=== PATIENT | female | born 1950 | race Caucasian/White ===

== ENCOUNTER → 2024-11-02 | Outpatient (CLI) | payer MEDICARE, SELFPAY ==
[2024-11-02 08:32] LABS: Basophils % (Auto) 0 % (0-2.5); Eosinophils # (Auto) 0.3 Thou/mm3 (0.0-0.5); Eosinophils % (Auto) 3 % (0-10); Hematocrit 43.4 % (36.0-46.0); Hemoglobin 14.1 g/dL (12.0-16.0); Immature Granulocytes % (Auto) 0 % (0-0); Immature Granulocytes Auto 0.02 Thou/mm3 (0.00-0.00); Lymphocytes # (Auto) 2.6 Thou/mm3 (1.0-4.8); Lymphocytes % (Auto) 31 % (10-50); Mean Corpuscular HGB Conc 32.5 g/dl (31.0-37.0); Mean Corpuscular Hemoglobin 30.4 pg (25.0-35.0); Mean Corpuscular Volume 94 fL (80-100); Monocytes # (Auto) 0.6 Thou/mm3 (0.0-0.8); Monocytes % (Auto) 7 % (0-12); Neutrophils # (Auto) 5.1 Thou/mm3 (1.8-7.7); Neutrophils % (Auto) 59 % (37-80); Nucleated Red Blood Cell % 0 /100 WBC (0); Platelet Count 281 Thou/mm3 (140-440); RDW Standard Deviation 44.7 fL (36.4-46.3); Red Blood Count 4.64 Miln/mm3 (4.00-5.20); White Blood Count 8.6 Thou/mm3 (3.6-11.0)
[2024-11-02 08:55] LABS: Alanine Aminotransferase 14 U/L (10-49); Albumin, Serum 4.3 gm/dL (3.4-4.8); Albumin/Globulin Ratio 2.3 (1.2-2.2); Alkaline Phosphatase 90 U/L (46-116); Anion Gap 8 (7-16); Aspartate Amino Transferase 20 U/L (0-34); BUN/Creatinine Ratio 27 Ratio (12-20); Bilirubin,Total 0.6 mg/dL (0.3-1.2); Blood Urea Nitrogen 24 mg/dL (9-23); Calcium 9.1 mg/dL (8.3-10.6); Calcium (Corrected) 9.1 mg/dL (8.5-10.1); Carbon Dioxide 29.9 mMol/L (20.0-31.0); Cardiac Risk Estimate 2.5 RATIO (3.7-5.6); Chloride 106 mMol/L (98-107); Cholesterol 134 mg/dL (132-200); Creatinine (Component) 0.9 mg/dL (0.6-1.3); Globulin 1.9 gm/dL (2.3-3.5); Glucose 99 mg/dL (74-106); HDL Cholesterol 53 mg/dL (40-60); LDL Cholesterol,Calculated 66 mg/dL (0-130); Osmolality,Calculated 290 (275-295); Potassium 4.7 mMol/L (3.4-5.1); Sodium 144 mMol/L (136-145); Total Protein 6.2 gm/dL (5.7-8.2); Triglycerides 77 mg/dL (30-150); eGFR > 60 See Note
== END | disposition home or self-care (01) ==
LOC: COPL 07:55
PROVIDERS: PCP Family Medicine; Referring Provider Family Medicine; Visit Provider Family Medicine
DX: I10 Essential (primary) hypertension (principal); K21.9 Gastro-esophageal reflux disease without esophagitis; E78.2 Mixed hyperlipidemia
CPT/HCPCS: 36415; 80053; 80061; 85025

== ENCOUNTER 2024-11-26 10:33 | Inpatient (IN) | payer MEDICARE, SELFPAY ==
[2024-11-26] VITALS (10 sets, daily range): BP systolic 150–203; BP diastolic 60–98; PULSE 57–100; RESP 15–18; TEMP 36.6–36.8; O2SAT 96–100; BMI 24.5
--- NOTE | 2024-11-26 | XR_ITS ---
Examinations: MRI Brain without intravenous contrast. MRA brain without intravenous contrast. MRA carotids without intravenous contrast 3-D vascular reconstructions Date and time of exam: November 26, 2024 1323 hours Indication: Stroke alert, onset focal neurologic deficit today weakness slurred speech Technique: Multiple axial and sagittal images of the brain have been obtained MRA brain carotid images without contrast obtained, including 3-D postprocessing, vascular maximum intensity projection images Findings: Sell[place] is not enlarged. The optic chiasm and infundibular stalk are not remarkable. Prepontine and interpeduncular cisterns are not enlarged. No localized enlargement of the medulla or kyaw. Fourth ventricle and cerebellar tonsils normal in position. Subacute hemorrhage is not seen. Fourth ventricle is midline. Mass in the cerebellopontine angle region is not evident. 7th and 8th nerve complexes exhibits symmetry. Globes are symmetrical with no retro-orbital mass. Increased white matter signal significant Diffusion-weighted images demonstrate soft foci of restricted diffusion right parietal lobe, right caudate nucleus right parietal white matter Mass-effect upon the ventricular system is not identified. MRA carotid images no significant carotid stenoses. 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
--- NOTE | 2024-11-26 10:42 | PC.NURSE ---
PT BIB BY AMBULANCE FOR WEAKNESS., PER EMS STATED 0500 PT BALANCE WAS OFF AND WAS HAVING SLURRED SPEECH, PT DENIES SYMPTOMS BUT DOES COMPLAIN OF WEAKNESS, PT WAS HYPERTENSIVE 240/110, 185/78. FSBS 115, PT WAS NEG OF GFAST SCALE. PT IS AAOX4 SHE DID STATE SHE FELL AT HOME BUT DENIES ANY LOC OR INJURY.
--- NOTE | 2024-11-26 10:43 | PC.NURSE ---
per dr. vo no stroke alert
--- NOTE | 2024-11-26 10:45 | XR_ITS ---
Examination: CT brain head without contrast. 2-D sagittal coronal reconstructions Date and time of exam:November 26, 2024 1106 hours INDICATIONS: Onset slurred speech generalized weakness beginning this morning CTDI: vol (mGy):49.6 DLP: (mGycm):984 Technique: Multiple CT axial sections of the brain have been obtained, 5 mm slice thickness. Contrast has not been administered. 2-D sagittal, coronal reconstructions have been obtained Low dose protocols were performed. One or more of the following dose reduction techniques were used; automated exposure control, adjustment of the mA and/or KV according to patient size, use of iterative reconstruction technique. Findings: No significant ventricular enlargement. Intra-axial or extra-axial hemorrhage density is not seen. No mass effect or midline shift Basal cisterns are not remarkable. Fourth ventricle is midline. Cranial vault intact. Impression: Negative for acute hemorrhage, mass effect or midline shift Consider brain MRI follow-up, stroke protocol
--- NOTE | 2024-11-26 10:45 | EKG_ITS ---
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
--- NOTE | 2024-11-26 10:46 | XR_ITS ---
Examination: AP chest single view Technique one AP portable semiupright chest single view Exam date and time: November 26, 2024 1052 hours INDICATIONS: Weakness chest pain beginning today. FINDINGS: Normal heart size Lungs are clear. Moderate osteopenia IMPRESSION: No active disease
--- NOTE | 2024-11-26 10:55 | PD.EDADULT ---
ED General RME/HPI General Chief complaint: Weakness Stated complaint: WEAKNESS Time Seen by Provider: 11/26/24 11:53 Arrival date/time: 11/26/24 10:33 RME / HPI RME / HPI narrative: Patient is a 74 years old female with PMH of HTN and anxiety presented to the ED due to generalized weakness and ?slurred speech. Patient reports her symptoms has resolved completely by the time she arrived to the ED. She reports she had some argument with her she developed weakness and difficulty walking as a result of it. She reports her over reacted and reports no slurred speech, stating at that time her mouth was covered with blanket and her has difficulty hearing. She takes all her medication appropriately. She denied any weakness on specific side of the body, dizziness, facial droop, fever or chills. She denies any substance use including alcohol and tobacco. arrived later to the bedside reporting he also noticed left facial droop at that time. Related Data Home Medications ?Medication ?Instructions ?Recorded ?Confirmed enalapril maleate 20 mg tablet 20 mg PO QDAY 11/24/18 11/26/24 meloxicam 15 mg tablet 15 mg PO QDAY 11/24/18 11/26/24 nadolol 20 mg tablet 20 mg PO QDAY 11/24/18 11/26/24 omeprazole 40 mg capsule,delayed 40 mg PO QDAY 11/24/18 11/26/24 release atorvastatin 20 mg tablet 20 mg PO DAILY 10/26/23 11/26/24 clorazepate dipotassium 7.5 mg 7.5 mg PO DAILY PRN Anxiety 10/26/23 11/26/24 tablet famotidine 20 mg tablet 20 mg PO BID 10/26/23 11/26/24 Allergies Allergy/AdvReac Type Severity Reaction Status Date / Time shellfish derived Allergy Severe Hives Verified 11/26/24 11:21 Sulfa (Sulfonamide Allergy Severe Hives Verified 11/26/24 11:21 Antibiotics) Review of Systems Review of Systems Systems Reviewed: All systems reviewed, normal except as documented ED Exam Narrative Physical exam: Gen: Well-developed and well-nourished. HEENT: NCAT, PERRLA, EOMI, MMM, anicteric conjunctivae. CVS: normal S1 and S2. RRR. No M/R/G. Resp: CTA B/L. No rhonchi, rales, crackles or wheezing. Abd: soft, non-tender, non-distended. BS+ in all 4 quadrants. MSK: Good ROM in BUE & BLE. No edema or rash. Neuro: CN II-XII grossly intact. Strength 5/5 in BUE & BLE. Alert and oriented x3. Psych: appropriate mood and affect. Course Course Course Narrative: Head CT negative for acute hemorrhage. Labs are WNL. Teleneuro consulted, patient was given aspirin 325 mg. MRI showed multiple acute infarcts right parietal lobe right caudate nucleus. Stroke alert called. Quality Measures none Orders Category Date Time Status COVID-19 Screening Questionnaire NOW Care 11/26/24 14:59 Active Decision to Admit X1 Care 11/26/24 14:59 Completed EKG (ED ONLY) *Do not use* NOW Care 11/26/24 10:45 Completed MRI Screening NOW Care 11/26/24 12:06 Active Nurse Swallow Screen X1 Care 11/26/24 15:[address] angio stroke protocol Stat Exams 11/26/24 15:[address] head/brain wo con Stat Exams 11/26/24 10:45 Completed CXRP [XR chest 1V portable] Stat Exams 11/26/24 10:46 Completed EKG (ED Only) Stat Exams 11/26/24 10:45 Draft MR stroke protocol Stat Exams 11/26/24 Completed BMP [Basic Metabolic Panel] Stat Lab 11/26/24 08:55 Completed CBC Stat Lab 11/26/24 08:55 Completed Aspirin Med 11/26/24 14:59 Discontinued 325 mg PO X1 ONE DiphenhydrAMINE INJ [Benadryl Inj] Med 11/26/24 13:02 Discontinued 50 mg IVP X1 ONE Vital Signs Vital signs: Vital Signs Temperature 98.1 F 11/26/24 10:52 Pulse Rate 73 11/26/24 10:52 Respiratory Rate 16 11/26/24 10:52 Blood Pressure 203/98 H 11/26/24 10:52 Pulse Oximetry (%) 98 11/26/24 10:52 Oxygen Delivery Method Room Air 11/26/24 10:52 [facility] Patient data External records reviewed:: [facility] previous records and EMS form Clinical information provided by:: patient and EMS Social determinants that could affect healthcare access:: none Patient has the following chronic illnesses:: HTN and anxiety How is presenting disease/condition affected by chronic disease/condition?: caused by Evaluation data The following diagnostics were reviewed and interpreted by me:: lab results, radiology exam(s) and EKG tracing(s) Lab and/or radiology exams considered but not ordered:: echo Interpretation Summary: Head CT negative for acute hemorrhage. Medications Medications considered but not ordered:: Clopidogrel, atorvastatin Medication administrations:: Medication Administration History Discontinued Medications Aspirin (Aspirin 325 Mg Tablet) 325 mg PO X1 ONE Stop: 11/26/24 15:00 Diphenhydramine HCl (Diphenhydramine Inj 50 Mg/Ml Vial) 50 mg IVP X1 ONE Stop: 11/26/24 13:03 Last Admin: 11/26/24 13:05 Dose: 50 mg Documented By: BD Aspirin 325 mg. Consultations Consultation(s) initiated? (list below): No Diagnosis Differential Diagnosis ED Complaint MDM: ICH, CVA, seizure, TIA, HTN emergency, stress reaction Most likely diagnosis given after review of the tests above:: Acute stroke Admission Indicated Admission indicated?: indicated Explain why admission is indicated or not indicated:: Stroke work up and observation is indicated. Admission Request Was there a request for admission?: No Disposition Plan Disposition Plan: Admit Medical Decision Making Differential Diagnosis Differential Diagnosis: ICH, CVA, seizure, TIA, HTN emergency, stress reaction Lab Data 11/26/24 08:55 11/26/24 08:55 Labs: Lab Results 11/26/24 Range/Units 08:55 WBC 10.7 (3.6-11.0) Thou/mm3 RBC 4.78 (4.00-5.20) Miln/mm3 Hgb 14.6 (12.0-16.0) g/dL Hct 44.3 (36.0-46.0) % MCV 93 (80-100) fL MCH 30.5 (25.0-35.0) pg MCHC 33.0 (31.0-37.0) g/dl RDW Std Deviation 43.6 (36.4-46.3) fL Plt Count 284 (140-440) Thou/mm3 Neut % (Auto) 67 (37-80) % Lymph % (Auto) 25 (10-50) % Tyrrell % (Auto) 6 (0-12) % Eos % (Auto) 1 (0-10) % Baso % (Auto) 0 (0-2.5) % Neut # (Auto) 7.1 (1.8-7.7) Thou/mm3 Lymph # (Auto) 2.7 (1.0-4.8) Thou/mm3 Tyrrell # (Auto) 0.7 (0.0-0.8) Thou/mm3 Eos # (Auto) 0.2 (0.0-0.5) Thou/mm3 Baso # (Auto) 0.0 (0.0-0.2) Thou/mm3 Immature Gran # (Auto) 0.03 H (0.00-0.00) Thou/mm3 Absolute Nucleated RBC 0.00 (0.00-0.00) Thou/mm3 Immature Gran % 0 (0-0) % Nucleated RBC % 0 (0) /100 WBC Sodium 144 (136-145) mMol/L Potassium 4.2 (3.4-5.1) mMol/L Chloride 108 H (98-107) mMol/L Carbon Dioxide 27.7 (20.0-31.0) mMol/L Anion Gap 8 (7-16) BUN 21 (9-23) mg/dL Creatinine 0.9 (0.6-1.3) mg/dL Estim Creat Clear Calc 54.1 L (>60) mL/min eGFR > 60 (60 - ) See Note BUN/Creatinine Ratio 23 H (12-20) Ratio Glucose 108 H (74-106) mg/dL Calculated Osmolality 290 (275-295) Calcium 9.4 (8.3-10.6) mg/dL Discharge Plan Plan Patient Disposition: Admit Acute Care w/in Hospital Prescriptions/Referrals Prescriptions/Med Rec: No Action enalapril maleate 20 mg Tablet 20 mg PO QDAY meloxicam 15 mg Tablet 15 mg PO QDAY omeprazole 40 mg Capsule,Delayed Release(Dr/Ec) 40 mg PO QDAY nadolol 20 mg Tablet 20 mg PO QDAY atorvastatin 20 mg tablet 20 mg PO DAILY Patient Comments: TAKE 1 TABLET BY MOUTH EVERY DAY famotidine 20 mg tablet 20 mg PO BID Patient Comments: TAKE 1 TABLET BY MOUTH TWICE A DAY FOR 90 DAYS clorazepate dipotassium 7.5 mg tablet 7.5 mg PO DAILY PRN (Reason: Anxiety) Patient Comments: TAKE 1 TABLET BY MOUTH EVERY DAY FOR 90 DAYS Problem List Clinical Impression: Stroke Patient/Caregiver Discharge Instructions Print Language: Burkinan Stand Alone Forms: Naty Award Info., Patient Portal Info Letter
--- NOTE | 2024-11-26 11:11 | PC.NURSE ---
PER AT BEDSIDE AROUND 1000 WENT IN TO CHECK SHE WAS SLEEPING LATER THAN USUAL AND WHEN HE STARTED TO TALK TO HER HER SPEECH WAS SLURRED. HE STATES WHEN HE LOOKED AT HER SHE HAD LEFT SIDED FACIAL DROOP. 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
[2024-11-26 11:15] LABS: Basophils % (Auto) 0 % (0-2.5); Eosinophils # (Auto) 0.2 Thou/mm3 (0.0-0.5); Eosinophils % (Auto) 1 % (0-10); Hematocrit 44.3 % (36.0-46.0); Hemoglobin 14.6 g/dL (12.0-16.0); Immature Granulocytes % (Auto) 0 % (0-0); Immature Granulocytes Auto 0.03 Thou/mm3 (0.00-0.00); Lymphocytes # (Auto) 2.7 Thou/mm3 (1.0-4.8); Lymphocytes % (Auto) 25 % (10-50); Mean Corpuscular Hemoglobin 30.5 pg (25.0-35.0); Mean Corpuscular Volume 93 fL (80-100); Monocytes # (Auto) 0.7 Thou/mm3 (0.0-0.8); Monocytes % (Auto) 6 % (0-12); Neutrophils # (Auto) 7.1 Thou/mm3 (1.8-7.7); Neutrophils % (Auto) 67 % (37-80); Nucleated Red Blood Cell % 0 /100 WBC (0); Platelet Count 284 Thou/mm3 (140-440); RDW Standard Deviation 43.6 fL (36.4-46.3); Red Blood Count 4.78 Miln/mm3 (4.00-5.20); White Blood Count 10.7 Thou/mm3 (3.6-11.0)
[2024-11-26 11:35] LABS: Anion Gap 8 (7-16); BUN/Creatinine Ratio 23 Ratio (12-20); Blood Urea Nitrogen 21 mg/dL (9-23); Calcium 9.4 mg/dL (8.3-10.6); Carbon Dioxide 27.7 mMol/L (20.0-31.0); Chloride 108 mMol/L (98-107); Creatinine (Component) 0.9 mg/dL (0.6-1.3); Estimated Creatinine Clearance 54.1 mL/min (>60); Glucose 108 mg/dL (74-106); Osmolality,Calculated 290 (275-295); Potassium 4.2 mMol/L (3.4-5.1); Sodium 144 mMol/L (136-145); eGFR > 60 See Note
--- NOTE | 2024-11-26 12:52 | PC.NURSE ---
IN WITH PT
[2024-11-26] MEDS: DiphenhydrAMINE INJ 50 MG/ML VIAL IVP (13:05)
--- NOTE | 2024-11-26 14:24 | PC.NURSE ---
VITALS NOT DONE 1400 PT WAS IN MRI
--- NOTE | 2024-11-26 14:45 | PC.NURSE ---
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 Stat consult entered with [facility] at 1443. Called ED to have the neuro cart placed in the room.
--- NOTE | 2024-11-26 15:13 | PD.TNEURO ---
[facility] Consultation Consultation Date 11/26/24 Most Recent Vital Signs Last Vital Signs Temp 98.2 F 11/26/24 14:28 Pulse 60 11/26/24 14:28 Resp 15 11/26/24 14:28 BP 176/93 H 11/26/24 14:28 Pulse Ox 99 11/26/24 14:28 O2 Del Method Room Air 11/26/24 14:28 Consultation Narrative [facility] Consult Services Stat Consult Patient Name:???alla dunlap Date of :???1950 Identification Number:??? Date of Service:???11/26/2024 14:21:54 Diagnosis:?I63.89 - Cerebrovascular accident (CVA) due to other mechanism (HCCC) ?G93.49 - Encephalopathy Multifactorial Impression Acute neurological symptoms with possible stroke The patient presented with sudden onset weakness, gait instability, and falls starting at 5 AM. She denies prior similar episodes. 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 These symptoms, combined with very high blood pressure, raise concern for a possible acute stroke. However, the etiology remains unclear - it could be due to hypertensive emergency or an ischemic event. CTH is unremarkable. An MRI/MRA has been performed, but results are pending full interpretation. ? Recommendations: Our recommendations are outlined below. Laboratory Studies :Lipid panel I orderedHemoglobin A1c Antithrombotic Medication :Permissive hypertension, Antihypertensives with prn for first 24-48 hrs post stroke onset. If BP greater than 220/120 give Labetalol IV or Vasotec IV - Start aspirin 325 mg loading dose, then continue with baby aspirin Nursing Recommendations :IV Fluids, avoid dextrose containing fluids, Maintain euglycemia Neuro checks q4 hrs x 24 hrs and then per shift Head of bed 30 degrees Continue with Telemetry Consultations :Recommend Speech therapy if failed dysphagia screen Physical therapy/Occupational therapy DVT Prophylaxis :Choice of Primary Team Disposition :Neurology will follow Metrics: Dispatch Time: 11/26/2024 14:21:54 Callback Response Time: 11/26/2024 14:27:31 Primary Provider Notified of Diagnostic Impression and Management Plan on: 11/26/2024 15:04:37 CT HEAD: As Per Radiologist CT Head Showed No Acute Hemorrhage or Acute Core Infarct Chief Complaint: Weakness History of Present Illness:Patient is a 74 year old Female. The patient, Ms. Alla Dunlap, presents with acute onset of neurological symptoms. At 5:00 AM on the day of presentation, she experienced difficulty getting out of bed, feeling woozy and weak. She reports inability to walk straight, veering sideways, and falling multiple times. The patient denies any prior similar episodes. She denies dizziness but confirms generalized weakness. The patient also mentions high blood pressure on the day of presentation. The patient's , who is at the bedside, reports minimal left-sided facial droop, which is unusual for the patient. There is also noted slurred speech. The patient denies any history of smoking or alcohol consumption. ? Past Medical History: ?Hypertension Other PMH:? Anxiety Medications: No Anticoagulant use? No Antiplatelet use Reviewed EMR for current medications Allergies:? Reviewed Social History: Smoking: No Alcohol Use: No Family History: There is no family history of premature cerebrovascular disease pertinent to this consultation ROS : 14 Points Review of Systems was performed and was negative except mentioned in HPI. Past Surgical History: There Is No Surgical History Contributory To Today?s Visit ? Examination: BP(176/93),?Pulse(60), 1A: Level of Consciousness - Alert; keenly responsive?+ 0 1B: Ask Month and Age - Both Questions Right?+ 0 1C: Blink Eyes & Squeeze Hands - Performs Both Tasks?+ 0 2: Test Horizontal Extraocular Movements - Normal?+ 0 3: Test Visual García - No Visual Loss?+ 0 4: Test Facial Palsy (Use Grimace if Obtunded) - Minor paralysis (flat nasolabial fold, smile asymmetry)?+ 1 5A: Test Left Arm Motor Drift - No Drift for 10 Seconds?+ 0 5B: Test Right Arm Motor Drift - No Drift for 10 Seconds?+ 0 6A: Test Left Leg Motor Drift - No Drift for 5 Seconds?+ 0 6B: Test Right Leg Motor Drift - No Drift for 5 Seconds?+ 0 7: Test Limb Ataxia (FNF/Heel-Aaron) - No Ataxia?+ 0 8: Test Sensation - Normal; No sensory loss?+ 0 9: Test Language/Aphasia - Normal; No aphasia?+ 0 10: Test Dysarthria - Mild-Moderate Dysarthria: Slurring but can be understood?+ 1 11: Test Extinction/Inattention - No abnormality?+ 0 NIHSS Score:?2 Spoke with :?Dr. Vigil This consult was conducted in real time using interactive audio and video technology. Patient was informed of the technology being used for this visit and agreed to proceed. Patient located in hospital and provider located at home/office setting. Patient is being evaluated for possible acute neurologic impairment and high probability of imminent or life - threatening deterioration.I spent total of 35 minutes providing care to this patient, including time for face to face visit via telemedicine, review of medical records, imaging studies and discussion of findings with providers, the patient and / or family. Dr Jules Henriquez [facility] For Inpatient follow-up with [facility] physician please call [facility] at . As we are not an outpatient service for any post hospital discharge needs please contact the hospital for assistance. If you have any questions for the [facility] physicians or need to reconsult for clinical or diagnostic changes please contact us via [facility] at .
[2024-11-26] MEDS: Aspirin 325 MG TABLET PO (15:24)
[2024-11-26 16:27] LABS: Glucose Estimated Average 108 mg/dL (80-131); Hemoglobin A1C 5.4 % Hgb (4.8-6.0)
--- NOTE | 2024-11-26 16:28 | ESHP_ITS ---
<Statement entered by Abdirahman Garibay MD - 11/26/24 18:21> This patient is a 74-year-old female with past medical history of anxiety and hypertension presented with signs symptoms of left-sided facial droop and slurred speech with generalized weakness started at 7 AM. Patient presented for stroke workup. Head CT was unremarkable. MRI brain was significant for acute infarct in parietal lobe. Patient was out of window for tPA. Aspirin 325 mg was given x 1. Will allow for permissive hypertension. Neurology has been consulted for further recommendations. Ordered PT/speech evaluation. Med rec pending. Will follow-up with neurology recommendations. All labs and orders were reviewed. I saw and examined the patient, and I agree with current management stated by Dr Lauren MD,PGY1. Plan of care was discussed with the attending physician and resident physician. Disclaimer: Despite multiple revisions, due to the dictation software being used, the document bellow may not be free of grammatical errors including phonetic/typographic errors. However, this does not deter from our commitment to providing health care in the patient's best interest in mind. Dr. Lani MD, PGY 2 Documentation for date of: 11/26/24 HPI History of Present Illness History of present illness: Alla Vick is a 74-year-old female with past medical history of hypertension, gout, and anxiety who presented to the ED on 11/26 for gait instability that started after waking up at 5 AM in the morning. She states that after waking up she tried to walk to the bathroom and had difficulty due to gait instability. Denies paresthesias, vision changes, or headaches. called paramedics around 10 AM and was brought to the ED. In ED, she was told that she had slurred speech and left-sided facial droop that had resolved. Walk to bathroom in ED and states that gait instability improved. Denies prior episodes of gait instability. States that mother and grandmother had hemorrhagic strokes in their 50s and 60s. In ED, MRI/MRA positive for acute infarcts of the right parietal lobe and right caudate nucleus. CT head negative for hemorrhage, mass effect, or midline shift. EKG showed NSR of 61 bpm. BP noted to be 200/98 but it since decreased to 166/60 without intervention and allowing for permissive hypertension. Otherwise vital signs stable and labs insignificant. Given aspirin loading dose of 325 mg x 1 and started LR at 110 cc/h. Admitted for further management of ischemic stroke. PMHx: Hypertension, gout, anxiety Medications: Atorvastatin 20 mg p.o. daily, enalapril 20 mg p.o. daily, nadolol 20 mg p.o. daily, omeprazole 40 mg p.o. daily, meloxicam 15 mg p.o. daily, clorazepate 7.5 mg p.o. daily. FHx: Hemorrhagic strokes in mom and grandmother in 50s and 60s SHx: Denies smoking cigarettes, drinking alcohol, or illicit drug use PSHx: Cholecystectomy at age 28 Review of Systems Review of Systems Systems Reviewed: All systems reviewed, normal except as documented Exam Vital Signs Temp Pulse Resp BP Pulse Ox O2 Del Method 98.0 F 60 15 166/60 H 100 Room Air 11/26/24 15:47 11/26/24 15:47 11/26/24 15:47 11/26/24 15:47 11/26/24 15:47 11/26/24 15:47 Narrative Exam General: AOx3, no acute distress, able to speak full sentences HEENT: NC/AT, mucous membranes moist, bilateral sclera anicteric Cardiovascular: regular rate and rhythm, S1/S2 present, no murmurs appreciated Pulmonary: clear to auscultation bilaterally, no rales/rhonchi/wheezes Abdominal: soft, non-tender, non-distended, no rebound/guarding, normal bowel sounds present Musculoskeletal: normal ROM, no peripheral edema Skin: warm and dry, intact, no rashes Neuro: CN II-XII intact, no focal deficits Results: Labs 11/26/24 08:55 11/26/24 08:55 Labs: Short CBC 11/26/24 Range/Units 08:55 WBC 10.7 (3.6-11.0) Thou/mm3 Hgb 14.6 (12.0-16.0) g/dL Hct 44.3 (36.0-46.0) % Plt Count 284 (140-440) Thou/mm3 BMP 11/26/24 08:55 Sodium 144 Potassium 4.2 Chloride 108 H Carbon Dioxide 27.7 BUN 21 Creatinine 0.9 Glucose 108 H Calcium 9.4 Quality Measures Quality Measures none Advance care planning discussed with:: other Medications Home Medications and Allergies Home Medications ?Medication ?Instructions ?Recorded ?Confirmed ?Type enalapril maleate 20 mg tablet 20 mg PO QDAY 11/24/18 11/26/24 History meloxicam 15 mg tablet 15 mg PO QDAY 11/24/1811/26 History nadolol 20 mg tablet 20 mg PO QDAY 11/24/1811/26 History omeprazole 40 mg capsule,delayed 40 mg PO .COMPLEX 10/1411/26/24 History release atorvastatin 20 mg tablet 20 mg PO DAILY 10/26/2312/18 History clorazepate dipotassium 7.5 mg 7.5 mg PO DAILY PRN Anx iety 10/26/23 11/26/24 History tablet famotidine 20 mg tablet 20 mg PO BID 10/26/23 History Allergies Allergy/AdvReac Type Severity Reaction Status Date / Time shellfish derived Allergy Severe Hives Verified 11/26/24 11:21 Sulfa (Sulfonamide Allergy Severe Hives Verified 11/26/24 11:21 Antibiotics) Visit Medications Acetaminophen (Acetaminophen 325 Mg Tablet) 650 mg PO Q6H PRN PRN Reason: PAIN OR FEVER > 100.4 Stop: 12/26/24 15:46 Aspirin (Aspirin Ec 81 Mg Tabec) 81 mg PO QDAY [facility] Stop: 12/27/24 08:59 Atorvastatin Calcium (Atorvastatin Calcium 20 Mg Tablet) 80 mg PO HS [facility] Stop: 12/26/24 20:59 Lactated Ringer's (Lactated Ringers) 1,000 mls @ 110 mls/hr IV .Q9H6M [facility] Stop: 12/26/24 15:57 Ondansetron HCl (Ondansetron Inj 2 Mg/Ml Inj 2 Ml) 4 mg IV Q6H PRN; Protocol PRN Reason: NAUSEA OR VOMITING Stop: 12/26/24 15:46 Pantoprazole Sodium (Pantoprazole Inj 40 Mg Vial) 40 mg IVP QDAY [facility] Stop: 12/27/24 08:59 Discontinued Medications Aspirin (Aspirin 325 Mg Tablet) 325 mg PO X1 ONE Stop: 11/26/24 15:00 Last Admin: 11/26/24 15:24 Dose: 325 mg Diphenhydramine HCl (Diphenhydramine Inj 50 Mg/Ml Vial) 50 mg IVP X1 ONE Stop: 11/26/24 13:03 Last Admin: 11/26/24 13:05 Dose: 50 mg Assessment & Plan Plan Alla Vick is a 74-year-old female with past medical history of hypertension, gout, and anxiety who presented to the ED on 11/26 for gait instability that started after waking up at 5 AM in the morning. She states that after waking up she tried to walk to the bathroom and had difficulty due to gait instability. Denies paresthesias, vision changes, or headaches. called paramedics around 10 AM and was brought to the ED. In ED, she was told that she had slurred speech and left-sided facial droop that had resolved. Walk to bathroom in ED and states that gait instability improved. Denies prior episodes of gait instability. States that mother and grandmother had hemorrhagic strokes in their 50s and 60s. In ED, MRI/MRA positive for acute infarcts of the right parietal lobe and right caudate nucleus. CT head negative for hemorrhage, mass effect, or midline shift. EKG showed NSR of 61 bpm. BP noted to be 200/98 but it since decreased to 166/60 without intervention and allowing for permissive hypertension. Otherwise vital signs stable and labs insignificant. Given aspirin loading dose of 325 mg x 1 and started LR at 110 cc/h. Admitted for further management of ischemic stroke. #CVA, ischemic stroke #Acute infarct of right parietal lobe and caudate nucleus Presented with gait instability upon waking up and reported slurred speech and facial droop in ED. MRI/MRI positive for acute strokes in right parietal lobe and caudate nucleus. CT head negative for hemorrhage, mass effect, midline shift. No history of previous strokes or TIAs but does have family history as noted. Risk factors include age, hypertension and will follow-up labs for lipid panel and A1c as well as TSH. ? Teleneurology consulted ? Aspirin loading dose given in ED (325 mg x 1) and baby aspirin thereafter ? Permissive hypertension (220/120) for first 24 to 48 hours ? LR at 110 cc/h ? Neurology consulted, appreciate recommendations ? Atorvastatin 80 mg p.o. at bedtime ? Aspirin 81 mg p.o. daily ? Follow-up lipid panel, A1c, TSH ? Follow-up echo with bubble study ? Physical therapy, speech therapy #Hypertension Home nadolol 20 mg p.o. daily and enalapril 20 mg p.o. daily ? Hold home antihypertensives given permissive hypertension for 24 to 48 hours #Gout Home meloxicam 50 mg p.o. daily ? Resume after speech therapy evaluation #Anxiety Home clorazepate 7.5 mg p.o. daily as needed ? Resume after speech therapy evaluation Hospital management: Disposition: Telemetry for further management for ischemic stroke Fluids: LR at 100 cc/h Diet: N.p.o., pending speech therapy eval Lines: Peripheral IV DVT prophylaxis: Heparin SC twice daily GI prophylaxis: Pantoprazole CODE STATUS: full code ----- Plan discussed with attending physician Dr. Garcia and senior resident physician Dr. Lani Aguilar MD PGY-1 Internal Medicine
--- NOTE | 2024-11-26 16:42 | PC.SS ---
Initial assessment: this is 74 year old female pending admission for stroke. Patient appeared alert and oriented to person, place and situation. Patient's spouse at bed side to assist with providing information. Patient confirmed demographic information. Patient reports living at home with spouse, Tab Dixon. Patient assigned spouse as her emergency contact. Patient reports being independent with ADL's prior to ED visit. Patient denies the use of DME in the home. Patient is followed by Dr. Amarilys Schultz for primary care. Patient plans to return home upon discharge. Patient reports family/spouse is able to transport home. D/c plan: Home Next of kin: Spouse, Tab Dxion
[2024-11-26] MEDS: RINGERS LACTATED 1000 ML 1,000 ML 110 ML IV (17:01)
[2024-11-26] MEDS: ATORVASTATIN CALCIUM 20 MG TABLET 80 MG PO (22:40)
[2024-11-26] MEDS: HEPARIN SOD INJ 5000 UNIT/ML VIAL 7500 UNIT SC (22:45)
[2024-11-26] MEDS: hydrOXYzine HCL 25 MG TABLET PO (23:30)
[2024-11-26] MEDS: PANTOPRAZOLE INJ 40 MG VIAL IV (23:30)
[2024-11-27] VITALS: BP 158/64; PULSE 56; RESP 12; TEMP 36.9; O2SAT 96
[2024-11-27] MEDS: RINGERS LACTATED 1000 ML 1,000 ML 110 ML IV (02:55)
[2024-11-27] MEDS: ACETAMINOPHEN 325 MG TABLET 650 MG PO ×3 (03:49→20:47)
[2024-11-27 04:00] VITALS: BP 147/67; PULSE 58; PULSE 60; RESP 12; TEMP 36.9; O2SAT 96
[2024-11-27 05:41] LABS: Basophils % (Auto) 0 % (0-2.5); Eosinophils # (Auto) 0.2 Thou/mm3 (0.0-0.5); Eosinophils % (Auto) 2 % (0-10); Hematocrit 40.7 % (36.0-46.0); Hemoglobin 13.6 g/dL (12.0-16.0); Immature Granulocytes % (Auto) 0 % (0-0); Immature Granulocytes Auto 0.04 Thou/mm3 (0.00-0.00); Lymphocytes # (Auto) 3.1 Thou/mm3 (1.0-4.8); Lymphocytes % (Auto) 26 % (10-50); Mean Corpuscular HGB Conc 33.4 g/dl (31.0-37.0); Mean Corpuscular Hemoglobin 30.6 pg (25.0-35.0); Mean Corpuscular Volume 92 fL (80-100); Monocytes # (Auto) 0.9 Thou/mm3 (0.0-0.8); Monocytes % (Auto) 8 % (0-12); Neutrophils # (Auto) 7.5 Thou/mm3 (1.8-7.7); Neutrophils % (Auto) 64 % (37-80); Nucleated Red Blood Cell % 0 /100 WBC (0); Platelet Count 243 Thou/mm3 (140-440); RDW Standard Deviation 42.6 fL (36.4-46.3); Red Blood Count 4.44 Miln/mm3 (4.00-5.20); White Blood Count 11.7 Thou/mm3 (3.6-11.0)
[2024-11-27 06:00] VITALS: BMI 24.4
[2024-11-27 06:36] LABS: Alanine Aminotransferase 12 U/L (10-49); Alkaline Phosphatase 79 U/L (46-116); Anion Gap 9 (7-16); Aspartate Amino Transferase 19 U/L (0-34); BUN/Creatinine Ratio 16 Ratio (12-20); Bilirubin,Total 0.7 mg/dL (0.3-1.2); Blood Urea Nitrogen 13 mg/dL (9-23); Calcium 9.2 mg/dL (8.3-10.6); Calcium (Corrected) 9.2 mg/dL (8.5-10.1); Carbon Dioxide 28.8 mMol/L (20.0-31.0); Cardiac Risk Estimate 3.1 RATIO (3.7-5.6); Chloride 108 mMol/L (98-107); Cholesterol 138 mg/dL (132-200); Creatinine (Component) 0.8 mg/dL (0.6-1.3); Estimated Creatinine Clearance 60.9 mL/min (>60); Glucose 85 mg/dL (74-106); HDL Cholesterol 45 mg/dL (40-60); LDL Cholesterol,Calculated 70 mg/dL (0-130); Magnesium 1.8 mg/dL (1.6-2.6); Osmolality,Calculated 289 (275-295); Phosphorous 3.6 mg/dL (2.4-5.1); Potassium 3.9 mMol/L (3.4-5.1); Sodium 146 mMol/L (136-145); Thyroid Stimulating Hormone 1.98 uIU/mL (0.55-4.78); Triglycerides 115 mg/dL (30-150); eGFR > 60 See Note
[2024-11-27 08:00] VITALS: BP 149/60; PULSE 57; RESP 20; TEMP 36.1; O2SAT 97
[2024-11-27] MEDS: HEPARIN SOD INJ 5000 UNIT/ML VIAL 7500 UNIT SC ×2 (09:36→20:46)
[2024-11-27] MEDS: ASPIRIN EC 81 MG TABEC PO (09:36)
[2024-11-27] MEDS: FAMOTIDINE 20 MG TABLET PO (09:36)
--- NOTE | 2024-11-27 11:41 | ESPR_ITS ---
<Statement entered by Abdirahman Garibay MD - 11/27/24 15:22> Patient was seen and examined at the bedside. Patient reported to feel better and had no complaints. Her speech has improved. Pending neurology recommendations. Will continue with aspirin and statin. Echocardiogram with bubble study was pending. Diet was resumed as patient passed swallow screen. All labs and orders were reviewed. I saw and examined the patient, and I agree with current management stated by Dr Lauren MD,PGY1. Plan of care was discussed with the attending physician and resident physician. Disclaimer: Despite multiple revisions, due to the dictation software being used, the document bellow may not be free of grammatical errors including phonetic/typographic errors. However, this does not deter from our commitment to providing health care in the patient's best interest in mind. Dr. Lani MD, PGY 2 Documentation for date of: 11/27/24 Subjective Subjective Interval history: Alla Vick is a 74-year-old female with past medical history of hypertension, gout, and anxiety who presented to the ED on 11/26 for gait instability that started after waking up at 5 AM in the morning. She states that after waking up she tried to walk to the bathroom and had difficulty due to gait instability. Denies paresthesias, vision changes, or headaches. called paramedics around 10 AM and was brought to the ED. In ED, she was told that she had slurred speech and left-sided facial droop that had resolved. Walk to bathroom in ED and states that gait instability improved. Denies prior episodes of gait instability. States that mother and grandmother had hemorrhagic strokes in their 50s and 60s. In ED, MRI/MRA positive for acute infarcts of the right parietal lobe and right caudate nucleus. CT head negative for hemorrhage, mass effect, or midline shift. EKG showed NSR of 61 bpm. BP noted to be 200/98 but it since decreased to 166/60 without intervention and allowing for permissive hypertension. Otherwise vital signs stable and labs insignificant. Given aspirin loading dose of 325 mg x 1 and started LR at 110 cc/h. Admitted for further management of ischemic stroke. 11/27: Seen and examined at bedside in telemetry. No acute overnight events reported. Has been able to ambulate to and from bathroom without difficulty. No reported recurrences of slurred speech or facial droop. Underwent formal echo with bubble study and pending read. Passed formal speech swallow evaluation and restarted on diet. Exam Vital Signs Temp Pulse Resp BP Pulse Ox O2 Del Method 97.0 F 57 L 20 149/60 H 97 Room Air 11/27/24 08:00 11/27/24 08:00 11/27/24 08:00 11/27/24 08:00 11/27/24 08:00 11/27/24 08:00 Narrative Exam General: AOx3, no acute distress, able to speak full sentences HEENT: NC/AT, mucous membranes moist, bilateral sclera anicteric Cardiovascular: regular rate and rhythm, S1/S2 present, no murmurs appreciated Pulmonary: clear to auscultation bilaterally, no rales/rhonchi/wheezes Abdominal: soft, non-tender, non-distended, no rebound/guarding, normal bowel sounds present Musculoskeletal: normal ROM, no peripheral edema Skin: warm and dry, intact, no rashes Neuro: CN II-XII intact, no focal deficits Objective Labs 11/27/24 04:57 11/27/24 04:57 Labs: Laboratory Results - last 24 hr 11/26/24 11/27/24 08:55 04:57 WBC 11.7 H RBC 4.44 Hgb 13.6 Hct 40.7 MCV 92 MCH 30.6 MCHC 33.4 RDW Std Deviation 42.6 Plt Count 243 D Neut % (Auto) 64 Lymph % (Auto) 26 [place] % (Auto) 8 Eos % (Auto) 2 Baso % (Auto) 0 Neut # (Auto) 7.5 Lymph # (Auto) 3.1 [place] # (Auto) 0.9 H Eos # (Auto) 0.2 Baso # (Auto) 0.0 Immature Gran # (Auto) 0.04 H Absolute Nucleated RBC 0.00 Immature Gran % 0 Nucleated RBC % 0 Sodium 146 H Potassium 3.9 Chloride 108 H Carbon Dioxide 28.8 Anion Gap 9 BUN 13 Creatinine 0.8 Estim Creat Clear Calc 60.9 L eGFR > 60 BUN/Creatinine Ratio [address] Glu mg/dL 108 Hemoglobin A1c 5.4 Calculated Osmolality 289 Calcium 9.2 Corrected Calcium 9.2 Phosphorus 3.6 Magnesium 1.8 Total Bilirubin 0.7 AST 19 ALT 12 Alkaline Phosphatase 79 Total Protein 6.0 Albumin 4.0 Globulin 2.0 L Albumin/Globulin Ratio 2.0 Triglycerides 115 Cholesterol 138 LDL Cholesterol, Calc 70 HDL Cholesterol 45 Cholesterol/HDL Ratio 3.1 L TSH 1.98 Quality Measures Quality Measures none Advance care planning discussed with:: other Assessment & Plan Assessment Current Active Medications: Generic Name Dose Route Start Last Admin Trade Name Freq PRN Reason Stop Dose Admin Acetaminophen 650 mg 11/26/24 15:47 11/27/24 03:49 Acetaminophen 325 Mg Tablet PO 12/26/24 15:46 650 mg Q6H PRN Administration PAIN OR FEVER > 100.4 Aspirin 81 mg 11/27/24 09:00 11/27/24 09:36 Aspirin Ec 81 Mg Tabec PO 12/27/24 08:59 81 mg QDAY [facility] Administration Atorvastatin Calcium 80 mg 11/26/24 21:00 11/26/24 22:40 Atorvastatin Calcium 20 Mg Tablet PO 12/26/24 20:59 80 mg HS [facility] Administration Famotidine 20 mg 11/27/24 09:00 11/27/24 09:36 Famotidine 20 Mg Tablet PO 12/27/24 08:59 20 mg DAILY [facility] Administration Heparin Sodium (Porcine) 7,500 unit 11/26/24 21:00 11/27/24 09:36 Heparin Sod Inj 5000 Unit/Ml Vial SC 12/10/24 20:59 7,500 unit Q12HR [facility] Administration Non-Formulary Medication 7.5 mg 11/26/24 22:00 Clorazepate Dipotassium PO 12/27/24 08:59 DAILY PRN anxiety Ondansetron HCl 4 mg 11/26/24 15:47 Ondansetron Inj 2 Mg/Ml Inj 2 Ml IV 12/26/24 15:46 Q6H PRN NAUSEA OR VOMITING Protocol Plan Alla Vick is a 74-year-old female with past medical history of hypertension, gout, and anxiety who presented to the ED on 11/26 for gait instability that started after waking up at 5 AM in the morning. She states that after waking up she tried to walk to the bathroom and had difficulty due to gait instability. Denies paresthesias, vision changes, or headaches. called paramedics around 10 AM and was brought to the ED. In ED, she was told that she had slurred speech and left-sided facial droop that had resolved. Walk to bathroom in ED and states that gait instability improved. Denies prior episodes of gait instability. States that mother and grandmother had hemorrhagic strokes in their 50s and 60s. In ED, MRI/MRA positive for acute infarcts of the right parietal lobe and right caudate nucleus. CT head negative for hemorrhage, mass effect, or midline shift. EKG showed NSR of 61 bpm. BP noted to be 200/98 but it since decreased to 166/60 without intervention and allowing for permissive hypertension. Otherwise vital signs stable and labs insignificant. Given aspirin loading dose of 325 mg x 1 and started LR at 110 cc/h. Admitted for further management of ischemic stroke. #CVA, ischemic stroke #Acute infarct of right parietal lobe and caudate nucleus Presented with gait instability upon waking up and reported slurred speech and facial droop in ED. MRI/MRI positive for acute strokes in right parietal lobe and caudate nucleus. CT head negative for hemorrhage, mass effect, midline shift. No history of previous strokes or TIAs but does have family history as noted. Risk factors include age, hypertension as lipid panel, A1c, and TSH all within normal limits. Passed formal speech swallow evaluation. ? Teleneurology consulted ? Aspirin loading dose given in ED (325 mg x 1) and baby aspirin thereafter ? Permissive hypertension (220/120) for first 24 to 48 hours ? LR at 110 cc/h ? Neurology consulted, appreciate recommendations ? Atorvastatin 80 mg p.o. at bedtime ? Aspirin 81 mg p.o. daily ? Follow-up echo with bubble study ? Physical therapy #Hypertension Home nadolol 20 mg p.o. daily and enalapril 20 mg p.o. daily ? Hold home antihypertensives given permissive hypertension for 24 to 48 hours #Gout Home meloxicam 50 mg p.o. daily PRN #Anxiety ? Home clorazepate 7.5 mg p.o. daily as needed PRN Hospital management: Disposition: Telemetry for further management for ischemic stroke Fluids: none Diet: cardiac Lines: Peripheral IV DVT prophylaxis: Heparin SC twice daily GI prophylaxis: Pantoprazole CODE STATUS: full code ----- Plan discussed with attending physician Dr. Bingham and senior resident physician Dr. Lani Aguilar MD PGY-1 Internal Medicine
[2024-11-27 12:00] VITALS: BP 160/73; PULSE 54; PULSE 57; RESP 18; TEMP 36.7; O2SAT 97
--- NOTE | 2024-11-27 14:57 | PC.SS ---
SS rounding note; Possible discharge tomorrow.
--- NOTE | 2024-11-27 15:54 | ECHO_ITS ---
Transthoracic Echo Report Ht (in): 67 Wt (lb): 156 Exam Location: Echo Lab Status: Inpatient Promotions Executive Producer: KASHIF Walsh^^^^ Indications: Procedure Performed: BP: 124 / 72 HR: 63 Technical Quality: Fair MEASUREMENTS (Male / Female) Normal Values 2D ECHO LV Diastolic Diameter PLAX 4.5 cm 4.2 - 5.9 / 3.9 - 5.3 cm LV Systolic Diameter PLAX 3.1 cm IVS Diastolic Thickness 0.9 cm 0.6 - 1.0 / 0.6 - 0.9 cm LVPW Diastolic Thickness 0.8 cm 0.6 - 1.0 / 0.6 - 0.9 cm LV Relative Wall Thickness 0.4 LVOT Diameter 1.8 cm Aortic Root Diameter 3.1 cm LA Systolic Diameter LX 3.1 cm 3.0 - 4.0 / 2.7 - 3.8 cm LV Ejection Fraction MOD BP 59.8 % >= 55 % LV Cardiac Index MOD BP 2091.9 cm?/min?m? LV Ejection Fraction MOD 4C 59.7 % LV Cardiac Index MOD 4C 2438.3 cm?/min?m? LV Ejection Fraction 4C AL 60.6 % LV Cardiac Index 4C AL 2570.1 cm?/min?m? LV Ejection Fraction MOD 2C 61.6 % LV Cardiac Index MOD 2C 1779.8 cm?/min?m? LV Ejection Fraction 2C AL 63.0 % LV Cardiac Index 2C AL 1836.4 cm?/min?m? LA Volume Index 29.8 cm?/m? 16 - 28 cm?/m? Ascending Aorta Diameter 2.7 cm DOPPLER AV Peak Velocity 103.5 cm/s AV Peak Gradient 4.3 mmHg AV Mean Gradient 3.0 mmHg AV Velocity Time Integral 25.6 cm LVOT Peak Velocity 59.9 cm/s LVOT Peak Gradient 1.4 mmHg LVOT Velocity Time Integral 20.8 cm LVOT Cardiac Index 1815.2 cm?/min?m? AV Area Cont Eq vti 2.1 cm? AV Area Cont Eq pk 1.5 cm? MV Area PHT 5.8 cm? MR Peak Velocity 548.5 cm/s MR Peak Gradient 120.3 mmHg Mitral E Point Velocity 63.9 cm/s Mitral A Point Velocity 48.7 cm/s Mitral E to A Ratio 1.3 LV E' Lateral Velocity 8.1 cm/s Mitral E to LV E' Lateral Ratio 7.9 LV E' Septal Velocity 7.2 cm/s Mitral E to LV E' Septal Ratio 8.9 TR Peak Velocity 267.0 cm/s TR Peak Gradient 28.5 mmHg PV Peak Velocity 68.9 cm/s PV Peak Gradient 1.9 mmHg RVOT Peak Velocity 56.9 cm/s FINDINGS Left Ventricle Normal left ventricular size, wall thickness, systolic function with no obvious regional wall motion abnormalities. There is grade II diastolic dysfunction of the left ventricle (pseudonormal filling pattern). The left ventricular ejection fraction is normal, estimated at 55-60%. Right Ventricle The right ventricle is normal in size and systolic function. The estimated right ventricular systolic pressure, 29 mmHg. Left Atrium The left atrium is normal by two-dimensional, color flow and Doppler imaging with no structural abnormalities, no thrombus formation present. Right Atrium The right atrium is normal by two-dimensional imaging, color flow and Doppler imaging with no structural abnormalities, no thrombus formation present. Atrial Septum The interatrial septum is normal to color flow Doppler and agitated saline imaging. Aorta The aorta is normal by two-dimensional, color flow and Doppler interrogation. Mitral Valve Moderate mitral regurgitation. Mild mitral annular calcification. Aortic Valve The aortic valve is trileaflet and normal by two-dimensional, color flow and Doppler interrogation. There is no significant aortic valve regurgitation. Tricuspid Valve There is mild tricuspid valve regurgitation. Pulmonic Valve Trivial pulmonic valve regurgitation. Vessels The pulmonary artery appears normal. The inferior vena cava pulmonary and hepatic veins appear normal. Pericardium The pericardium is normal by two-dimensional imaging. There is no significant pericardial effusion. CONCLUSIONS indication: stroke r/o with Bubble Normal left ventricular size and function. LVEF 55-60% RV appears normal with RVSP 29 mmHg. IAS is normal to color flow Doppler and agitated saline imaging. Negative bubble study Mild MAC mild MR MIld MR Jocelyn Fernando (Electronically Signed) Final Date: 27 November 2024 13:18
[2024-11-27 16:00] VITALS: BP 149/73; PULSE 56; PULSE 65; RESP 19; TEMP 36.1; O2SAT 93
--- NOTE | 2024-11-27 16:42 | PC.PT ---
PT eval only. Patient is I with transfers and ambulation without AD.
[2024-11-27 20:00] VITALS: BP 170/79; PULSE 58; PULSE 86; RESP 19; TEMP 37.1; O2SAT 97
[2024-11-27] MEDS: PANTOPRAZOLE INJ 40 MG VIAL IV (20:45)
[2024-11-27] MEDS: ATORVASTATIN CALCIUM 20 MG TABLET 80 MG PO (20:46)
[2024-11-27] MEDS: hydrOXYzine HCL 25 MG TABLET PO (20:47)
--- NOTE | 2024-11-27 22:34 | PD.NEUROPROG ---
Documentation for date of: 11/27/24 Subjective Subjective Interval history: Patient was seen in telemetry today. No new symptoms/recurrence of similar symptoms after admission. She complained of headache for which she was given 2 Tylenol's x 2 since admission. Exam - Neurology Vital Signs Temp Pulse Resp BP Pulse Ox O2 Del Method O2 Flow Rate 98.8 F 86 19 170/79 H 97 Room Air 3 11/27/24 20:00 11/27/24 20:00 11/27/24 20:00 11/27/24 20:00 11/27/24 20:00 11/27/24 20:00 11/27/24 16:00 Narrative Exam GENERAL APPEARANCE: Well hydrated, well-nourished in no acute distress. HEENT: Normocephalic, atraumatic, extraocular movements intact. Pupils: Equal reacting to light and accommodation NECK: Supple, no JVD or bruits. CARDIOVASULAR: Heart: S1, S2 heard, regular without S3-S4 or murmur no rubs or gallops. LUNGS/CHEST: Clear to auscultation bilaterally. No rails, rhonchi, or wheezing. Normal inspection. ABDOMEN: Soft, nontender, with normal bowel sounds. No pulsatile masses. No rebound, rigidity, or guarding. Normal inspection and palpation. EXTREMITIES: Normal inspection and palpation. No edema, clubbing or cyanosis. SKIN: Warm and dry without rashes. Normal inspection. MUSCULOSKELETAL: No cervical, thoracic, lumbar or midline bony tenderness. Normal inspection. NEURO: Alert, awake and oriented x3. Cranial nerves: II through XII grossly intact. Speech and language: Normal with no dysarthria or dysphasia. Motor system: Tone and bulk: Normal: Strength: 5 out of 5 in all 4 extremities; No pronator drift noted. Deep tendon reflexes: 2+ bilaterally symmetrical. Plantar reflex: Downgoing bilaterally. Sensory system: Intact to all modalities of sensation bilaterally. Coordination: Intact to [id number] and [id number]-[id number]-[id number] test bilaterally. No ataxia, no dysmetria, or dysdiadochokinesia noted. No intention tremors noted. Gait: Normal. Toe, heel, tandem walk all are normal. Romberg: Negative. No signs of meningeal irritation noted. PSYCHIATRIC: Normal mood and affect. Objective Labs 11/28/24 05:00 11/28/24 05:00 Labs: Laboratory Results - last 24 hr 11/27/24 04:57 WBC 11.7 H RBC 4.44 Hgb 13.6 Hct 40.7 MCV 92 MCH 30.6 MCHC 33.4 RDW Std Deviation 42.6 Plt Count 243 D Neut % (Auto) 64 Lymph % (Auto) 26 [place] % (Auto) 8 Eos % (Auto) 2 Baso % (Auto) 0 Neut # (Auto) 7.5 Lymph # (Auto) 3.1 [place] # (Auto) 0.9 H Eos # (Auto) 0.2 Baso # (Auto) 0.0 Immature Gran # (Auto) 0.04 H Absolute Nucleated RBC 0.00 Immature Gran % 0 Nucleated RBC % 0 Sodium 146 H Potassium 3.9 Chloride 108 H Carbon Dioxide 28.8 Anion Gap 9 BUN 13 Creatinine 0.8 Estim Creat Clear Calc 60.9 L eGFR > 60 BUN/Creatinine Ratio 16 Glucose 85 Calculated Osmolality 289 Calcium 9.2 Corrected Calcium 9.2 Phosphorus 3.6 Magnesium 1.8 Total Bilirubin 0.7 AST 19 ALT 12 Alkaline Phosphatase 79 Total Protein 6.0 Albumin 4.0 Globulin 2.0 L Albumin/Globulin Ratio 2.0 Triglycerides 115 Cholesterol 138 LDL Cholesterol, Calc 70 HDL Cholesterol 45 Cholesterol/HDL Ratio 3.1 L TSH 1.98 Assessment & Plan Assessment and plan (1) Acute CVA (cerebrovascular accident): Status: Acute Assessment and plan: Her exam is afocal with no focal motor or sensory or language deficit. MRI brain showed acute infarction in the right parietal and right basal ganglia. Echocardiogram: Normal study, negative bubble study Lipid panel: Within normal range with statin on board Etiology: Chronic small vessel disease Continue with aspirin 81 mg and Plavix for 21 days followed by Plavix alone indefinitely with statin 20 mg as before. Patient is stable for discharge from neurology standpoint and would like to see her back in my office in 2 weeks. She can resume her activities including going for long walks after discharge. (2) Hypertension: Status: Chronic Assessment and plan: Resume her outpatient meds
[2024-11-28] VITALS: BP 146/62; PULSE 56; PULSE 58; RESP 15; TEMP 36.9; O2SAT 95
[2024-11-28 04:00] VITALS: BP 135/62; PULSE 59; RESP 19; TEMP 36.4; O2SAT 94
--- NOTE | 2024-11-28 04:44 | PC.NURSE ---
[facility] downtime occurred on 11/28/24 from 0200 to 0320
[2024-11-28 05:10] VITALS: BMI 24.3
[2024-11-28 05:30] LABS: Basophils % (Auto) 0 % (0-2.5); Eosinophils # (Auto) 0.3 Thou/mm3 (0.0-0.5); Eosinophils % (Auto) 3 % (0-10); Hematocrit 42.2 % (36.0-46.0); Hemoglobin 13.9 g/dL (12.0-16.0); Immature Granulocytes % (Auto) 0 % (0-0); Immature Granulocytes Auto 0.02 Thou/mm3 (0.00-0.00); Lymphocytes # (Auto) 3.4 Thou/mm3 (1.0-4.8); Lymphocytes % (Auto) 37 % (10-50); Mean Corpuscular HGB Conc 32.9 g/dl (31.0-37.0); Mean Corpuscular Hemoglobin 30.3 pg (25.0-35.0); Mean Corpuscular Volume 92 fL (80-100); Monocytes # (Auto) 0.7 Thou/mm3 (0.0-0.8); Monocytes % (Auto) 8 % (0-12); Neutrophils # (Auto) 4.7 Thou/mm3 (1.8-7.7); Neutrophils % (Auto) 52 % (37-80); Nucleated Red Blood Cell % 0 /100 WBC (0); Platelet Count 227 Thou/mm3 (140-440); RDW Standard Deviation 43.1 fL (36.4-46.3); Red Blood Count 4.59 Miln/mm3 (4.00-5.20); White Blood Count 9.1 Thou/mm3 (3.6-11.0)
[2024-11-28 05:54] LABS: Alanine Aminotransferase 10 U/L (10-49); Alkaline Phosphatase 80 U/L (46-116); Anion Gap 7 (7-16); Aspartate Amino Transferase 23 U/L (0-34); BUN/Creatinine Ratio 16 Ratio (12-20); Bilirubin,Total 0.6 mg/dL (0.3-1.2); Blood Urea Nitrogen 14 mg/dL (9-23); Calcium 8.9 mg/dL (8.3-10.6); Calcium (Corrected) 8.9 mg/dL (8.5-10.1); Carbon Dioxide 30.8 mMol/L (20.0-31.0); Chloride 108 mMol/L (98-107); Creatinine (Component) 0.9 mg/dL (0.6-1.3); Estimated Creatinine Clearance 54.1 mL/min (>60); Glucose 92 mg/dL (74-106); Magnesium 1.8 mg/dL (1.6-2.6); Osmolality,Calculated 291 (275-295); Phosphorous 3.6 mg/dL (2.4-5.1); Sodium 146 mMol/L (136-145); eGFR > 60 See Note
[2024-11-28 08:00] VITALS: BP 154/74; PULSE 60; PULSE 69; RESP 17; TEMP 36.8; O2SAT 97
[2024-11-28] MEDS: PANTOPRAZOLE INJ 40 MG VIAL IV (08:21)
[2024-11-28] MEDS: HEPARIN SOD INJ 5000 UNIT/ML VIAL 7500 UNIT SC (08:21)
[2024-11-28] MEDS: ASPIRIN EC 81 MG TABEC PO (08:22)
[2024-11-28] MEDS: FAMOTIDINE 20 MG TABLET PO (08:22)
[2024-11-28] MEDS: CLOPIDOGREL BISULFATE 75 MG TABLET PO (10:51)
[2024-11-28 12:00] VITALS: BP 145/67; PULSE 57; PULSE 58; RESP 50; TEMP 36.8; O2SAT 98
[2024-11-28 12:45] VITALS: BP 153/73; PULSE 69; RESP 15; TEMP 36; O2SAT 96
--- NOTE | 2024-11-28 13:06 | PC.NURSE ---
Patient and spouse verbalized understanding of follow up appts. Dr. Guan called and ok to discharge. Dr. Garibay called about omeprazole, ok to continue at home both pepcid and omeprazole for acid reflux. Educated patient to check bp at home and keep log for primary. Stroke booklet went over and patient and spouse verbalized understanding of signs and symptoms. Educated on risk of blood thinner with falls. Pt has no further questions and feels ready to discharge.
--- NOTE | 2024-11-28 13:42 | ESDS_ITS ---
<Statement entered by Abdirahman Garibay MD - 11/28/24 14:38> I saw and examined the patient, and I agree with current management stated by Dr Lauren MD,PGY1. Plan of care was discussed with the attending physician and resident physician. Disclaimer: Despite multiple revisions, due to the dictation software being used, the document bellow may not be free of grammatical errors including phonetic/typographic errors. However, this does not deter from our commitment to providing health care in the patient's best interest in mind. Dr. Lani MD, PGY 2 Planned Discharge Date 11/28/24 DS: Providers Provider Date of admission: 11/26/24 15:47 Primary care physician: Amarilys Schultz MD Admitting Provider: Annalise Garcia MD Attending Provider on Admission: Regulo Virk DO Consults: 11/26/24 15:52 Consult to Neurology / Tele-Neurology Routine Comment: Stroke Consulting Provider: Sy Guan Referral Physical Therapy Routine Comment: Stroke Physician Instructions: Referral Speech Therapy Routine Comment: Formal speech evaluation s/p stroke Attending Provider on DC: Simón Aguilar MD Discharging Provider: Simón Aguilar MD DS: Diagnosis Problem List Completed Was Problem List Reviewed/Reconciled?: Yes Hospital Course Hospital Course Hospital course: Alla Vick is a 74-year-old female with past medical history of hypertension, gout, and anxiety who presented to the ED on 11/26 for gait instability that started after waking up at 5 AM in the morning. She states that after waking up she tried to walk to the bathroom and had difficulty due to gait instability. Denies paresthesias, vision changes, or headaches. called paramedics around 10 AM and was brought to the ED. In ED, she was told that she had slurred speech and left-sided facial droop that had resolved. Walk to bathroom in ED and states that gait instability improved. Denies prior episodes of gait instability. States that mother and grandmother had hemorrhagic strokes in their 50s and 60s. In ED, MRI/MRA positive for acute infarcts of the right parietal lobe and right caudate nucleus. CT head negative for hemorrhage, mass effect, or midline shift. EKG showed NSR of 61 bpm. BP noted to be 200/98 but it since decreased to 166/60 without intervention and allowing for permissive hypertension. Otherwise vital signs stable and labs insignificant. Given aspirin loading dose of 325 mg x 1 and started LR at 110 cc/h. Admitted for further management of ischemic stroke. During hospital stay, patient did not experience any recurrent episodes of gait instability, slurred speech, or facial droop. Blood pressure improved without intervention, otherwise vital signs stable. Work-up showed A1c 5.4%, lipid panel within normal limits (has home prescription of atorvastatin 20 mg PO HS), and TSH within normal limits. Echo within normal limits. Neurology saw patient and recommended aspirin 81 mg and plavix for 21 days and then plavix indefinitely as well as continuing home atorvastatin 20 mg and follow-up with neurology in 2 weeks. From neurology perspective, she is stable for discharge. Again, VSS and labs have been unremarkable since admission and thus deemed stable for discharge. Diagnoses during admission: #CVA, ischemic stroke #Acute infarct of right parietal lobe and caudate nucleus #Hypertension #Hypertensive urgency #Gout #Anxiety Discharge instructions: - Take aspirin 81 mg once daily for 21 days and then stop - Take plavix/clopidogrel 75 mg once daily indefinitely - Take atorvastatin 20 mg once daily - Stop taking omeprazole 40 mg once daily - Continue taking all other home medications as prescribed - Follow-up with neurologist, Dr. Guan, outpatient within 2 weeks of discharge - Follow-up with PCP within 1 week of discharge - Return to ED if symptoms worsen or recur Time Spent with Patient Time attestation: Total time spent providing and/or coordinating discharge services: Quality: Stroke Pt Provided Written Stroke Discharge Instructions: Yes Exam Vital Signs Temp Pulse Resp BP Pulse Ox O2 Del Method O2 Flow Rate 96.8 F 69 15 153/73 H 96 Room Air 3 11/28/24 12:45 11/28/24 12:45 11/28/24 12:45 11/28/24 12:45 11/28/24 12:45 11/28/24 12:45 11/27/24 16:00 Narrative Exam General: AOx3, no acute distress, able to speak full sentences HEENT: NC/AT, mucous membranes moist, bilateral sclera anicteric Cardiovascular: regular rate and rhythm, S1/S2 present, no murmurs appreciated Pulmonary: clear to auscultation bilaterally, no rales/rhonchi/wheezes Abdominal: soft, non-tender, non-distended, no rebound/guarding, normal bowel sounds present Musculoskeletal: normal ROM, no peripheral edema Skin: warm and dry, intact, no rashes Neuro: CN II-XII intact, no focal deficits Discharge Plan Plan Patient Disposition: HOME (Self Care) Care Plan Goals: - Take aspirin 81 mg once daily for 21 days and then stop - Take plavix/clopidogrel 75 mg once daily indefinitely - Take atorvastatin 20 mg once daily - Stop taking omeprazole 40 mg once daily - Continue taking all other home medications as prescribed - Follow-up with neurologist, Dr. Guan, outpatient within 2 weeks of discharge - Follow-up with PCP within 1 week of discharge - Return to ED if symptoms worsen or recur Prescriptions/Referrals Prescriptions/Med Rec: New aspirin [Ecotrin Low Strength] 81 mg Tablet,Delayed Release (Dr/Ec) 81 mg PO QDAY 21 Days Qty: 21 0RF clopidogrel [Plavix] 75 mg tablet 75 mg PO QDAY Qty: 90 0RF omeprazole 40 mg capsule,delayed release(DR/EC) 40 mg PO QDAY Qty: 30 0RF Continued enalapril maleate 20 mg Tablet 20 mg PO QDAY meloxicam 15 mg Tablet 15 mg PO QDAY nadolol 20 mg Tablet 20 mg PO QDAY famotidine 20 mg tablet 20 mg PO BID Patient Comments: TAKE 1 TABLET BY MOUTH TWICE A DAY FOR 90 DAYS clorazepate dipotassium 7.5 mg tablet 7.5 mg PO DAILY PRN (Reason: Anxiety) Patient Comments: TAKE 1 TABLET BY MOUTH EVERY DAY FOR 90 DAYS Changed atorvastatin 20 mg tablet 20 mg PO HS Qty: 90 0RF Patient Comments: TAKE 1 TABLET BY MOUTH EVERY DAY Discontinued omeprazole 40 mg Capsule,Delayed Release(Dr/Ec) 40 mg PO .COMPLEX Rx Instructions: 40 mg orally QD 30 MIN BEFORE BREAKFAST; Referrals: Amarilys Schultz MD [Primary Care Provider] - Sy Guan MD [Physician] - Patient/Caregiver Discharge Instructions Education Materials: Using Blood Thinners Anticoagulants, Controlling High Blood Pressure, Discharge Instructions for Stroke, Heart Disease Women, Risk Factors for Stroke, Blood Pressure Check Steps Print Language: Faroese Stand Alone Forms: Naty Award Info., Patient Portal Info Letter Discharge Order Discharge Orders: Discharge (Routine); Ordered 11/28/24 Ordered By: Abdirahman Garibay Quality Discharge Quality Measures VTE prophylaxis Attestestation Attestation I have discussed and was present for the essential components of the discharge history, physical examination, diagnosis, and discharge treatment plan with the resident. I agree with the patient's discharge care as documented by the resident and amended herein by me. Chaim Virk, DO. The patient understood all discharge instructions, all questions were answered satisfactorily. The patient was instructed to return to the Emergency Department is symptoms worsened or persisted. Patient was stable, afebrile, tolerating p.o. intake and ambulatory at time of discharge home. Patient will be on a course of aspirin and Plavix for 21 days, then Plavix indefinitely thereafter. Patient will also continue on atorvastatin 20 mg nightly. All questions answered satisfactorily. See resident note above for additional details. Although this document has been carefully reviewed, there may still be some ph onetic and other typographical errors. These errors are purely grammatical due to imperfections in the software program and should not be construed in any way to compromise the substance of the patient's medical care during this visit.
--- NOTE | 2024-11-28 23:11 | PD.VPROG1 ---
Telemedicine visit statement This visit was conducted with the use of phone was obtained on 11/28/24. Documentation for date of: 11/28/24 Subjective Subjective Interval history: Patient is in telemetry. No new symptoms or recurrence of similar episodes after admission. Virtual exam Vital Signs Temp Pulse Resp BP Pulse Ox O2 Del Method O2 Flow Rate 96.8 F 69 15 153/73 H 96 Room Air 3 11/28/24 12:45 11/28/24 12:45 11/28/24 12:45 11/28/24 12:45 11/28/24 12:45 11/28/24 12:45 11/27/24 16:00 Objective Labs 11/28/24 05:00 11/28/24 05:00 Labs: Laboratory Results - last 24 hr 11/28/24 05:00 WBC 9.1 RBC 4.59 Hgb 13.9 Hct 42.2 MCV 92 MCH 30.3 MCHC 32.9 RDW Std Deviation 43.1 Plt Count 227 Neut % (Auto) 52 Lymph % (Auto) 37 [place] % (Auto) 8 Eos % (Auto) 3 Baso % (Auto) 0 Neut # (Auto) 4.7 Lymph # (Auto) 3.4 [place] # (Auto) 0.7 Eos # (Auto) 0.3 Baso # (Auto) 0.0 Immature Gran # (Auto) 0.02 H Absolute Nucleated RBC 0.00 Immature Gran % 0 Nucleated RBC % 0 Sodium 146 H Potassium 4.0 Chloride 108 H Carbon Dioxide 30.8 Anion Gap 7 BUN 14 Creatinine 0.9 Estim Creat Clear Calc 54.1 L eGFR > 60 BUN/Creatinine Ratio 16 Glucose 92 Calculated Osmolality 291 Calcium 8.9 Corrected Calcium 8.9 Phosphorus 3.6 Magnesium 1.8 Total Bilirubin 0.6 AST 23 ALT 10 Alkaline Phosphatase 80 Total Protein 6.0 Albumin 4.0 Globulin 2.0 L Albumin/Globulin Ratio 2.0 Assessment & Plan Problem List (1) Acute CVA (cerebrovascular accident): Status: Acute Assessment and plan: No residual deficit noted. Patient is advised to continue with aspirin, Plavix along with statin. Stable for discharge home and I will see her back in 2 weeks. (2) Hypertension: Status: Chronic Assessment and plan: Continue with her home meds
== END 2024-11-28 13:00 | disposition home or self-care (01) | DRG 65 ==
LOC: SERX 16:25 → SERHOLD 16:30 → S2NX 20:40
PROVIDERS: Student in an Organized Health Care Education/Training Program; Admitting Provider Internal Medicine; Emergency Provider Emergency Medicine; PCP Family Medicine; Visit Provider Student in an Organized Health Care Education/Training Program
DX: I63.89 Other cerebral infarction (principal); G93.49 Other encephalopathy; I10 Essential (primary) hypertension; M10.9 Gout, unspecified; F41.9 Anxiety disorder, unspecified; R47.81 Slurred speech; R29.810 Facial weakness; R26.2 Difficulty in walking, not elsewhere classified; R29.702 NIHSS score 2; I16.0 Hypertensive urgency; Z79.899 Other long term (current) drug therapy; Z79.82 Long term (current) use of aspirin
CPT/HCPCS: 36415; 70450; 70544; 71045; 80048; 80053; 80061; 83036; 83735; 84100; 84443; 85025; 92610; 93005; 93306; 96374; 99285; J1200; J1643; J2470; J7120; A9270

== ENCOUNTER → 2025-01-28 | Outpatient (CLI) | payer MEDICARE, SELFPAY ==
--- NOTE | 2025-01-28 10:00 | XR_ITS ---
EXAMINATION: Cervical spine, 5 views Technique: Cervical spine AP, AP odontoid, lateral, bilateral obliques, 5 views Exam date and time: January 28, 2025 1033 hours INDICATIONS: Neck pain beginning 3 months ago. FINDINGS: Satisfactory alignment cervical vertebral bodies No cervical fracture Prominent osteopenia Moderate degenerative disc disease C5-C6 Mild cervical spondylosis IMPRESSION: Moderate degenerative disc disease C5-C6.
== END | disposition home or self-care (01) ==
PROVIDERS: PCP Family Medicine; Referring Provider Family Medicine; Visit Provider Family Medicine
DX: M50.322 Other cervical disc degeneration at C5-C6 level (principal)
CPT/HCPCS: 72050

== ENCOUNTER 2025-02-28 11:01 | Emergency (ER) | payer MEDICARE, SELFPAY ==
--- NOTE | 2025-02-28 | XR_ITS ---
Examinations: MRI Brain without intravenous contrast. MRA brain without intravenous contrast. 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 The optic chiasm and infundibular stalk are not remarkable. Prepontine and interpeduncular cisterns are not enlarged. No localized enlargement of the medulla or kyaw. Fourth ventricle and cerebellar tonsils normal in position. Subacute hemorrhage is not seen. Fourth ventricle is midline. Mass in the cerebellopontine angle region is not evident. 7th and 8th nerve complexes exhibits symmetry. Globes are symmetrical with no retro-orbital mass. Increased white matter signal moderate Diffusion-weighted images demonstrate several foci restricted diffusion in the right basal ganglia, axial image 13 and posterior right parietal lobe axial diffusion image 14 but no accompanying signal deficit on the ADC map Mass-effect upon the ventricular system is not identified. MRA carotid images no significant carotid stenoses. MRA brain images no cerebral large vessel arterial occlusions Impression: Subtle foci of restricted diffusion in the right basal ganglia and right parietal lobe but no matching signal deficit on the ADC map, recommend neurology consultation and correlation with clinical findings
[2025-02-28 11:11] VITALS: PULSE 52; RESP 18; O2SAT 97; BMI 23.5
--- NOTE | 2025-02-28 11:17 | PD.EDADULT ---
ED General RME/HPI General Chief complaint: Weakness Stated complaint: WEAKNESS Time Seen by Provider: 02/28/25 11:05 Arrival date/time: 02/28/25 11:01 RME / HPI RME / HPI narrative: DR. PRABHAKAR MAIN ED EVALUATION: 74 year old female presents to the Emergency Department [facility] with complaint of generalized weakness. Patient was at a nail salon when she started feeling more weak; she states she woke up this morning already feeling weak but it got worse when she was at the nail salon. Her last well known time was when she went to sleep, at 1230 AM today. Per EMS, BP was 168/100, HR of 64, satting at 98%, and blood glucose is 119. She states that last night she became anxious after checking her blood pressure and it was high, systolic 179 at 930 PM; she states that she normally checks her blood pressure daily. Patient denies any dizziness, she states she has more so generalized weakness and light-headedness like she is tired . No headache, no one-sided weakness, no dizziness. No nausea or vomiting. No other symptoms reported at this time. PMHx: Mini strokes, hypertension, gout, hyperlipidemia, anxiety, and arthritis. Social Hx: No tobacco, alcohol, or substance use. Related Data Home Medications ?Medication ?Instructions ?Recorded ?Confirmed enalapril maleate 20 mg tablet 20 mg PO QDAY 11/24/18 11/26/24 nadolol 20 mg tablet 20 mg PO QDAY 11/24/18 02/28/25 clorazepate dipotassium 7.5 mg 7.5 mg PO DAILY PRN Anxiety 10/26/23 02/28/25 tablet famotidine 20 mg tablet 20 mg PO BID 10/26/23 02/28/25 atorvastatin 40 mg tablet mg 02/28/25 Previous Rx's ?Medication ?Instructions ?Recorded atorvastatin 20 mg tablet 20 mg PO HS #90 tabs 11/28/24 clopidogrel 75 mg tablet (Plavix) 75 mg PO QDAY #90 tabs 11/28/24 Allergies Allergy/AdvReac Type Severity Reaction Status Date / Time shellfish derived Allergy Severe Hives Verified 11/26/24 11:21 Sulfa (Sulfonamide Allergy Severe Hives Verified 11/26/24 11:21 Antibiotics) Review of Systems Review of Systems Systems Reviewed: All systems reviewed, normal except as documented Past Medical History Past Medical History NEUROLOGIC: Positive Neurological Disorders and Migraine CARDIAC: Positive Cardiac Disorders, Hypercholesterolemia, Hypertension and Hypotension RESPIRATORY: Positive Pneumonia GASTROINTESTINAL: Positive Gastrointestinal Disorders, Ulcer and Gastroesophageal Reflux Disease GENITOURINARY: Positive Kidney Stones REPRODUCTIVE: Positive Previous Pregnancies (x1) MUSCULOSKELETAL: Positive Musculoskeletal Disorders, Arthritis, Gout and Fractures (RIGHT ELBOW FX IN 08/2023. NO TREATMENT. ORTHO CONSULT THIS WEEK) PSYCHO/SOCIAL: Positive Anxiety OTHER HISTORY: Positive Falls (SLIPPED IN AUGUST 2023), Chicken Pox, Measles and Mumps Family History FAMILY HISTORY: Positive Family Cardiac Disorders (mother, father- hypertension) Surgical History SURGICAL: Positive Nose Surgery (SKIN BIOPSY), Abdominal Surgery and Tubal Ligation Social History SMOKING STATUS: Never smoker SUBSTANCE USE: does not use ALCOHOL: Never ED Exam Narrative Physical exam: GENERAL APPEARANCE: AxOx4, generally well-appearing, no acute distress. HEENT: NC, AT. MMM. EOMI, clear conjunctiva, oropharynx clear. NECK: Supple without lymphadenopathy. No stiffness or restricted ROM. HEART: Normal rate and regular rhythm, normal S1/S1, no m/r/g LUNGS: CTAB, moving air well. No crackles or wheezes are heard. ABDOMEN: Soft, nontender, nondistended with good bowel sounds heard. BACK: No midline C/T/L spine pain or deformity, No CVAT, no obvious deformity. EXTREMITIES: Without cyanosis, clubbing or edema. MUSCULOSKELETAL: FROM of all major joints, no chest tenderness NEUROLOGICAL: Grossly nonfocal. Alert and oriented, moving all 4 extremities. CN not formally tested but appear grossly intact. Observed to ambulate with normal gait. Skin: Warm and dry without any rash. Course Quality Measures none Orders Category Date Time Status MRI Screening NOW Care 02/28/25 11:[address] head/brain wo con Stat Exams 02/28/25 11:17 Completed MR stroke protocol Stat Exams 02/28/25 Completed Alcohol, Urine Stat Lab 02/28/25 13:42 Completed CBC Stat Lab 02/28/25 12:02 Completed CMP [Comprehensive Metabolic Panel] Stat Lab 02/28/25 12:02 Completed Drug Screen,Urine Stat Lab 02/28/25 13:42 Completed Partial Thromboplastin Time Stat Lab 02/28/25 13:00 Completed Prothrombin Time with INR Stat Lab 02/28/25 13:00 Completed Troponin I Stat Lab 02/28/25 12:02 Completed Urinalysis Stat Lab 02/28/25 13:42 Completed LORazepam [Ativan Inj] Med 02/28/25 15:31 Discontinued 2 mg IVP X1 ONE Vital Signs Vital signs: Vital Signs Temperature 98 F 02/28/25 11:23 Pulse Rate 53 L 02/28/25 11:23 Respiratory Rate 16 02/28/25 11:23 Blood Pressure 153/63 H 02/28/25 11:23 Pulse Oximetry (%) 97 02/28/25 11:23 Oxygen Delivery Method Room Air 02/28/25 11:23 Discharge Plan Plan Patient Disposition: HOME (Self Care) Prescriptions/Referrals Prescriptions/Med Rec: No Action enalapril maleate 20 mg Tablet 20 mg PO QDAY nadolol 20 mg Tablet 20 mg PO QDAY clopidogrel [Plavix] 75 mg tablet 75 mg PO QDAY Qty: 90 0RF atorvastatin 20 mg tablet 20 mg PO HS Qty: 90 0RF Patient Comments: TAKE 1 TABLET BY MOUTH EVERY DAY atorvastatin 40 mg tablet famotidine 20 mg tablet 20 mg PO BID Patient Comments: TAKE 1 TABLET BY MOUTH TWICE A DAY FOR 90 DAYS clorazepate dipotassium 7.5 mg tablet 7.5 mg PO DAILY PRN (Reason: Anxiety) Patient Comments: TAKE 1 TABLET BY MOUTH EVERY DAY FOR 90 DAYS Referrals: Aguila Schultz MD [Primary Care Provider] - In 1 week Problem List Clinical Impression: Dizziness Patient/Caregiver Discharge Instructions Education Materials: ED Dizziness, Uncertain Cause Additional Instructions: Follow-up with your primary care doctor in 1 week for recheck. You can return to the emergency department sooner if symptoms worsen or if you notice any new, concerning issues. Here Print Language: Georgian Stand Alone Forms: Naty Award Info., Patient Portal Info Letter MDM Narrative [facility] hospital course: I, Adelita Mendoza am scribing for and in the presence of Dr. Prabhakar. Clinical Information Provided by patient and EMS Medical Records Reviewed [facility] and EMS Meds/Rx Considered, not Ordered None Labs/Rad/Tests considered, not Ordered None Chronic Illness/Social Conditions Add or document further as needed: Mini strokes, hypertension, gout, hyperlipidemia, anxiety, and arthritis. EKG Interpretation EKG #1: Date/time of EK02/28/25 1107 hours EKG interpretation: sinus bradycardia, rate 53, normal intervals, normal axis, no acute ST-T wave changes. Imaging Imaging interpretation: interpreted by me Provider imaging interpretation(s): My interpretation: no acute findings on CT and will order an MRI Radiology reports / interpretation(s): Procedure(s): CT head/brain wo con Accession Number(s): [id number] cc: Nader Prabhakar MD; Rj Castillo MD~ Examination: CT brain head without contrast. 2-D sagittal coronal reconstructions Date and time of exam:February 28, 2025 1145 hours Comparison November 26, 2024 INDICATIONS: Onset ataxia weakness today CTDI: vol (mGy):45.4 DLP: (mGycm):895 Technique: Multiple CT axial sections of the brain have been obtained, 5 mm slice thickness. Contrast has not been administered. 2-D sagittal, coronal reconstructions have been obtained Low dose protocols were performed. One or more of the following dose reduction techniques were used; automated exposure control, adjustment of the mA and/or KV according to patient size, use of iterative reconstruction technique. Findings: No significant ventricular enlargement. Small old appearing infarct in the right basal ganglia Intra-axial or extra-axial hemorrhage density is not seen. No mass effect or midline shift Basal cisterns are not remarkable. Fourth ventricle is midline. Cranial vault intact. Impression: Negative for acute hemorrhage, mass effect or midline shift Small old appearing infarct in the right basal ganglia, but clinical correlation advised Consider brain MRI follow-up, stroke protocol Dictated By: Rj Castillo MD Procedure(s): MR stroke protocol Accession Number(s): [id number] cc: Nader Prabhakar MD; Rj Castillo MD; Aguila Schultz MD~ Examinations: MRI Brain without intravenous contrast. MRA brain without intravenous contrast. 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 The optic chiasm and infundibular stalk are not remarkable. Prepontine and interpeduncular cisterns are not enlarged. No localized enlargement of the medulla or kyaw. Fourth ventricle and cerebellar tonsils normal in position. Subacute hemorrhage is not seen. Fourth ventricle is midline. Mass in the cerebellopontine angle region is not evident. 7th and 8th nerve complexes exhibits symmetry. Globes are symmetrical with no retro-orbital mass. Increased white matter signal moderate Diffusion-weighted images demonstrate several foci restricted diffusion in the right basal ganglia, axial image 13 and posterior right parietal lobe axial diffusion image 14 but no accompanying signal deficit on the ADC map Mass-effect upon the ventricular system is not identified. MRA carotid images no significant carotid stenoses. MRA brain images no cerebral large vessel arterial occlusions Impression: Subtle foci of restricted diffusion in the right basal ganglia and right parietal lobe but no matching signal deficit on the ADC map, recommend neurology consultation and correlation with clinical findings Dictated By: Rj Castillo MD Medication Administration(s) Medication Administration History Discontinued Medications Lorazepam (Lorazepam 2 Mg/Ml Vial) 2 mg IVP X1 ONE Stop: 02/28/25 15:32 Last Admin: 02/28/25 15:36 Dose: 2 mg Documented By: JANE Diagnosis Differential diagnosis: CVA, TIA, brain bleed Most likely dx, and/or detailed dx discussion: Dizziness Dispositon Disposition: Discharge Home
[2025-02-28 11:23] VITALS: BP 153/63; PULSE 53; RESP 16; TEMP 36.6; O2SAT 97
[2025-02-28 12:22] LABS: Basophils # (Auto) 0.1 Thou/mm3 (0.0-0.2); Basophils % (Auto) 0 % (0-2.5); Eosinophils # (Auto) 0.3 Thou/mm3 (0.0-0.5); Eosinophils % (Auto) 2 % (0-10); Hemoglobin 15.2 g/dL (12.0-16.0); Immature Granulocytes % (Auto) 1 % (0-0); Immature Granulocytes Auto 0.06 Thou/mm3 (0.00-0.00); Lymphocytes % (Auto) 23 % (10-50); Mean Corpuscular HGB Conc 35.3 g/dl (31.0-37.0); Mean Corpuscular Hemoglobin 31.1 pg (25.0-35.0); Mean Corpuscular Volume 88 fL (80-100); Monocytes # (Auto) 1.2 Thou/mm3 (0.0-0.8); Monocytes % (Auto) 9 % (0-12); Neutrophils # (Auto) 8.3 Thou/mm3 (1.8-7.7); Neutrophils % (Auto) 65 % (37-80); Nucleated Red Blood Cell % 0 /100 WBC (0); Platelet Count 445 Thou/mm3 (140-440); RDW Standard Deviation 41.1 fL (36.4-46.3); Red Blood Count 4.89 Miln/mm3 (4.00-5.20); White Blood Count 12.9 Thou/mm3 (3.6-11.0)
[2025-02-28 12:38] LABS: Alanine Aminotransferase 16 U/L (10-49); Albumin, Serum 4.7 gm/dL (3.4-4.8); Albumin/Globulin Ratio 2.2 (1.2-2.2); Alkaline Phosphatase 92 U/L (46-116); Anion Gap 15 (7-16); Aspartate Amino Transferase 20 U/L (0-34); BUN/Creatinine Ratio 21 Ratio (12-20); Bilirubin,Total 0.5 mg/dL (0.3-1.2); Blood Urea Nitrogen 23 mg/dL (9-23); Calcium 8.9 mg/dL (8.3-10.6); Calcium (Corrected) 8.9 mg/dL (8.5-10.1); Carbon Dioxide 24.4 mMol/L (20.0-31.0); Chloride 107 mMol/L (98-107); Creatinine (Component) 1.1 mg/dL (0.6-1.3); Estimated Creatinine Clearance 44.3 mL/min (>60); Globulin 2.1 gm/dL (2.3-3.5); Glucose 102 mg/dL (74-106); Osmolality,Calculated 294 (275-295); Potassium 4.2 mMol/L (3.4-5.1); Sodium 146 mMol/L (136-145); Total Protein 6.8 gm/dL (5.7-8.2); Troponin I < 0.002 ng/mL (0.0-0.045); eGFR 53 See Note
[2025-02-28 13:20] LABS: Partial Thromboplastin Time 21.2 Seconds (22.0-36.0); Prothrombin Time 11.3 Seconds (9.0-12.2)
[2025-02-28 14:13] LABS: Bacteria,Urine Rare; Bilirubin,Urine Negative (Negative); Blood,Urine Trace (Negative); Clarity,Urine Clear (Clear/Hazy); Collection Type, Urine Clean Catch; Color,Urine Lt-Yellow (Lt Yel-Yel); Glucose, Urine Negative (Negative); Hyaline Casts,Urine < 1 /hpf (0-1); Ketones,Urine Negative (Negative); Leukocyte Esterase,Urine Positive (Negative); Nitrite,Urine Negative (Negative); Protein,Urine 1+ (Neg - Trace); RBC,Urine 4 /hpf (0-3); Specific Gravity,Urine 1.022 (1.001-1.035); Squamous Epithelial Cell,Urine 1 /hpf (0-5); Urobilinogen,Urine Negative mg/dL (0.0-1.0); WBC,Urine 2 /hpf (0-5)
[2025-02-28 14:27] LABS: Alcohol, Urine Negative (Negative); Amphetamine/Methamp Scrn,U Negative (Negative); Barbiturate Screen,Urine Negative (Negative); Benzodiazepines Screen,Urine Positive (Negative); Benzoylecgonine Screen, Ur Negative (Negative); Fentanyl Screen,Urine Negative (Negative); Opiate Screen,Urine Negative (Negative); THC Screen,Urine Negative (Negative)
[2025-02-28 15:21] VITALS: BP 197/68; PULSE 53; RESP 18; TEMP 36.6; O2SAT 99
[2025-02-28] MEDS: LORazepam 2 MG/ML VIAL IVP (15:36)
--- NOTE | 2025-02-28 15:41 | PC.NURSE ---
PATIENT TAKEN TO MRI.
[2025-02-28 18:25] VITALS: BP 199/76; PULSE 59; RESP 18; TEMP 36.7; O2SAT 99
[2025-02-28 18:34] VITALS: BP 197/72; PULSE 61; RESP 16; O2SAT 100
== END 2025-02-28 18:37 | disposition home or self-care (01) ==
PROVIDERS: Emergency Provider Emergency Medicine; PCP Family Medicine
DX: R42 Dizziness and giddiness (principal); Z86.73 Personal history of transient ischemic attack (TIA), and cerebral infarction without residual deficits; R53.1 Weakness; E78.5 Hyperlipidemia, unspecified; I10 Essential (primary) hypertension
CPT/HCPCS: 36415; 70450; 70544; 80053; 80307; 80320; 81001; 84484; 85025; 85610; 85730; 96374; 99285; J2060; G0480

== ENCOUNTER → 2025-06-14 | Outpatient (CLI) | payer MEDICARE, SELFPAY ==
[2025-06-14 08:49] LABS: Basophils # (Auto) 0.0 Thou/mm3 (0.0-0.2); Basophils % (Auto) 0 % (0-2.5); Eosinophils # (Auto) 0.1 Thou/mm3 (0.0-0.5); Eosinophils % (Auto) 2 % (0-10); Hematocrit 44.1 % (36.0-46.0); Hemoglobin 14.6 g/dL (12.0-16.0); Immature Granulocytes Auto 0.02 Thou/mm3 (0.00-0.00); Lymphocytes # (Auto) 2.6 Thou/mm3 (1.0-4.8); Lymphocytes % (Auto) 32 % (10-50); Mean Corpuscular HGB Conc 33.1 g/dl (31.0-37.0); Mean Corpuscular Hemoglobin 30.6 pg (25.0-35.0); Mean Corpuscular Volume 93 fL (80-100); Monocytes # (Auto) 0.7 Thou/mm3 (0.0-0.8); Monocytes % (Auto) 8 % (0-12); Neutrophils # (Auto) 4.8 Thou/mm3 (1.8-7.7); Neutrophils % (Auto) 58 % (37-80); Nucleated Red Blood Cell # 0.00 Thou/mm3 (0.00-0.00); Nucleated Red Blood Cell % 0 /100 WBC (0); Platelet Count 326 Thou/mm3 (140-440); RDW Standard Deviation 46.4 fL (36.4-46.3); Red Blood Count 4.77 Miln/mm3 (4.00-5.20); White Blood Count 8.3 Thou/mm3 (3.6-11.0)
[2025-06-14 09:15] LABS: Alanine Aminotransferase 12 U/L (10-49); Albumin, Serum 4.6 gm/dL (3.4-4.8); Albumin/Globulin Ratio 2.3 (1.2-2.2); Alkaline Phosphatase 86 U/L (46-116); Anion Gap 10 (7-16); Aspartate Amino Transferase 19 U/L (0-34); BUN/Creatinine Ratio 21 Ratio (12-20); Bilirubin,Direct 0.2 mg/dL (0.0-0.3); Bilirubin,Total 0.7 mg/dL (0.3-1.2); Blood Urea Nitrogen 21 mg/dL (9-23); Calcium 9.6 mg/dL (8.3-10.6); Calcium (Corrected) 9.6 mg/dL (8.5-10.1); Carbon Dioxide 28.6 mMol/L (20.0-31.0); Cardiac Risk Estimate 2.5 RATIO (3.7-5.6); Chloride 105 mMol/L (98-107); Cholesterol 130 mg/dL (132-200); Creatinine (Component) 1.0 mg/dL (0.6-1.3); Free T4 (Free Thyroxine) 1.54 ng/dL (0.89-1.76); Globulin 2.0 gm/dL (2.3-3.5); Glucose 101 mg/dL (74-106); HDL Cholesterol 52 mg/dL (40-60); LDL Cholesterol,Calculated 63 mg/dL (0-130); Osmolality,Calculated 289 (275-295); Potassium 4.0 mMol/L (3.4-5.1); Sodium 144 mMol/L (136-145); Thyroid Stimulating Hormone 1.85 uIU/mL (0.55-4.78); Total Protein 6.6 gm/dL (5.7-8.2); Triglycerides 75 mg/dL (30-150); Uric Acid 5.6 mg/dL (3.1-7.8); eGFR 59 See Note
== END | disposition home or self-care (01) ==
LOC: COPL 08:02
PROVIDERS: PCP Family Medicine; Referring Provider Family Medicine; Visit Provider Internal Medicine Cardiovascular Disease
DX: I10 Essential (primary) hypertension (principal); E78.5 Hyperlipidemia, unspecified; I63.9 Cerebral infarction, unspecified; M10.071 Idiopathic gout, right ankle and foot; R53.1 Weakness
CPT/HCPCS: 36415; 80053; 80061; 80076; 82248; 84439; 84443; 84550; 85025

== ENCOUNTER 2025-07-15 17:16 | Emergency (ER) | payer MEDICARE, SELFPAY ==
[2025-07-15] VITALS (12 sets, daily range): BP systolic 165–192; BP diastolic 60–67; PULSE 58–520; RESP 14–97; TEMP 36.6; O2SAT 97–99; BMI 24.3
--- NOTE | 2025-07-15 17:18 | XR_ITS ---
Examination: CT brain head without contrast. 2-D sagittal coronal reconstructions Date and time of exam: July 15, 2025, 1725 hours COMPARISON: February 28, 2025 INDICATIONS: Stroke alert, onset focal neurologic deficit CTDI: vol (mGy): 47.5 DLP: (mGycm): 947 Technique: Multiple CT axial sections of the brain have been obtained, 5 mm slice thickness. Contrast has not been administered. 2-D sagittal, coronal reconstructions have been obtained Low dose protocols were performed. One or more of the following dose reduction techniques were used; automated exposure control, adjustment of the mA and/or KV according to patient size, use of iterative reconstruction technique. Findings: No significant ventricular enlargement. Intra-axial or extra-axial hemorrhage density is not seen. No mass effect or midline shift Basal cisterns are not remarkable. Fourth ventricle is midline. Cranial vault intact. Impression: No interval acute hemorrhage, mass effect or midline shift
--- NOTE | 2025-07-15 17:18 | EKG_ITS ---
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
--- NOTE | 2025-07-15 17:18 | XR_ITS ---
EXAMINATION: AP chest single view TECHNIQUE: 1. AP portable upright chest single view Date and time: July 15, 2025, 1818 hours, comparison November 26, 2024 INDICATIONS: Stroke alert today FINDINGS: Normal heart size. No aspiration pneumonia. Prominent osteopenia IMPRESSION: Negative for aspiration pneumonia
--- NOTE | 2025-07-15 17:18 | XR_ITS ---
Examination: CTA carotids with intravenous contrast CTA brain, head with intravenous contrast. 2-D sagittal, coronal reconstructions. 3-D reconstructions. Exam date and time: July 15, 2025, 1739 hours INDICATIONS: Stroke alert, onset left-sided body weakness today CTDI: vol (mGy) 20.9 DLP: (mGycm) 420 Technique: Multiple CTA axial brain, head carotid images post intravenous contrast injection 75 cc, [id number]. 2-D sagittal, coronal reconstructions. 3-D reconstructions, 3-D post processing including vascular maximum intensity projection images. Low dose protocols were performed. One or more of the following dose reduction techniques were used; automated exposure control, adjustment of the mA and/or KV according to patient size, use of iterative reconstruction technique. 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
--- NOTE | 2025-07-15 17:18 | PD.EDNEURO ---
Neuro Symptoms Deficit-RME/HPI General Chief Complaint: Neuro Symptoms/Deficit Stated Complaint: STROKE Time Seen by Provider: 07/15/25 17:17 Source: patient and EMS Arrival date/time: 07/15/25 17:16 Mode of arrival: EMS Limitations: language barrier and altered mental status RME / HPI RME / HPI Narrative: Patient is a 75-year-old female is in the Emergency Department concerns for left-sided weakness and aphasia. Last known well was approximately 1 hour prior to arrival. Patient was sitting with her when her noticed that she sat speaking and stop moving the left side of her body and had left-sided facial droop. Patient is unable to speak on initial evaluation. Unable to move her left upper nor her left lower extremity. Patient has a history of hypertension, prior strokes without any residual deficits. Patient is allergic to shellfish and sulfa. No other allergies. No drugs alcohol no smoking. Patient takes clopidogrel however no blood thinners. Related Data Home Medications ?Medication ?Instructions ?Recorded ?Confirmed enalapril maleate 20 mg tablet 20 mg PO QDAY 11/24/18 11/26/24 nadolol 20 mg tablet 20 mg PO QDAY 11/24/18 02/28/25 clorazepate dipotassium 7.5 mg 7.5 mg PO DAILY PRN Anxiety 10/26/23 02/28/25 tablet famotidine 20 mg tablet 20 mg PO BID 10/26/23 02/28/25 atorvastatin 40 mg tablet mg 02/28/25 Previous Rx's ?Medication ?Instructions ?Recorded atorvastatin 20 mg tablet 20 mg PO HS #90 tabs 11/28/24 clopidogrel 75 mg tablet (Plavix) 75 mg PO QDAY #90 tabs 11/28/24 Allergies Allergy/AdvReac Type Severity Reaction Status Date / Time shellfish derived Allergy Severe Hives Verified 07/15/25 17:26 Sulfa (Sulfonamide Allergy Severe Hives Verified 07/15/25 17:26 Antibiotics) ED Exam General Limitations: Present language barrier and altered mental status Head Head exam: Present atraumatic and normocephalic Eye Eye exam: Present other (Left-sided facial droop) ENT ENT exam: Present mucous membranes moist Neck Neck exam: Present normal inspection Chest Chest inspection: Present normal inspection and symmetric chest wall rise Respiratory Respiratory exam: Present normal lung sounds bilaterally; Absent respiratory distress Cardiovascular Cardiovascular exam: Present regular rate and normal rhythm Abdominal Exam Abdominal exam: Present soft; Absent distention, tenderness or guarding Extremities Exam Extremities exam: Present normal inspection and other (No movement in the left upper nor left lower extremity) Neurological Exam Neurological exam: Present alert and other (Patient aphasic, left-sided facial droop, not answering questions, not moving the left upper and lower the left lower extremity, not answering questions) Skin Skin exam: Present warm, dry and intact Course Quality Measures Suspected type of Stroke: Unknown at this time Last known well (date): 07/15/25 Last known well (time): 16:00 Tenecteplase given: > 60 min of arrival stroke Orders Category Date Time Status Bedside Blood Glucose NOW Care 07/15/25 17:18 Completed Supervisor Body Assembly NOW Care 07/15/25 17:18 Completed Continuous Pulse Oximetry NOW Care 07/15/25 17:18 Completed EKG (ED ONLY) *Do not use* NOW Care 07/15/25 17:18 Completed In and Out Catheter NEEDED Care 07/15/25 17:18 Completed Insert IV NOW Care 07/15/25 17:18 Completed NIH Stroke Scale now Care 07/15/25 17:18 Completed NPO NOW Care 07/15/25 17:18 Completed Nurse Swallow Screen x1 Care 07/15/25 17:18 Completed Consult to Neurology / Tele-Neurology Routine Cons 07/15/25 17:18 Active Referral - Food Service Stat Cons 07/15/25 19:[address] angio stroke protocol Stat Exams 07/15/25 17:[address] stroke protocol Stat Exams 07/15/25 17:18 Completed EKG (ED Only) Stat Exams 07/15/25 17:18 Draft XR chest 1V portable Stat Exams 07/15/25 17:18 Completed CBC Stat Lab 07/15/25 17:53 Completed Comprehensive Metabolic Panel Stat Lab 07/15/25 17:53 Completed Magnesium Stat Lab 07/15/25 17:53 Completed Partial Thromboplastin Time Stat Lab 07/15/25 17:53 Completed Prothrombin Time with INR Stat Lab 07/15/25 17:53 Completed Troponin I Stat Lab 07/15/25 17:53 Completed Labetalol IV [Trandate IV] Med 07/15/25 17:18 Discontinued 10 mg IVP Q15M PRN Ondansetron Inj [Zofran Inj] Med 07/15/25 17:18 Discontinued 4 mg IVP Q4HR PRN Tenecteplase Inj [TNKase Inj] Med 07/15/25 19:11 Discontinued 18 mg IV X1 ONE Tenecteplase Inj [TNKase Inj] Med 07/15/25 19:07 Discontinued 50 mg .ROUTE .STK-MED ONE Oxygen Delivery NOW RT 07/15/25 17:18 Completed Vital Signs Vital signs: Vital Signs Temperature 97.9 F 07/15/25 17:54 Pulse Rate 62 07/15/25 17:54 Respiratory Rate 16 07/15/25 17:54 Blood Pressure 173/60 H 07/15/25 17:54 Pulse Oximetry (%) 98 07/15/25 17:54 Oxygen Delivery Method Room Air 07/15/25 17:54 Neuro Symptoms / Deficit MDM Narrative MDM Narrative:: Patient is a 75-year-old female with medical history notable for hypertension, prior strokes without any residual deficits as in the Emergency Department concerns for acute onset left-sided weakness. Also with aphasia. Vital signs and exam as listed. Patient activated as a stroke alert, taken to the CT scanner, ordered CT brain, CT angio as well as labs. Patient last known well approximately 4 PM. Patient was evaluated by teleneurologist, during evaluation patient went from an NIH of 6 to normal, was ambulating and speaking. Initially tenecteplase was given for administered however given her clinical improvement tenecteplase withheld. CT brain did not show any acute abnormalities. 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 Given this finding initiated transfer for neurointervention. I re-evaluated the patient, spoke with her son at bedside. Patient has weakness in her LUE mild, 4/5. 5/5 strength b/l LEs. Discussed case with neuro interventionalist at [facility] Dr. Gaviria recommends that we provide patient TNK if patient is not completely at her baseline because her symptoms are going to get worse without it. I immediately consulted on-call teleneurologist, agrees with administering tenecteplase will place orders. Patient's daughter and the patient provided consent for tenecteplase. Patient is taking clopidogrel however no other blood thinners. Patient has not had a stroke in the last 3 months, has not had major surgery, no head bleed, no trauma , no history of intracerebral tumors, nor AVMs, no bleeding diathesis. Accepting facility requested the patient be sent ER to ER. I clarified with neurointerventionalist if it was okay for us to send patient over immediately after tenecteplase administration, and he said yes. Labs without any acute hematologic abnormality no significant acute metabolic disturbance. Troponin not elevated. Chest x-ray unremarkable. EKG performed today at 1759 notable for sinus bradycardia, heart 57, normal intervals, some baseline regularity, nonspecific T wave changes, no critical or Tenecteplase administered, patient is at blood pressure goal, hemodynamically stable nondistressed Patient data External records reviewed:: [facility] previous records (Reviewed prior ED records from 02/28/25. Patient was seen for Dizziness.) Clinical information provided by:: patient and EMS Social determinants that could affect healthcare access:: none Patient has the following chronic illnesses:: See MDM How is presenting disease/condition affected by chronic disease/condition?: exacerbated by Evaluation data The following diagnostics were reviewed and interpreted by me:: lab results, radiology exam(s) and EKG tracing(s) Lab and/or radiology exams considered but not ordered:: None Interpretation Summary: See MDM Medications / Prescriptions Medications or Prescriptions considered but not ordered:: None Medication administrations:: Medication Administration History Discontinued Medications Labetalol HCl (Labetalol Inj 5 Mg/Ml Vial 20 Ml) 10 mg IVP Q15M PRN PRN Reason: HYPER Last Admin: 07/15/25 19:19 Dose: 10 mg Documented By: EFE Ondansetron HCl (Ondansetron Inj 2 Mg/Ml Inj 2 Ml) 4 mg IVP Q4HR PRN PRN Reason: NAUSEA OR VOMITING Stop: 08/14/25 17:17 Tenecteplase (Tenecteplase Inj 50 Mg Vial) Confirm Administered Dose 50 mg .ROUTE .STK-MED ONE Stop: 07/15/25 19:08 Last Admin: 07/15/25 19:18 Dose: Not Given Documented By: ARF Non-Admin Reason: Override Medication Tenecteplase (Tenecteplase Inj 50 Mg Vial) 18 mg 0.25 mg/kg (18 mg) IV X1 ONE Stop: 07/15/25 19:12 Last Admin: 07/15/25 19:16 Dose: 18 mg Documented By: ARF Co-signed By: SAY See above Consultations Consultation(s) initiated? (list below): Yes Consultation #1 (Physician, Specialty, Details): See MDM Diagnosis Neuro Differential Diagnosis: other Most likely diagnosis given after review of the tests above:: Stroke Admission Indicated Admission indicated?: not indicated (Transfer) Explain why admission is indicated or not indicated:: Pending transfer to tertiary facility. Admission Request Was there a request for admission?: No Disposition Plan Disposition Plan: Transfer Critical Care Time Critical Care Time Critical Care Time: Yes Total Critical Care Time (min.): 60 Attestation: The high probability of sudden, clinically significant deterioration in the patient?s condition required the highest level of my preparedness to intervene urgently. The services I provided to this patient were to treat and/or prevent clinically significant deterioration. Services included the following: chart data review, reviewing nursing notes and/or old charts, documentation time, security consultant collaboration regarding findings and treatment options, medication orders and management, direct patient care, vital sign assessments and ordering, interpreting and reviewing diagnostic studies and lab tests. Aggregate critical care time includes only time during which I was engaged in work directly related to the patient?s care, as described above, whether at bedside or elsewhere in the Emergency Department. It did not include time spent performing other reported procedures or the services of residents, students, nurses or physician assistants. Discharge Plan Plan Patient Disposition: [facility] Pt Being Transferred to: [facility] Service Needed for Transfer: Interventionalist Prescriptions/Referrals Prescriptions/Med Rec: No Action enalapril maleate 20 mg Tablet 20 mg PO QDAY nadolol 20 mg Tablet 20 mg PO QDAY clopidogrel [Plavix] 75 mg tablet 75 mg PO QDAY Qty: 90 0RF atorvastatin 20 mg tablet 20 mg PO HS Qty: 90 0RF Patient Comments: TAKE 1 TABLET BY MOUTH EVERY DAY atorvastatin 40 mg tablet famotidine 20 mg tablet 20 mg PO BID Patient Comments: TAKE 1 TABLET BY MOUTH TWICE A DAY FOR 90 DAYS clorazepate dipotassium 7.5 mg tablet 7.5 mg PO DAILY PRN (Reason: Anxiety) Patient Comments: TAKE 1 TABLET BY MOUTH EVERY DAY FOR 90 DAYS Referrals: No Primary/Family,Physician [Referring Provider] - In 1 week Problem List Clinical Impression: Stroke Patient/Caregiver Discharge Instructions Print Language: Kazakh Stand Alone Forms: Naty Award Info., Patient Portal Info Letter
--- NOTE | 2025-07-15 17:52 | PC.NURSE ---
Initial NIH [address], symptoms resolving now NIH 2. Per teleneuro not a candidate for TNK, will call Dr Linder for reccommendations.
[2025-07-15 17:59] LABS: Basophils # (Auto) 0.0 Thou/mm3 (0.0-0.2); Basophils % (Auto) 0 % (0-2.5); Eosinophils # (Auto) 0.2 Thou/mm3 (0.0-0.5); Eosinophils % (Auto) 1 % (0-10); Hematocrit 43.3 % (36.0-46.0); Hemoglobin 14.5 g/dL (12.0-16.0); Immature Granulocytes Auto 0.04 Thou/mm3 (0.00-0.00); Lymphocytes # (Auto) 2.2 Thou/mm3 (1.0-4.8); Lymphocytes % (Auto) 19 % (10-50); Mean Corpuscular HGB Conc 33.5 g/dl (31.0-37.0); Mean Corpuscular Hemoglobin 30.7 pg (25.0-35.0); Mean Corpuscular Volume 92 fL (80-100); Monocytes # (Auto) 0.8 Thou/mm3 (0.0-0.8); Monocytes % (Auto) 7 % (0-12); Neutrophils # (Auto) 8.3 Thou/mm3 (1.8-7.7); Neutrophils % (Auto) 72 % (37-80); Nucleated Red Blood Cell # 0.00 Thou/mm3 (0.00-0.00); Nucleated Red Blood Cell % 0 /100 WBC (0); Platelet Count 266 Thou/mm3 (140-440); RDW Standard Deviation 43.7 fL (36.4-46.3); Red Blood Count 4.73 Miln/mm3 (4.00-5.20); White Blood Count 11.5 Thou/mm3 (3.6-11.0)
[2025-07-15 18:16] LABS: INR 1.0 (0.9-1.3); Partial Thromboplastin Time 22.8 Seconds (22.0-36.0); Prothrombin Time 10.9 Seconds (9.0-12.2)
[2025-07-15 18:21] LABS: Alanine Aminotransferase 15 U/L (10-49); Albumin, Serum 4.2 gm/dL (3.4-4.8); Albumin/Globulin Ratio 2.2 (1.2-2.2); Alkaline Phosphatase 83 U/L (46-116); Anion Gap 10 (7-16); Aspartate Amino Transferase 25 U/L (0-34); BUN/Creatinine Ratio 13 Ratio (12-20); Bilirubin,Total 0.4 mg/dL (0.3-1.2); Blood Urea Nitrogen 13 mg/dL (9-23); Calcium 8.9 mg/dL (8.3-10.6); Calcium (Corrected) 8.9 mg/dL (8.5-10.1); Carbon Dioxide 27.7 mMol/L (20.0-31.0); Chloride 106 mMol/L (98-107); Creatinine (Component) 1.0 mg/dL (0.6-1.3); Estimated Creatinine Clearance 48.0 mL/min (>60); Globulin 1.9 gm/dL (2.3-3.5); Glucose 114 mg/dL (74-106); Magnesium 1.7 mg/dL (1.6-2.6); Osmolality,Calculated 287 (275-295); Potassium 4.1 mMol/L (3.4-5.1); Sodium 144 mMol/L (136-145); Total Protein 6.1 gm/dL (5.7-8.2); Troponin I < 0.020 ng/mL (0.0-0.045); eGFR 59 See Note
--- NOTE | 2025-07-15 18:30 | PD.TNEURO ---
Tele Neuro Consultation Consultation Date 07/15/25 Most Recent Vital Signs Last Vital Signs Temp 97.9 F 07/15/25 17:54 Pulse 65 07/15/25 18:00 Resp 14 07/15/25 18:00 BP 173/60 H 07/15/25 17:54 Pulse Ox 98 07/15/25 17:54 O2 Del Method Room Air 07/15/25 17:54 Laboratory-Coagulation Panel PT 10.9 Seconds (9.0-12.2) 07/15/25 17:53 INR 1.0 (0.9-1.3) 07/15/25 17:53 APTT 22.8 Seconds (22.0-36.0) 07/15/25 17:53 Consultation Narrative [facility] Tele[facility]rology Consult [facility] Patient Name:???Alla Vick Date of :???1950 Identification Number:??? Date of Service:???07/15/2025 17:10:24 Diagnosis:?I63.89 - Cerebrovascular accident (CVA) due to other mechanism (FORMER[facility]) Impression: ?Alla Vick is a 75 y.o. woman with a history of 3 prior strokes with no residual deficits (right parietal stroke November 2024, right basal ganglia stroke February 2025), hypertension, migraines, gout, anxiety who was reportedly LKW 1 hour prior to arrival (around 1616) when she developed left sided weakness and slurred speech. In CT, patient complained of feeling weak and not talking right. After CT, she started complaining of headache. Patient says she's always had migraines . NIHSS was initially 6 after the non contrast head CT, notable for stating the wrong month, left facial weakness, LLE>LUE weakness. After CTA, patient's mental status and exam had significantly improved. NIHSS now 2 (for mild L lower facial droop and LLE drift) and patient was able to stand and take a few steps with minimal assistance. Non contrast head CT showed no acute findings. 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 TNK was not given due to patient's significant improvement in exam. She is unlikely to be a candidate for thrombectomy at this time with an NIHSS of 2; however, given that she could potentially have a worsening of her exam, it would be reasonable to transfer her to another facility with thrombectomy capability. ? ? ?Recommendations: ?- would recommend transfer to thrombectomy capable facility given possibility of patient worsening on exam ?- restart aspirin 81 mg daily and Plavix 75 mg daily for secondary stroke prevention ?- Permissive hypertension up to 220/120 x 24 hours; then goal BP normotensive ?- Continuous cardiac monitoring to evaluate for paroxysmal atrial fibrillation ?- TTE with bubble study to evaluate for potential cardioembolic source of stroke ?- MRI brain without contrast to evaluate area of acute ischemia ?- Send routine stroke labs including HbA1c, fasting lipid panel ?- PT/OT/ST evaluation when able ? ? Our recommendations are outlined below. Recommendations: ? Stroke/Telemetry Floor ? Neuro Checks (Q1) ? Bedside Swallow Eval ? DVT Prophylaxis ? IV Fluids, Normal Saline ? Head of Bed 30 Degrees ? Euglycemia and Avoid Hyperthermia (PRN Acetaminophen) ? Initiate or continue Aspirin 81 MG daily ? Initiate Clopidogrel 75 mg daily ? Antihypertensives PRN if Blood pressure is greater than 220/120 or there is a concern for End organ damage/contraindications for permissive HTN. If blood pressure is greater than 220/120 give labetalol PO or IV or Vasotec IV with a goal of 15% reduction in BP during the first 24 hours. Sign Out: ? Discussed with Emergency Department Provider Advanced Imaging:CTA Head and Neck Completed. LVO:Yes Discussed with JUAN CARLOS :No Metrics: Last Known Well: 07/15/2025 16:16:00 Dispatch Time: 07/15/2025 17:10:24 Arrival Time: 07/15/2025 17:16:00 Initial Response Time: 07/15/2025 17:13:47Symptoms: left sided weakness and slurred speech. Initial patient interaction: 07/15/2025 17:23:59 NIHSS Assessment Completed: 07/15/2025 17:34:48Patient is not a candidate for Thrombolytic. Thrombolytic Medical Decision: 07/15/2025 17:47:58Patient was not deemed candidate for Thrombolytic because of following reasons: Stroke severity too mild (non-disabling) . CT Head: I personally reviewed all the CT images that were available to me and it showed: no signs of acute ischemia or acute hemorrhage. I personally reviewed the CTA head/neck. There is occlusion of the distal RIGHT M1. Primary Provider Notified of Diagnostic Impression and Management Plan on: 07/15/2025 18:26:40 History of Present Illness:Patient is a 75 year old Female. Patient was brought by EMS for symptoms of left sided weakness and slurred speech. Alla Vick is a 75 y.o. woman with a history of 3 prior strokes with no residual deficits (right parietal stroke November 2024, right basal ganglia stroke February 2025), hypertension, migraines, gout, anxiety who was reportedly LKW 1 hour prior to arrival (around 1616) when she developed left sided weakness and slurred speech. In CT, patient complained of feeling weak and not talking right. After CT, she started complaining of headache. Patient says she's always had migraines . ? Past Medical History: Other PMH:? 3 prior strokes with no residual deficits (right parietal stroke November 2024, right basal ganglia stroke February 2025), hypertension, migraines, gout, anxiety Medications: No Anticoagulant use? No Antiplatelet use Reviewed EMR for current medications Allergies:? Reviewed Description:?shellfish, sulfa Social History: Smoking: No Alcohol Use: No Family History: There is no family history of premature cerebrovascular disease pertinent to this consultation ROS : 14 Points Review of Systems was performed and was negative except mentioned in HPI. Past Surgical History: There Is No Surgical History Contributory To Today?s Visit ? Examination: BP(173/60),?Pulse(65),?Blood Glucose(119) 1A: Level of Consciousness - Alert; keenly responsive?+ 0 1B: Ask Month and Age - 1 Question Right?+ 1 1C: Blink Eyes & Squeeze Hands - Performs Both Tasks?+ 0 2: Test Horizontal Extraocular Movements - Normal?+ 0 3: Test Visual García - No Visual Loss?+ 0 4: Test Facial Palsy (Use Grimace if Obtunded) - Partial paralysis (lower face)?+ 2 5A: Test Left Arm Motor Drift - Drift, but doesn't hit bed?+ 1 5B: Test Right Arm Motor Drift - No Drift for 10 Seconds?+ 0 6A: Test Left Leg Motor Drift - Drift, hits bed?+ 2 6B: Test Right Leg Motor Drift - No Drift for 5 Seconds?+ 0 7: Test Limb Ataxia (FNF/Heel-Aaron) - No Ataxia?+ 0 8: Test Sensation - Normal; No sensory loss?+ 0 9: Test Language/Aphasia - Normal; No aphasia?+ 0 10: Test Dysarthria - Normal?+ 0 11: Test Extinction/Inattention - No abnormality?+ 0 NIHSS Score:?6 NIHSS Free Text :?Initial NIHSS 6, then improved to 2 (1 point L facial droop, 1 point L leg drift) and patient was able to walk with minimal assistance Pre-Morbid Modified [place] Scale: 0 Points = No symptoms at all Spoke with :?Dr. Linder This consult was conducted in real time using interactive audio and video technology. Patient was informed of the technology being used for this visit and agreed to proceed. Patient located in hospital and provider located at home/office setting. Patient is being evaluated for possible acute neurologic impairment and high probability of imminent or life-threatening deterioration. I spent total of 67 minutes providing care to this patient, including time for face to face visit via telemedicine, review of medical records, imaging studies and discussion of findings with providers, the patient and/or family. Dr Shannon Brownlee [facility] For Inpatient follow-up with [facility] physician please call [facility] at . As we are not an outpatient service for any post hospital discharge needs please contact the hospital for assistance. If you have any questions for the [facility] physicians or need to reconsult for clinical or diagnostic changes please contact us via [facility] at . Signature :Rosa Brownlee
[2025-07-15] MEDS: TENECTEPLASE INJ 50 MG VIAL 18 MG IV (19:16)
[2025-07-15] MEDS: LABETALOL INJ 5 MG/ML VIAL 20 ML 10 MG IVP (19:19)
--- NOTE | 2025-07-15 19:49 | PC.CC ---
Transfer packet created w/ CDX1, given to Charge Nurse Myrna. Stat transport arranged. 1918: Dr. Linder asked to reach out to Dr. Coffman. Peer to peer was completed. Pt can go right after TNK is pushed 1908: Dr. Linder wanted clarity about monitoring patient after TNK is given. Per Dr. De Jesus, he can not answer that question. It would be up to Dr. Linder 1852: Received call back from Renee Sam, Stated pt can go ED TO ED - Dr Jae De Jesus accepted. 1838: DR. linder and DR. Coffman spoke, pt accepted to ICU. 1828: initatied transfer w/ Cecy. [address] Linder for transfer request for M1 occlusion
--- NOTE | 2025-07-15 19:50 | PC.NURSE ---
report given to [facility] [place] at this time.
--- NOTE | 2025-07-15 20:00 | PC.NURSE ---
spoke to tom -rn from [facility], gave telephone report answered all questions.
== END 2025-07-15 20:11 | disposition short-term general hospital (02) ==
PROVIDERS: Emergency Provider Emergency Medicine; PCP Family Medicine
DX: I63.89 Other cerebral infarction (principal); G43.909 Migraine, unspecified, not intractable, without status migrainosus; I10 Essential (primary) hypertension; R29.702 NIHSS score 2; R29.810 Facial weakness
CPT/HCPCS: 36415; 70450; 70496; 70498; 71045; 80053; 80307; 81001; 83735; 84484; 85025; 85610; 85730; 93005; 96374; 99284; A4649; J3101; J3490; Q9967; J1920

== ENCOUNTER 2025-08-31 21:27 | Observation (INO) | payer MEDICARE, SELFPAY ==
[2025-08-31 21:28] VITALS: BMI 22.4
--- NOTE | 2025-08-31 21:33 | EKG_ITS ---
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
[2025-08-31 21:35] VITALS: BP 99/68; PULSE 105; RESP 20; TEMP 36.7; O2SAT 97
--- NOTE | 2025-08-31 22:01 | ECHO_ITS ---
Patient Info Name: Alla Vick Age: 75 years : 1950 Gender: Female Ht: 170 cm Wt: 65 kg BSA: 1.75 m2 BP: 122 / 56 mmHg HR: 114 bpm Exam Date: 09/01/2025 8:29 AM Admit Date: 09/01/2025 Site: [facility] Room Number: ER Patient Status: I Exam Type: CA echo doppler complete Information Systems Specialist: Kimberly Irizarry Ordering Physician: Filippo Gray Study Info Indications Afib Rvr - Primary Location: [facility] Left Ventricular Outflow Tract Name Value Normal LVOT 2D LVOT Diameter 1.9 cm LVOT Doppler LVOT Peak Velocity 62 cm/s LVOT Mean Gradient 1 mmHg LVOT VTI 11 cm LVOT VTI/AV VTI Ratio 0.7 LVOT Stroke Volume 31 ml Pulmonic Valve Name Value Normal PV Doppler PV Peak Velocity 73 cm/s Mitral Valve Name Value Normal MV Doppler MV PHT 36 ms MV Area (PHT) 6.2 cm2 4.0-5.0 MV Annular TDI MV Septal e' Velocity 10.3 cm/s MV Lateral e' Velocity 12.2 cm/s MV e' Average 11.25 cm/s Tricuspid Valve Name Value Normal TV Regurgitation Doppler TR Peak Velocity 106 cm/s TR Peak Gradient 4 mmHg Estimated PAP/RSVP RA Pressure 3 mmHg <=5 PA Systolic Pressure 7 mmHg <36 RV Systolic Pressure 7 mmHg <36 Aortic Valve Name Value Normal AV 2D/MM AV Cusp Sep (MM) 1.2 cm AV Doppler AV Peak Velocity 84 cm/s AV Mean Gradient 2 mmHg AV VTI 16 cm AV Area (Cont Eq VTI) 2.0 cm2 >=3.0 AV Area (Cont Eq Christiano) 2.1 cm2 AV DI (Christiano) 0.74 AV Regurgitation 2D LVOT Area 2.8 cm2 Ventricles Name Value Normal LV Dimensions 2D/MM IVS Diastolic Thickness (2D) 0.8 cm 0.6-0.9 LVID Diastole (2D) 4.4 cm 3.8-5.2 LVIW Diastolic Thickness (2D) 0.8 cm 0.6-0.9 LVID Systole (2D) 3.2 cm 2.2-3.5 LVOT Diameter 1.9 cm LV Mass (2D Cubed) 109.44 g 67.00-162.00 LV Mass Index (2D Cubed) 62 g/m2 43-95 Relative Wall Thickness (2D) 0.36 <=0.42 IVS/LVIW Diastolic Thickness (2D) 1.00 0.00-1.50 LV Fractional Shortening/Ejection Fraction 2D/MM LV Fractional Shortening (2D) 27 % 27-45 LV EF (2D Teichholz) 53 % Atria Name Value Normal LA Dimensions LA Volume (4C A-L) 30 ml LA Volume (BP A-L) 28 ml Left Ventricle Left ventricular chamber dimension is normal. Left ventricular systolic function is normal with visually estimated ejection fraction of 55-60%. There is normal geometry noted in the left ventricle. Left ventricular segmental wall motion is normal. There is indeterminate diastolic function in the left ventricle. Right Ventricle Right ventricular chamber dimension is normal. Right ventricular systolic function is normal. Left Atrium Left atrial chamber dimension is normal. Right Atrium Right atrial chamber dimension is normal. Aortic Valve The aortic valve is trileaflet. There is no aortic valve sclerosis. There is no aortic valve stenosis with a peak velocity of 84 cm/s, mean gradient of 2 mmHg, and aortic valve area of 2.0 cm2. There is no aortic valve regurgitation. Pulmonic Valve The pulmonic valve is normal. There is no pulmonic valve stenosis. There is trace pulmonic regurgitation. Mitral Valve The mitral valve has a calcified annulus. There is no mitral valve stenosis. There is mild mitral valve regurgitation. Tricuspid Valve The tricuspid valve leaflets are normal. There is no tricuspid valve stenosis. There is mild tricuspid valve regurgitation. No pulmonary hypertension, estimated pulmonary arterial systolic pressure is 7 mmHg and systemic blood pressure of 122 mmHg in systole. Pericardium/Pleural The pericardium appears normal. There is no pericardial effusion. No pleural effusion visualized. Inferior Vena Cava Normal inferior vena cava with >50% collapse upon inspiration consistent with normal right atrial pressure, 3 mmHg. Aorta The aortic measurements are indexed to age and body surface area. The aortic root at the sinus of Valsalva is not well visualized. The prox ascending aorta is not well visualized. Summary 1. Left ventricle size is normal and systolic function is normal. Estimated ejection fraction is 55-60%. There is indeterminate diastolic function. 2. Right ventricle chamber size is normal and systolic function is normal. Estimated RVSP is 7 mmHg. 3. There is mild mitral valve regurgitation. 4. There is mild tricuspid valve regurgitation. 5. trace pulmonic valve regurgitation. 6. The left atrium is normal. The right atrium is normal. 7. Normal IVC with estimated RA pressure 3 mmHg. Report Signatures Finalized by Sanket Adames on 09/01/2025 07:42 PM
--- NOTE | 2025-08-31 22:04 | XR_ITS ---
August 31, 2025, 2209 hours, comparison July 15, 2075 INDICATIONS: Chest pain and cardiac palpitations today. FINDINGS: Normal heart size Lungs are clear. Moderate osteopenia. IMPRESSION: No active disease
--- NOTE | 2025-08-31 22:05 | PD.EDADULT ---
ED General RME/HPI General Chief complaint: Chest Pain Stated complaint: CHEST PRESSURE, HIGH HEART RATE Time Seen by Provider: 08/31/25 21:38 Arrival date/time: 08/31/25 21:27 Related Data Home Medications ?Medication ?Instructions ?Recorded ?Confirmed clorazepate dipotassium 7.5 mg 7.5 mg PO DAILY PRN Anxiety 10/26/23 09/01/25 tablet famotidine 20 mg tablet 20 mg PO BID 10/26/23 09/01/25 allopurinol 100 mg tablet 100 mg PO QDAY 09/01/25 09/01/25 aspirin 81 mg tablet,delayed 81 mg PO QDAY 09/01/25 09/01/25 release atorvastatin 20 mg tablet 80 mg PO HS 09/01/25 09/01/25 losartan 100 mg tablet 100 mg PO QDAY 09/01/25 09/01/25 nadolol 40 mg tablet 40 mg PO QDAY 09/01/25 09/01/25 pantoprazole 40 mg tablet,delayed 40 mg PO QDAY 09/01/25 09/01/25 release Previous Rx's ?Medication ?Instructions ?Recorded clopidogrel 75 mg tablet (Plavix) 75 mg PO QDAY #90 tabs 11/28/24 Allergies Allergy/AdvReac Type Severity Reaction Status Date / Time shellfish derived Allergy Severe Hives Verified 08/31/25 21:28 Sulfa (Sulfonamide Allergy Severe Hives Verified 08/31/25 21:28 Antibiotics) ED Exam Narrative Physical exam: Physical Exam: GENERAL: Awake, answering questions appropriately, appears stated age HEENT: NC/AT. Moist mucosa. PERRLA/EOMI. CARDIO: Irregularly irregular and tachycardic, no obvious murmurs, no JVD. PULM: No coughing or visible SOB. Lungs CTA B/L. GI: Abdomen soft, NT/ND, +BS. SKIN/MSK/EXT: No wounds/discoloration/rashes/edema/amputations noted. +Pedal pulses present B/L. NEURO: Oriented x3, Moves extremities x4, no focal neurologic deficits noted. 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 Q4H START 00 Care 08/31/25 22:03 Active Decision to Admit X1 Care 09/01/25 00:03 Completed EKG (ED ONLY) *Do not use* NOW Care 08/31/25 21:33 Completed Insert IV NOW Care 08/31/25 22:03 Active CA echo doppler complete Stat Exams 08/31/25 22:01 Ordered CXRP [XR chest 1V portable] Stat Exams 08/31/25 22:04 Completed EKG (ED Only) Stat Exams 08/31/25 21:33 Draft A1C [Glycohemoglobin w (eAG)] Stat Lab 08/31/25 22:28 Completed BNP [B-Type Natriuretic Peptide] Stat Lab 08/31/25 22:28 Completed CBC Stat Lab 08/31/25 22:28 Completed CMP [Comprehensive Metabolic Panel] Stat Lab 08/31/25 22:28 Completed Free T4 (Free Thyroxine) Stat Lab 08/31/25 22:28 Completed Lipid Panel Stat Lab 08/31/25 22:28 Completed TSH [Thyroid Stimulating Hormone] Stat Lab 08/31/25 22:28 Completed Troponin I Stat Lab 08/31/25 22:28 Completed Urinalysis, C/S if Indicated Stat Lab 09/01/25 00:35 Completed Apixaban [Eliquis] Med 08/31/25 22:08 Discontinued 5 mg PO X1 ONE Metoprolol Tartrate Inj [Lopressor Inj] Med 08/31/25 22:01 Discontinued 2.5 mg IVP X1 ONE Metoprolol Tartrate Inj [Lopressor Inj] Med 09/01/25 00:45 Discontinued 2.5 mg IVP X1 ONE Vital Signs Vital signs: Vital Signs Temperature 98.0 F 08/31/25 21:35 Pulse Rate 105 H 08/31/25 21:35 Respiratory Rate 20 08/31/25 21:35 Blood Pressure 99/68 08/31/25 21:35 Pulse Oximetry (%) 97 08/31/25 21:35 Oxygen Delivery Method Room Air 08/31/25 21:35 Discharge Plan Plan Patient Disposition: Admit Acute Care w/in Hospital Patient condition on transfer: Stable Problem List Clinical Impression: New onset a-fib MDM Narrative MDM hospital course (for use when minimal MDM required): HPI: 75-year-old female with past medical history of CVA with no residual deficits on aspirin and Plavix, gout, hyperlipidemia, hypertension presenting to the ED on 08/31 with episode of rapid heart rate and apparently A-fib noted on her [employer] iWatch. Patient states that in June she presented to this hospital and was found to have ischemic stroke including total occlusion of M1 segment of the right middle cerebral artery, she was given tenecteplase and transferred to tertiary care center with neurosurgery evaluation. Patient states she does not have any neurologic deficits from that episode. She was seen by financial operations consultant, Dr. Moon, at [place] where she was transferred and she is currently being worked up for atrial fibrillation. She states that Dr. Moon is planning on doing a CATHLEEN at a later visit (likely Tuesday 09/04). She was previously seen by Dr. Ceja who was apparently done Lexiscan stress test which was unremarkable and did not trigger atrial fibrillation. Patient states that she has longstanding history of GERD as well which she believes is a contributing factor because that is when she feels palpitations but denies having any fast heart rate at any point. She also denies having any chest pain, orthopnea, paroxysmal nocturnal dyspnea, dizziness, loss of consciousness, lower extremity edema. On examination, please refer to the physical exam note above; patient presented to the EDwith a blood pressure 99/68, heart rate fluctuating from 120-130, respiratory rate of 20, afebrile satting 97 on room air. Pertinent lab findings included CBC which was largely unremarkable, CMP did show mild hypernatremia sodium 146, hyperchloremia with a chloride of 108, troponin less than 0.020, BNP of 856, TSH of 1.88 and a free T41.47. EKG shows atrial fibrillation with RVR and chest x-ray does not show any active disease process. #New onset A-fib #Likely paroxysmal atrial fibrillation [id number] score of 3 (hypertension and history of stroke), could be 4 if patient was 76 HAS-BLED score of 4 (Hypertension, stroke history, age greater than 65 and use of antiplatelet) As noted above in HPI, patient has had multiple episodes of TIA, stroke likely secondary to paroxysmal A-fib She follows financial operations consultant Dr. Moon in [place], previously seen by Dr. Ceja She is on Plavix and aspirin for CVA Last echo on file in November 2024 showed preserved ejection fraction without any LV dysfunction, normal size and function Plan: IV metoprolol tartrate 2.5 mg for rate control x2 Eliquis 5 mg initiated Echo ordered Called admitting hospitalist team who have agreed to admit the patient for observation Patient seen and assessed with attending Dr. Elvis Gray, DO PGY-2 Internal Medicine - GME Medication Administration(s) Medication Administration History Acetaminophen (Acetaminophen 325 Mg Tablet) 650 mg PO Q6H PRN PRN Reason: Fever >101.5 or pain 1-3 Stop: 10/01/25 01:10 Allopurinol (Allopurinol 100 Mg Tablet) 100 mg PO QDAY [facility] Stop: 10/01/25 08:59 Apixaban (Apixaban 2.5 Mg Tablet) 5 mg PO BID [facility] Stop: 10/01/25 08:59 Atorvastatin Calcium (Atorvastatin Calcium 20 Mg Tablet) 80 mg PO HS [facility] Stop: 10/01/25 20:59 Famotidine (Famotidine 20 Mg Tablet) 20 mg PO BID [facility] Stop: 10/01/25 08:59 Losartan Potassium (Losartan Potassium 25 Mg Tablet) 100 mg PO QDAY [facility] Stop: 10/01/25 08:59 Metoprolol Tartrate (Metoprolol Tartrate 25 Mg Tablet) 50 mg PO BID [facility] Stop: 10/01/25 08:59 Non-Formulary Medication (Clorazepate Dipotassium) 7.5 mg PO DAILY PRN PRN Reason: Anxiety Ondansetron HCl (Ondansetron Inj 2 Mg/Ml Inj 2 Ml) 4 mg IVP Q6H PRN; Protocol PRN Reason: NAUSEA OR VOMITING Stop: 10/01/25 01:10 Discontinued Medications Apixaban (Apixaban 2.5 Mg Tablet) 5 mg PO X1 ONE Stop: 08/31/25 22:09 Last Admin: 08/31/25 22:38 Dose: 5 mg Documented By: SR Aspirin (Aspirin Ec 81 Mg Tabec) 81 mg PO QDAY [facility] Stop: 10/01/25 08:59 Clopidogrel Bisulfate (Clopidogrel Bisulfate 75 Mg Tablet) 75 mg PO QDAY [facility] Stop: 10/01/25 08:59 Metoprolol Tartrate (Metoprolol Tartrate Inj 1 Mg/Ml Vial 5 Ml) 2.5 mg IVP X1 ONE Stop: 08/31/25 22:02 Last Admin: 08/31/25 22:37 Dose: 2.5 mg Documented By: SR Metoprolol Tartrate (Metoprolol Tartrate Inj 1 Mg/Ml Vial 5 Ml) 2.5 mg IVP X1 ONE Stop: 09/01/25 00:46 Last Admin: 09/01/25 01:14 Dose: 2.5 mg Documented By: SR
[2025-08-31 22:32] VITALS: PULSE 129
[2025-08-31 22:33] VITALS: BP 104/82; PULSE 137; RESP 18; O2SAT 98
[2025-08-31 22:37] VITALS: BP 104/82; PULSE 140
[2025-08-31] MEDS: APIXABAN 2.5 MG TABLET 5 MG PO (22:38)
[2025-08-31 22:39] LABS: Basophils # (Auto) 0.0 Thou/mm3 (0.0-0.2); Basophils % (Auto) 0 % (0-2.5); Eosinophils # (Auto) 0.2 Thou/mm3 (0.0-0.5); Eosinophils % (Auto) 1 % (0-10); Hematocrit 44.0 % (36.0-46.0); Hemoglobin 14.8 g/dL (12.0-16.0); Immature Granulocytes Auto 0.02 Thou/mm3 (0.00-0.00); Lymphocytes # (Auto) 4.1 Thou/mm3 (1.0-4.8); Lymphocytes % (Auto) 39 % (10-50); Mean Corpuscular HGB Conc 33.6 g/dl (31.0-37.0); Mean Corpuscular Hemoglobin 30.5 pg (25.0-35.0); Mean Corpuscular Volume 91 fL (80-100); Monocytes # (Auto) 1.0 Thou/mm3 (0.0-0.8); Monocytes % (Auto) 9 % (0-12); Neutrophils # (Auto) 5.5 Thou/mm3 (1.8-7.7); Neutrophils % (Auto) 51 % (37-80); Nucleated Red Blood Cell # 0.00 Thou/mm3 (0.00-0.00); Nucleated Red Blood Cell % 0 /100 WBC (0); Platelet Count 334 Thou/mm3 (140-440); RDW Standard Deviation 44.3 fL (36.4-46.3); Red Blood Count 4.85 Miln/mm3 (4.00-5.20); White Blood Count 10.7 Thou/mm3 (3.6-11.0)
[2025-08-31 23:32] LABS: Alanine Aminotransferase 14 U/L (10-49); Albumin, Serum 4.5 gm/dL (3.4-4.8); Albumin/Globulin Ratio 2.0 (1.2-2.2); Alkaline Phosphatase 92 U/L (46-116); Anion Gap 10 (7-16); Aspartate Amino Transferase 21 U/L (0-34); BUN/Creatinine Ratio 22 Ratio (12-20); Bilirubin,Total 0.3 mg/dL (0.3-1.2); Blood Urea Nitrogen 22 mg/dL (9-23); Calcium 9.4 mg/dL (8.3-10.6); Calcium (Corrected) 9.4 mg/dL (8.5-10.1); Carbon Dioxide 28.5 mMol/L (20.0-31.0); Cardiac Risk Estimate 2.6 RATIO (3.7-5.6); Chloride 108 mMol/L (98-107); Cholesterol 120 mg/dL (132-200); Creatinine (Component) 1.0 mg/dL (0.6-1.3); Estimated Creatinine Clearance 48.0 mL/min (>60); Free T4 (Free Thyroxine) 1.47 ng/dL (0.89-1.76); Globulin 2.2 gm/dL (2.3-3.5); Glucose 126 mg/dL (74-106); HDL Cholesterol 46 mg/dL (40-60); LDL Cholesterol,Calculated 52 mg/dL (0-130); Osmolality,Calculated 295 (275-295); Potassium 4.3 mMol/L (3.4-5.1); Sodium 146 mMol/L (136-145); Thyroid Stimulating Hormone 1.88 uIU/mL (0.55-4.78); Total Protein 6.7 gm/dL (5.7-8.2); Triglycerides 111 mg/dL (30-150); Troponin I < 0.020 ng/mL (0.0-0.045); eGFR 59 See Note
[2025-08-31 23:33] LABS: B-Type Natriuretic Peptide 856 pg/mL (0-100)
[2025-08-31 23:47] LABS: Glucose Estimated Average 117 mg/dL (80-131); Hemoglobin A1C 5.7 % Hgb (4.8-6.0)
[2025-09-01] VITALS (37 sets, daily range): BP systolic 88–164; BP diastolic 50–105; PULSE 52–137; RESP 11–28; TEMP 36.1–37.6; O2SAT 89–99
[2025-09-01 01:04] LABS: Collection Type, Urine Clean Catch
--- NOTE | 2025-09-01 01:24 | ESHP_ITS ---
Documentation for date of: 09/01/25 [facility] History of Present Illness Chief complaint: General malaise History of present illness: This patient is a 75-year-old female with a history of multiple TIAs and 1 episode of CVA without residual deficits (now on aspirin and Plavix), gout, hyperlipidemia, and hypertension who presented to [facility] ED on 08/31 after feeling of general malaise and was found to have atrial fibrillation on her Apple iWatch. Patient was admitted under observation for management of new onset atrial fibrillation. The patient had been previously admitted at [facility] on 11/26/2024. During this visit, the patient had acute onset gait instability to be In the morning and was found to have acute infarcts in the right parietal lobe and the right caudate nucleus are MRI/MRA. Echocardiogram at that time did not show any abnormalities and had negative bubble study. The patient had resolution of her symptoms and was discharged on dual antiplatelet therapy with plans for indefinite Plavix and statin by neurology at the time. Later on in the year, the patient had an episode of acute onset left-sided body weakness and sought care at [facility] ED on 07/15/2025. 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 During that time, the patient stated that echocardiogram was also negative for any acute findings. Given these repeated episodes, the patient sought additional cardiac workup. The patient currently follows a neurology stroke physician, Dr. Moon, in [place], who had planned for Holter monitor placement, stress test, and CATHLEEN on 09/04/2025 with possible plans for cardiac catheterization. During all her previous visits, the patient has not ever been diagnosed with atrial fibrillation, however the patient does take nadolol at home as she was noted to have abnormal heartbeats when she was younger in childhood. The patient states that she can feel her heart flutter and has generalized weakness during episodes of worsening acid reflux, but has never had any official diagnosis of atrial fibrillation linked to these episodes. The patient does have a significant history of strokes in her mother side of the family, with several members passing away due to strokes. The patient only sought care at [facility] ED because her neurology stroke physician recommended that she upgrade her Apple iWatch to a version that has been FDA approved for limited cardiac monitoring, and early in the afternoon it was telling her that she was in atrial fibrillation with RVR. Patient denies any fevers, chills, headaches, chest pain, shortness of breath, abdominal pain, dysuria, or nausea/vomiting. Will monitor the patient under observation to see if there is sustained resolution of her atrial fibrillation with RVR with metoprolol to tartrate 50 mg twice daily and monitor for any adverse effects of starting Eliquis with plans for the patient to follow-up with outpatient cardiology for further workup and medical management for her newly diagnosed atrial fibrillation. ED course: Initial vitals significant for heart rate of 105. Later on vitals with fluctuate from 110s to 130s. Initial labs significant for slightly elevated sodium at 146 and slightly elevated chloride at 108. BNP noted to be elevated at 856. Patient was given metoprolol to tartrate 2.5 mg IV push x 1, which was able to resolve her RVR and then given Eliquis 5 mg. However several hours later, the patient would go back into RVR, so the patient was given another dose of metoprolol tartrate 2.5 mg IV push. Past Surgical History: Cholecystectomy Current Medication(s): As reflected on med rec Allergies (w/ Reactions): Shellfish (hives) and sulfa drugs (patient becomes red) Family History: Strokes and multiple members of her mother side of the family, mother and grandmother from hemorrhagic strokes Alcohol Intake: Patient denies Tobacco/Vape Use: Patient denies Other Drug Use: Patient denies Review of Systems Review of Systems Systems Reviewed: All systems reviewed, normal except as documented Exam Vital Signs Temp Pulse Resp BP Pulse Ox O2 Del Method 98.0 F 127 H 16 95/72 97 Room Air 08/31/25 21:35 09/01/25 01:17 09/01/25 01:17 09/01/25 01:17 09/01/25 01:17 09/01/25 01:17 Narrative Exam Physical Exam: General: Alert, no acute distress. Skin: Warm, dry, intact. Head: Normocephalic, atraumatic. Eye: Normal conjunctiva, PERRL. Throat: Oral mucosa moist. No obvious lesions in oropharynx. Cardiovascular: Tachycardic rate and irregular rhythm, no murmur, +S1/S2. Respiratory: Lungs are clear to auscultation, respirations unlabored, no crackles, no wheezing. Gastrointestinal: Soft, nontender, non-distended. No guarding or rebound tenderness. Extremities: No edema, no cyanosis, no clubbing. 2+ radial pulse bilaterally, 2+ pedal pulse bilaterally. Neuro: No focal deficits observed. Conversant, moving all extremities. No overt cerebellar signs/incoordination. Psychiatric: Cooperative, appropriate affect. Results: Labs 09/01/25 05:45 09/01/25 05:45 Labs: Short CBC 08/31/25 Range/Units 22:28 WBC 10.7 (3.6-11.0) Thou/mm3 Hgb 14.8 (12.0-16.0) g/dL Hct 44.0 (36.0-46.0) % Plt Count 334 (140-440) Thou/mm3 BMP 08/31/25 22:28 Sodium 146 H Potassium 4.3 Chloride 108 H Carbon Dioxide 28.5 BUN 22 Creatinine 1.0 Glucose 126 H Calcium 9.4 Cardiac Enzymes 08/31/25 Range/Units 22:28 Troponin I < 0.020 (0.0-0.045) ng/mL Liver Function 08/31/25 Range/Units 22:28 Total Bilirubin 0.3 (0.3-1.2) mg/dL AST 21 (0-34) U/L ALT 14 (10-49) U/L Alkaline Phosphatase 92 (46-116) U/L Albumin 4.5 (3.4-4.8) gm/dL Quality Measures Quality Measures VTE prophylaxis Advance care planning discussed with:: patient Medications Home Medications and Allergies Home Medications ?Medication ?Instructions ?Recorded ?Confirmed ?Type clorazepate dipotassium 7.5 mg 7.5 mg PO DAILY PRN Anx iety 10/26/23 09/01/25 History tablet famotidine 20 mg tablet 20 mg PO BID 10/26/23 History allopurinol 100 mg tablet 100 mg PO QDAY 09/01/2504/19 History aspirin 81 mg tablet,delayed 81 mg PO QDAY 09/01/25 History release atorvastatin 20 mg tablet 80 mg PO HS 12/07/25 12/07/2 5 History losartan 100 mg tablet 100 mg PO QDAY 09/01/25 12/0 04/19 History nadolol 40 mg tablet 40 mg PO QDAY 09/01/2509/01 History pantoprazole 40 mg tablet,delayed 40 mg PO QDAY 09/01/25 History release Allergies Allergy/AdvReac Type Severity Reaction Status Date / Time shellfish derived Allergy Severe Hives Verified 08/31/25 21:28 Sulfa (Sulfonamide Allergy Severe Hives Verified 08/31/25 21:28 Antibiotics) Visit Medications Acetaminophen (Acetaminophen 325 Mg Tablet) 650 mg PO Q6H PRN PRN Reason: Fever >101.5 or pain 1-3 Stop: 10/01/25 01:10 Allopurinol (Allopurinol 100 Mg Tablet) 100 mg PO QDAY [facility] Stop: 10/01/25 08:59 Atorvastatin Calcium (Atorvastatin Calcium 20 Mg Tablet) 80 mg PO HS [facility] Stop: 10/01/25 20:59 Famotidine (Famotidine 20 Mg Tablet) 20 mg PO BID [facility] Stop: 10/01/25 08:59 Losartan Potassium (Losartan Potassium 25 Mg Tablet) 100 mg PO QDAY [facility] Stop: 10/01/25 08:59 Metoprolol Tartrate (Metoprolol Tartrate 25 Mg Tablet) 50 mg PO BID [facility] Stop: 10/01/25 01:29 Non-Formulary Medication (Clorazepate Dipotassium) 7.5 mg PO DAILY PRN PRN Reason: Anxiety Ondansetron HCl (Ondansetron Inj 2 Mg/Ml Inj 2 Ml) 4 mg IVP Q6H PRN; Protocol PRN Reason: NAUSEA OR VOMITING Stop: 10/01/25 01:10 Discontinued Medications Apixaban (Apixaban 2.5 Mg Tablet) 5 mg PO X1 ONE Stop: 08/31/25 22:09 Last Admin: 08/31/25 22:38 Dose: 5 mg Aspirin (Aspirin Ec 81 Mg Tabec) 81 mg PO QDAY [facility] Stop: 10/01/25 08:59 Clopidogrel Bisulfate (Clopidogrel Bisulfate 75 Mg Tablet) 75 mg PO QDAY [facility] Stop: 10/01/25 08:59 Metoprolol Tartrate (Metoprolol Tartrate Inj 1 Mg/Ml Vial 5 Ml) 2.5 mg IVP X1 ONE Stop: 08/31/25 22:02 Last Admin: 08/31/25 22:37 Dose: 2.5 mg Metoprolol Tartrate (Metoprolol Tartrate Inj 1 Mg/Ml Vial 5 Ml) 2.5 mg IVP X1 ONE Stop: 09/01/25 00:46 Last Admin: 09/01/25 01:14 Dose: 2.5 mg Assessment & Plan Plan This patient is a 75-year-old female with a history of multiple TIAs and 1 episode of CVA without residual deficits (now on aspirin and Plavix), gout, hyperlipidemia, and hypertension who presented to [facility] ED on 08/31 after feeling of general malaise and was found to have atrial fibrillation on her Apple iWatch. Patient was admitted under observation for management of new onset atrial fibrillation. #New onset atrial fibrillation with RVR #Paroxysmal atrial fibrillation Patient noted to have new onset atrial fibrillation with RVR that was not previously identified from prior hospitalizations. All previous echocardiograms did not show any atrial fibrillation, yet patient continues to have episodes of TIA and has had 2 episodes of CVA. Paroxysmal atrial fibrillation is likely as the patient does note that she has feelings of generalized malaise when her GERD flares up, similar to what happened prior to her apple iWatch notifying her of atrial fibrillation with RVR before seeking help in the ED. The patient follows Dr. Moon for cardiology outpatient in [place] and has plans for Holter monitoring, stress test, and CATHELEN on 09/04/2025. Diagnostic: [id number] score of 3 (hypertension and history of stroke), could be 4 if patient was 76 HAS-BLED score of 4 (Hypertension, stroke history, age greater than 65 and use of antiplatelet) Echocardiogram on shows LVEF 55 to 60%, negative bubble study, and no atrial fibrillation identified Treatment: Eliquis 5 mg twice daily Will hold home nadolol for now Metoprolol to tartrate 50 mg twice daily Patient to follow-up with her neurology stroke physician outpatient Echocardiogram ordered, will possibly defer as patient will be scheduled for CATHLEEN by her outpatient neurology stroke physician on Tuesday 09/04 Cardiac diet ordered #History of CVAs without residual deficits #History of TIAs Patient reported history of multiple TIAs and has had recent CVAs back on 11/26/2024 and 07/15/2025. Patient noted to have significant history of strokes on her mother's side. 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 Patient is without any residual deficits. Treatment: Will continue clopidogrel 75 mg daily indefinitely as directed by neurology on note from 11/27/24 Patient to follow-up outpatient #GERD Patient reports a history of GERD, which often precedes episodes of generalized malaise but may be associated with episodes of atrial fibrillation with RVR. Treatment: Resumed patient's home famotidine 20 mg twice daily Will consider resuming patient's home pantoprazole 40 mg daily GERD diet modifier #Hypertension #Gout #Hyperlipidemia Per patient, resumed the patient's home atorvastatin 80 mg nightly, allopurinol 100 mg daily Consider resuming home losartan 100 mg daily depending on blood pressure trend DVT Prophylaxis: Eliquis GI Prophylaxis: Famotidine Bowel: N/A Diet: Cardiac Lu: N/A Lines: PIV Antibiotics: N/A Code Status: FULL Reason for Hospitalization: New onset atrial fibrilation Other Barriers to Discharge: Obs Patient plan of care was discussed with the attending physician Dr. Shawn Bay, PGY1 Attending Provider Attestation/Addendum After examination of the patient and review of the clinical data I feel that this patient needs admission to the hospital for further treatment/evaluation. Plan of care discussed with patient and is in agreement. I Eli Escobar MD, attest that I was physically present for lópez portions of evaluation, and examined patient, labs and imagings and plan of care were discussed with IM residents team, and I agree with the findings and plans documented above.
[2025-09-01 01:31] LABS: Bilirubin,Urine Negative (Negative); Blood,Urine Negative (Negative); Clarity,Urine Clear (Clear/Hazy); Color,Urine Lt-Yellow (Lt Yel-Yel); Culture Indicated,Urine Not Indicated; Glucose, Urine Negative (Negative); Ketones,Urine 1+ (Negative); Leukocyte Esterase,Urine Positive (Negative); Nitrite,Urine Negative (Negative); PH,Urine 6.0 (5.0-7.0); Protein,Urine Negative (Neg - Trace); RBC,Urine 3 /hpf (0-3); Specific Gravity,Urine 1.020 (1.001-1.035); Squamous Epithelial Cell,Urine 1 /hpf (0-5); Urobilinogen,Urine Negative mg/dL (0.0-1.0); WBC,Urine 2 /hpf (0-5)
[2025-09-01 06:16] LABS: Basophils # (Auto) 0.0 Thou/mm3 (0.0-0.2); Basophils % (Auto) 0 % (0-2.5); Eosinophils # (Auto) 0.1 Thou/mm3 (0.0-0.5); Eosinophils % (Auto) 1 % (0-10); Hematocrit 44.5 % (36.0-46.0); Hemoglobin 15.0 g/dL (12.0-16.0); Immature Granulocytes Auto 0.02 Thou/mm3 (0.00-0.00); Lymphocytes # (Auto) 4.0 Thou/mm3 (1.0-4.8); Lymphocytes % (Auto) 40 % (10-50); Mean Corpuscular HGB Conc 33.7 g/dl (31.0-37.0); Mean Corpuscular Hemoglobin 31.0 pg (25.0-35.0); Mean Corpuscular Volume 92 fL (80-100); Monocytes # (Auto) 0.9 Thou/mm3 (0.0-0.8); Monocytes % (Auto) 9 % (0-12); Neutrophils # (Auto) 5.1 Thou/mm3 (1.8-7.7); Neutrophils % (Auto) 50 % (37-80); Nucleated Red Blood Cell # 0.00 Thou/mm3 (0.00-0.00); Nucleated Red Blood Cell % 0 /100 WBC (0); Platelet Count 296 Thou/mm3 (140-440); RDW Standard Deviation 45.5 fL (36.4-46.3); Red Blood Count 4.84 Miln/mm3 (4.00-5.20); White Blood Count 10.2 Thou/mm3 (3.6-11.0)
[2025-09-01 06:48] LABS: Albumin, Serum 4.3 gm/dL (3.4-4.8); Anion Gap 11 (7-16); BUN/Creatinine Ratio 20 Ratio (12-20); Blood Urea Nitrogen 20 mg/dL (9-23); Calcium 9.9 mg/dL (8.3-10.6); Calcium (Corrected) 9.9 mg/dL (8.5-10.1); Carbon Dioxide 28.2 mMol/L (20.0-31.0); Chloride 108 mMol/L (98-107); Creatinine (Component) 1.0 mg/dL (0.6-1.3); Estimated Creatinine Clearance 48.0 mL/min (>60); Glucose 104 mg/dL (74-106); Magnesium 1.9 mg/dL (1.6-2.6); Osmolality,Calculated 295 (275-295); Potassium 4.2 mMol/L (3.4-5.1); Sodium 147 mMol/L (136-145); eGFR 59 See Note
[2025-09-01 06:49] LABS: Phosphorous 3.7 mg/dL (2.4-5.1)
--- NOTE | 2025-09-01 07:45 | PC.NURSE ---
Pt. here from home to room 8, pt. states she has had 3 mini strokes and 1 stroke, pt. states she didn't know she had A fib, pt. states her son bought her a I phone and a apple watch and last night her watch told her she had A fib. Pt. states she then came to ER. Pt. states she can feel when her blood pressure is dropping. Pt. states she feels good right now. Pt. states she is glad that she has her watch. 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 states she worked at [employer].
--- NOTE | 2025-09-01 07:50 | PC.NURSE ---
Breakfast tray given to pt.
[2025-09-01] MEDS: CLOPIDOGREL BISULFATE 75 MG TABLET PO (09:38)
[2025-09-01] MEDS: FAMOTIDINE 20 MG TABLET PO ×2 (09:39→20:38)
[2025-09-01] MEDS: APIXABAN 2.5 MG TABLET 5 MG PO ×2 (11:09→20:38)
[2025-09-01] MEDS: DIGOXIN 0.125 MG TABLET 0.25 MG PO (11:12)
--- NOTE | 2025-09-01 14:37 | ESPR_ITS ---
<Statement entered by Annalise Garcia MD - 09/09/25 09:24> I reviewed above note and agree with findings and plans. I have also personally examined the patient with medicine team and went over assessment and plan with medical team including public relations intern and resident physician. Documentation for date of: 09/01/25 Subjective Subjective Interval history: Patient remained intermittently in AF with RVR overnight with HR 110?130s. Started on digoxin, which resulted in significant improvement in rate control; HR now in the 60s on re-evaluation. Blood pressure stable. Patient seen at bedside, no acute complaints. Reports a 15+ year history of intermittent palpitations/flutters, previously evaluated by EKG and told ?not to worry about it at this age.? Holter monitor last year by her lock technician, Dr. Louise, was normal. She was scheduled for a 7-day Holter this upcoming Tuesday but purchased an Apple Watch, which last night alerted her to irregular rhythm likely AF. ED EKG confirmed atrial fibrillation. Given her long history of episodic palpitations, diagnosis is more consistent with paroxysmal atrial fibrillation, not truly new onset. Significant family history of strokes (mother, grandmother, niece), and patient reports one miscarriage; her mother reportedly had multiple miscarriages. Suspicion raised for antiphospholipid syndrome (APS); workup ordered. In-house cardiology (Dr. Adames) consulted. BNP elevated but CXR normal; patient euvolemic. No neurologic deficits today. Exam Vital Signs Temp Pulse Resp BP Pulse Ox O2 Del Method 98.0 F 60 16 129/74 99 Room Air 09/01/25 14:05 09/01/25 14:05 09/01/25 14:05 09/01/25 14:05 09/01/25 14:05 09/01/25 14:05 Narrative Exam Physical Exam: General: Alert, no acute distress. Skin: Warm, dry, intact. Head: Normocephalic, atraumatic. Eye: Normal conjunctiva, PERRL. Throat: Oral mucosa moist. No obvious lesions in oropharynx. Cardiovascular: Tachycardic rate and irregular rhythm, no murmur, +S1/S2. Respiratory: Lungs are clear to auscultation, respirations unlabored, no crackles, no wheezing. Gastrointestinal: Soft, nontender, non-distended. No guarding or rebound tenderness. Extremities: No edema, no cyanosis, no clubbing. 2+ radial pulse bilaterally, 2+ pedal pulse bilaterally. Neuro: No focal deficits observed. Conversant, moving all extremities. No overt cerebellar signs/incoordination. Psychiatric: Cooperative, appropriate affect. Objective Labs 09/01/25 05:45 09/01/25 05:45 Labs: Laboratory Results - last 24 hr 08/31/25 09/01/25 09/01/25 22:28 00:35 05:45 WBC 10.7 10.2 RBC 4.85 4.84 Hgb 14.8 15.0 Hct 44.0 44.5 MCV 91 92 MCH 30.5 31.0 MCHC 33.6 33.7 RDW Std Deviation 44.3 45.5 Plt Count 334 296 D Neut % (Auto) 51 50 Lymph % (Auto) 39 40 [place] % (Auto) 9 9 Eos % (Auto) 1 1 Baso % (Auto) 0 0 Neut # (Auto) 5.5 5.1 Lymph # (Auto) 4.1 4.0 [place] # (Auto) 1.0 H 0.9 H Eos # (Auto) 0.2 0.1 Baso # (Auto) 0.0 0.0 Immature Gran # (Auto) 0.02 H 0.02 H Absolute Nucleated RBC 0.00 0.00 Immature Gran % 0 0 Nucleated RBC % 0 0 Sodium 146 H 147 H Potassium 4.3 4.2 Chloride 108 H 108 H Carbon Dioxide 28.5 28.2 Anion Gap 10 11 BUN 22 20 Creatinine 1.0 1.0 Estim Creat Clear Calc 48.0 L 48.0 L eGFR 59 L 59 L BUN/Creatinine Ratio 22 H 20 Glucose [address] Glu mg/dL 117 Hemoglobin A1c 5.7 Calculated Osmolality 295 295 Calcium 9.4 9.9 Corrected Calcium 9.4 9.9 Phosphorus 3.7 Magnesium 1.9 Total Bilirubin 0.3 AST 21 ALT 14 Alkaline Phosphatase 92 Troponin I < 0.020 B-Natriuretic Peptide 856 H* Total Protein 6.7 Albumin 4.5 4.3 Globulin 2.2 L Albumin/Globulin Ratio 2.0 Triglycerides 111 Cholesterol 120 L LDL Cholesterol, Calc 52 HDL Cholesterol 46 Cholesterol/HDL Ratio 2.6 L TSH 1.88 Free T4 1.47 Ur Collection Type Clean Catch Urine Color Lt-Yellow Urine Clarity Clear Urine pH 6.0 Ur Specific [place] 1.020 Urine Protein Negative Urine Glucose (UA) Negative Urine Ketones 1+ A Urine Blood Negative Urine Nitrite Negative Urine Bilirubin Negative Urine Urobilinogen (Auto) Negative Ur Leukocyte Esterase Positive Urine RBC 3 Urine WBC 2 Ur Squamous Epith Cells 1 Urine Bacteria None Ur Culture Indicated? Not Indicated Quality Measures Quality Measures VTE prophylaxis Advance care planning discussed with:: patient Assessment & Plan Assessment Current Active Medications: Generic Name Dose Route Start Last Admin Trade Name Freq PRN Reason Stop Dose Admin Acetaminophen 650 mg 09/01/25 01:11 Acetaminophen 325 Mg Tablet PO 10/01/25 01:10 Q6H PRN Fever >101.5 or pain 1-3 Allopurinol 100 mg 09/01/25 09:00 09/01/25 11:10 Allopurinol 100 Mg Tablet PO 10/01/25 08:59 100 mg QDAY GENTRY Administration Apixaban 5 mg 09/01/25 09:00 09/01/25 11:09 Apixaban 2.5 Mg Tablet PO 10/01/25 08:59 5 mg BID GENTRY Administration Atorvastatin Calcium 80 mg 09/01/25 21:00 Atorvastatin Calcium 20 Mg Tablet PO 10/01/25 20:59 HS GENTRY Clopidogrel Bisulfate 75 mg 09/01/25 09:00 09/01/25 09:38 Clopidogrel Bisulfate 75 Mg Tablet PO 10/01/25 08:59 75 mg QDAY GENTRY Administration Famotidine 20 mg 09/01/25 09:00 09/01/25 09:39 Famotidine 20 Mg Tablet PO 10/01/25 08:59 20 mg BID GENTRY Administration Metoprolol Tartrate 50 mg 09/01/25 09:00 09/01/25 09:43 Metoprolol Tartrate 25 Mg Tablet PO 10/01/25 08:59 Not Given BID GENTRY Non-Formulary Medication 7.5 mg 09/01/25 01:21 Clorazepate Dipotassium PO DAILY PRN Anxiety Protocol Ondansetron HCl 4 mg 09/01/25 01:11 Ondansetron Inj 2 Mg/Ml Inj 2 Ml IVP 10/01/25 01:10 Q6H PRN NAUSEA OR VOMITING Protocol Plan 75-year-old female with history of multiple TIAs/CVA (no residual deficits), HTN, HLD, gout, GERD, and long-standing intermittent palpitations consistent with paroxysmal atrial fibrillation, admitted under observation after Apple Watch alert and ED EKG confirmed AF with RVR. Now rate-controlled after initiation of digoxin. # Paroxysmal Atrial Fibrillation With Prior Undiagnosed Episodes Long-standing intermittent palpitations for 15+ years, normal prior EKG and 24- hr Holter Apple Watch finally detected irregular rhythm, confirmed by ED EKG. HR significantly improved to 60s after digoxin. CHADS-VASc = 4. Currently in sinus rhythm. Plan: * Continue Eliquis 5 mg BID * Continue metoprolol tartrate 50 mg BID * Started digoxin (HR now well controlled) * Maintain telemetry * Keep K >4, Mg >2 * Echocardiogram ordered; may defer given upcoming outpatient CATHLEEN on 09/04 * Outpatient cardiology follow-up (Dr. Louise) * Await in house cardiology (Dr. Adames) recommendations # Strong Family History of Stroke + Miscarriage History # Concern for Antiphospholipid Syndrome Multiple miscarriages in family (mother, possibly grandmother), patient with one miscarriage, plus recurrent TIAs/CVAs. Concern for underlying APS. Plan: * APS panel ordered: LA, anticardiolipin Ab, beta-2 glycoprotein * Continue anticoagulation * Consider hematology follow-up outpatient depending on results # History of CVAs / TIAs (No Residual Deficits) Prior right parietal and caudate infarcts Prior MCA occlusion episode No current deficits. Plan: * Continue clopidogrel 75 mg daily * Continue atorvastatin 80 mg nightly * Outpatient neurology follow-up # GERD May have triggered malaise episodes; no current symptoms. Plan: * Continue famotidine 20 mg BID * Consider restarting pantoprazole 40 mg daily if symptoms recur * GERD diet # Hypertension Currently stable on metoprolol; home losartan held. Plan: * Continue rate control * Consider resuming losartan 100 mg daily if BP trends up # Gout Plan: * Continue allopurinol 100 mg daily # Hyperlipidemia Lipid panel within normal Plan: * Continue atorvastatin 80 mg nightly Health Maintenance: Disposition: Observation Diet: Cardiac DVT Prophylaxis: Eliquis GI Prophylaxis: Famotidine Lines: PIV Activity: Ambulate as tolerated Code Status: Full code ----- Plan discussed with attending physician Dr. Radha Reeves MD PGY-1 Internal Medicine
--- NOTE | 2025-09-01 15:11 | PC.CC ---
Patient is a 75 year-old female who presents to the hospital for new onset AFIB. SYSTEMS PROGRAMMER ANALYSTMelba made [id number] contact with patient introduced self, role, and reason for visit. Patient appeared alert and oriented to self, location, and situation. SYSTEMS PROGRAMMER ANALYST, discussed limits of confidentiality. Patient made appropriate eye contact and engaged in initial assessment. ? Patient confirmed information on demographics and reports to living at home with her , Tab Dixon . Patient's medical decision maker is her in the event she is unable to make her own medical decisions. Patient stated at home she is able to ambulate independently and complete her own ADLs with no assistance. Patient does not require any DME and is not a dialysis patient. Patient's primary provider is Mazin Galvez and her pharmacy of choice is [facility]. Upon discharge patient plans to return back home. supervisor gate services to follow up with any D/C needs.
[2025-09-01] MEDS: ATORVASTATIN CALCIUM 20 MG TABLET 80 MG PO (20:37)
[2025-09-01] MEDS: METOPROLOL TARTRATE 25 MG TABLET 50 MG PO (20:37)
--- NOTE | 2025-09-01 23:19 | ESCONSULT_ITS ---
RE: MINERVA MAGDALENO : 1950 DATE OF CONSULTATION: 09/01/2025 CONSULTING PHYSICIAN: Hospitalist. REASON FOR CONSULTATION: Evaluation of atrial fibrillation, history of stroke, high CHADS-VASc score. HISTORY OF PRESENT ILLNESS: The patient is a 75-year-old pleasant lady with past medical history of multiple TIAs and 1 episode of stroke with minimal residual deficits or no residual deficits. Has been treated with aspirin and Plavix, no documented atrial fibrillation. Echocardiogram in the past when she had a stroke was negative, including transesophageal echo was negative. Also, history of hypertension, hypercholesterolemia. The patient came to the hospital because she felt her heart was possibly fast. Apple watch indicated atrial fibrillation rate of 130-140 beats per minute. Came to the hospital today. The patient appears to have atrial fibrillation, moderate rapid ventricular response. The patient converted to sinus rhythm possibly within about 18 hours from the onset of atrial fibrillation. The patient had history of admission in 11/26/2024 with acute onset of instability gait and found to have acute infarct in the right parietal lobe and right caudate nucleus. Echo at that time showed normal, negative bubble study. The patient had a complete resolution of symptoms, was placed on DAPTs since there was no embolic phenomena source detected. Subsequently, the patient came to the hospital again on 07/15/2025. 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 The patient was sent to [facility] for further management, was given medical management, she resolved. The patient was seen by Dr. Louise in [place], who apparently scheduled the patient for cardiac workup including stress test, which was not performed. The patient also had been scheduled for 7-day monitoring next week. The patient feeling lot better, her blood pressure is slightly high, remains in sinus rhythm. MEDICATIONS AT HOME: She insists she has been on blood pressure medications includin. Corgard 40 mg daily at home. 2. Aspirin 81 daily. 3. Plavix 75 mg daily. 4. Losartan 100 mg daily. 5. Pantoprazole 40 mg daily. 6. Clorazepate for anxiety. 7. Allopurinol 100 mg daily. 8. Atorvastatin 80 mg daily. PAST MEDICAL HISTORY: Hypertension,_ acid reflux. The patient says she has these atrial fibrillation episodes whenever she has acid reflux. Multiple TIAs and strokes, 1 admission requiring antithrombotic therapy. SOCIAL HISTORY: She is , lives alone, does not smoke, drink alcoholic beverages. FAMILY HISTORY: Family history is noncontributory. REVIEW OF SYSTEMS: CARDIOVASCULAR: As described earlier. GASTROINTESTINAL: No nausea, no vomiting. GENITOURINARY: No frequency, no dysuria. PHYSICAL EXAMINATION: GENERAL: Well-nourished, pleasant female, alert, awake, in no acute distress. VITAL SIGNS: Her blood pressure slightly elevated when I was examining, but subsequently normal, was only 140/80, subsequently 106/68. Heart rate is 62. Respirations 21. Temperature normal. HEENT: Head is atraumatic, normocephalic. Eyes normal. ENT normal. NECK: Supple, no JVD. Carotid pulses well felt, no bruits. CHEST: Symmetrical. LUNGS: Clear. HEART: S1 and S2 regular, now sinus rhythm. ABDOMEN: Thin and soft. EXTREMITIES: No edema. GENITOURINARY AND RECTAL: Not performed. DEPUTY COURT CLERK: Unremarkable. Electrocardiogram showed evidence of atrial fibrillation, moderate rapid ventricular response. Subsequent EKG shows sinus rhythm. Cardiac echo was reviewed by me, showed normal left ventricular function, mild ____ left atrium. IMPRESSION: 1. Paroxysmal atrial fibrillation, atrial fibrillation, rapid ventricular response requiring admission. 2. History of multiple strokes and transient ischemic attack. 3. Hypertension. 4. Acid peptic ulcer disease. 5. Hyperuricemia. RECOMMENDATION AND DISCUSSION: The patient is a 75-year-old lady with history of previous multiple strokes and TIAs, 1 definite stroke, recovered mostly, did not have any documented atrial fibrillation. Now that the patient does have documented atrial fibrillation lasting 18 hours, converted to sinus rhythm successfully, recommend the patient's clearly a CHADS- VASc score of 5, high risk for recurrent infarction. The patient should be treated with anticoagulation only with Eliquis 5 mg twice daily, no need for aspirin or Plavix. The patient also has normal left ventricular function, symptomatic with recurrent atrial fibrillation, hence would recommend giving flecainide 100 mg twice daily for atrial fibrillation and the patient will be observed overnight. If she feels well, she can be discharged home on flecainide 100 mg twice daily, continue nadolol 40 mg daily and losartan 100 mg daily and Eliquis 5 mg twice daily. Aspirin and Plavix should be discontinued, there is no indication, it does increase the risk of GI bleeding. The patient apparently did have 1 episode of peptic ulcer, but did not have any bleeding. This was confirmed by Dr. Palacios in 2023, hence I would avoid aspirin and Plavix, no indication for that whatsoever. I would like to thank for referring this patient for cardiovascular evaluation. We will be glad to follow the patient as an outpatient if she chooses to, otherwise she can follow with her own early interventionist in [place]. There is no indication for further heart monitoring since the patient has now documented atrial fibrillation, clearly her stroke is related to atrial fibrillation. DT: 22:34:45 TT: 23:17:00 Ref: [id number] - TID: [id number] [facility]ALK[facility]
[2025-09-02] VITALS: BP 132/98; PULSE 49; PULSE 50; RESP 14; TEMP 36.3; O2SAT 96
[2025-09-02 04:00] VITALS: BP 114/53; PULSE 50; PULSE 51; RESP 16; TEMP 36.6; O2SAT 97
[2025-09-02 04:43] VITALS: BMI 22.5
[2025-09-02 06:31] LABS: Basophils # (Auto) 0.0 Thou/mm3 (0.0-0.2); Basophils % (Auto) 0 % (0-2.5); Eosinophils # (Auto) 0.2 Thou/mm3 (0.0-0.5); Eosinophils % (Auto) 2 % (0-10); Hematocrit 40.1 % (36.0-46.0); Hemoglobin 13.6 g/dL (12.0-16.0); Immature Granulocytes Auto 0.01 Thou/mm3 (0.00-0.00); Lymphocytes # (Auto) 3.0 Thou/mm3 (1.0-4.8); Lymphocytes % (Auto) 35 % (10-50); Mean Corpuscular HGB Conc 33.9 g/dl (31.0-37.0); Mean Corpuscular Hemoglobin 30.8 pg (25.0-35.0); Mean Corpuscular Volume 91 fL (80-100); Monocytes # (Auto) 0.7 Thou/mm3 (0.0-0.8); Monocytes % (Auto) 8 % (0-12); Neutrophils # (Auto) 4.6 Thou/mm3 (1.8-7.7); Neutrophils % (Auto) 54 % (37-80); Nucleated Red Blood Cell # 0.00 Thou/mm3 (0.00-0.00); Nucleated Red Blood Cell % 0 /100 WBC (0); Platelet Count 279 Thou/mm3 (140-440); RDW Standard Deviation 44.4 fL (36.4-46.3); Red Blood Count 4.42 Miln/mm3 (4.00-5.20); White Blood Count 8.5 Thou/mm3 (3.6-11.0)
[2025-09-02 06:34] LABS: INR 1.1 (0.9-1.3); Partial Thromboplastin Time 27.8 Seconds (22.0-36.0); Prothrombin Time 11.7 Seconds (9.0-12.2)
[2025-09-02 06:51] LABS: Albumin, Serum 4.2 gm/dL (3.4-4.8); Anion Gap 11 (7-16); BUN/Creatinine Ratio 20 Ratio (12-20); Blood Urea Nitrogen 16 mg/dL (9-23); Calcium 9.1 mg/dL (8.3-10.6); Calcium (Corrected) 9.1 mg/dL (8.5-10.1); Carbon Dioxide 28.4 mMol/L (20.0-31.0); Chloride 107 mMol/L (98-107); Creatinine (Component) 0.8 mg/dL (0.6-1.3); Estimated Creatinine Clearance 60.0 mL/min (>60); Glucose 90 mg/dL (74-106); Magnesium 1.6 mg/dL (1.6-2.6); Osmolality,Calculated 291 (275-295); Phosphorous 3.8 mg/dL (2.4-5.1); Potassium 3.8 mMol/L (3.4-5.1); Sodium 146 mMol/L (136-145); eGFR > 60 See Note
[2025-09-02 08:00] VITALS: BP 131/63; PULSE 53; PULSE 66; RESP 17; TEMP 36.6; O2SAT 98
[2025-09-02 08:10] VITALS: BP 131/63; PULSE 66
[2025-09-02] MEDS: APIXABAN 2.5 MG TABLET 5 MG PO (08:10)
[2025-09-02] MEDS: FLECAINIDE ACET 50 MG TABLET 100 MG PO (08:10)
[2025-09-02] MEDS: MAGNESIUM OXIDE 400 MG TABLET PO (08:10)
[2025-09-02] MEDS: FAMOTIDINE 20 MG TABLET PO (08:11)
--- NOTE | 2025-09-02 10:03 | ESDS_ITS ---
<Statement entered by Annalise Garcia MD - 09/14/25 09:23> I reviewed above note and agree with findings and plans. I have also personally examined the patient with medicine team and went over assessment and plan with medical team including internet marketing executive and resident physician. Planned Discharge Date 09/02/25 DS: Providers Provider Date of admission: 09/01/25 01:11 Primary care physician: Mazin Galvez MD Admitting Provider: Eli Escobar MD Attending Provider on Admission: Eli Escobar MD Consults: 09/01/25 10:56 Consult to Cardiology Routine Comment: New vs parax AFIB Consulting Provider: Sanket Adames Attending Provider on DC: Annalise Garcia MD Discharging Provider: Steven Reeves MD DS: Diagnosis Problem List Completed Was Problem List Reviewed/Reconciled?: Yes Hospital Course Hospital Course Hospital course: 75-year-old female with past medical history of multiple TIAs/CVA (no residual deficits), hypertension, hyperlipidemia, gout, and GERD was admitted for evaluation and management of atrial fibrillation after her Apple Watch detected an irregular rhythm with heart rates in the 130?140s. On arrival she was found to be in atrial fibrillation with rapid ventricular response. She remained hemodynamically stable and converted back to sinus rhythm within approximately 18 hours. Initial rate control with metoprolol was attempted, and anticoagulation was continued with Eliquis due to her high thromboembolic risk. Cardiology was consulted and determined that her rhythm pattern and history were consistent with paroxysmal atrial fibrillation, not new onset, given her 15+ year history of intermittent palpitations. She was started on flecainide 100 mg twice daily for rhythm control. Her prior dual antiplatelet therapy (aspirin and Plavix) was discontinued as there was no further indication and it increased bleeding risk. Her heart rate stabilized in the 50s?60s without symptoms, and flecainide was well tolerated. Due to her history of recurrent TIAs/CVA, strong family history of strokes, and her report of a past miscarriage along with maternal miscarriages, a hypercoagulable workup for antiphospholipid syndrome (APS) was initiated. RADHA, anticardiolipin antibodies, beta-2 glycoprotein, and lupus anticoagulant are pending at discharge. The patient remained clinically stable, in sinus rhythm, denied chest pain, dyspnea, or neurologic symptoms, and was tolerating oral medications and diet. She is medically optimized for outpatient follow-up. Diagnosis during admission: # Paroxysmal Atrial Fibrillation With Prior Undiagnosed Episodes # Strong Family History of Stroke + Miscarriage History # Concern for Antiphospholipid Syndrome # History of CVAs / TIAs (No Residual Deficits) # GERD # Hypertension # Gout # Hyperlipidemia Dishcarge Instructions: -Follow up with your theoretical physics teacher on Tuesday 09/04 as scheduled. -Start flecainide 100 mg twice daily. -Continue Eliquis 5 mg twice daily. -Stop aspirin and stop Plavix, no longer needed. -Continue your home meds: losartan, nadolol, pantoprazole, allopurinol, atorvastatin. -Anti Phospholipid Syndrome (clotting disorder) labs are pending, follow up with PCP with results. -Return to the ER for chest pain, shortness of breath, fast heartbeat, passing out, severe dizziness, weakness, or any bleeding. -Resume normal activity as tolerated and follow a cardiac-friendly diet. ----- Plan discussed with attending physician Dr. Radha Reeves MD PGY-1 Internal Medicine Time Spent with Patient Time attestation: Total time spent providing and/or coordinating discharge services: Time spent: Greater than 30 minutes Exam Vital Signs Temp Pulse Resp BP Pulse Ox O2 Del Method 97.8 F 66 17 131/63 H 98 Room Air 09/02/25 08:00 09/02/25 08:10 09/02/25 08:00 09/02/25 08:10 09/02/25 08:00 09/02/25 08:00 Narrative Exam Physical Exam: General: Alert, no acute distress. Skin: Warm, dry, intact. Head: Normocephalic, atraumatic. Eye: Normal conjunctiva, PERRL. Throat: Oral mucosa moist. No obvious lesions in oropharynx. Cardiovascular: Regular rate and regular rhythm, no murmur, +S1/S2. Respiratory: Lungs are clear to auscultation, respirations unlabored, no crackles, no wheezing. Gastrointestinal: Soft, nontender, non-distended. No guarding or rebound tenderness. Extremities: No edema, no cyanosis, no clubbing. 2+ radial pulse bilaterally, 2+ pedal pulse bilaterally. Neuro: No focal deficits observed. Conversant, moving all extremities. No overt cerebellar signs/incoordination. Psychiatric: Cooperative, appropriate affect. Discharge Plan Plan Patient Disposition: HOME (Self Care) Patient condition on transfer: Stable Care Plan Goals: Dishcarge Instructions: -Follow up with your theoretical physics teacher on Tuesday 09/04 as scheduled. -Start flecainide 100 mg twice daily. -Continue Eliquis 5 mg twice daily. -Stop aspirin and stop Plavix, no longer needed. -Continue your home meds: losartan, nadolol, pantoprazole, allopurinol, atorvastatin. -Anti Phospholipid Syndrome (clotting disorder) labs are pending, follow up with PCP with results. -Return to the ER for chest pain, shortness of breath, fast heartbeat, passing out, severe dizziness, weakness, or any bleeding. -Resume normal activity as tolerated and follow a cardiac-friendly diet. Prescriptions/Referrals Prescriptions/Med Rec: New Eliquis 5 mg tablet 5 mg PO BID Qty: 60 0RF flecainide 100 mg tablet 100 mg PO Q12H Qty: 60 0RF Continued nadolol 40 mg tablet 40 mg PO QDAY allopurinol 100 mg tablet 100 mg PO QDAY Patient Comments: TAKE 1 TABLET BY MOUTH EVERY DAY losartan 100 mg tablet 100 mg PO QDAY Patient Comments: TAKE 1 TABLET BY MOUTH EVERY DAY atorvastatin 20 mg tablet 80 mg PO HS Patient Comments: TAKE 1 TABLET BY MOUTH EVERY DAY pantoprazole 40 mg tablet,delayed release (DR/EC) 40 mg PO QDAY Patient Comments: TAKE 1 TABLET BY MOUTH EVERY DAY famotidine 20 mg tablet 20 mg PO BID Patient Comments: TAKE 1 TABLET BY MOUTH TWICE A DAY FOR 90 DAYS clorazepate dipotassium 7.5 mg tablet 7.5 mg PO DAILY PRN (Reason: Anxiety) Patient Comments: TAKE 1 TABLET BY MOUTH EVERY DAY FOR 90 DAYS Discontinued clopidogrel [Plavix] 75 mg tablet 75 mg PO QDAY Qty: 90 0RF aspirin 81 mg tablet,delayed release (DR/EC) 81 mg PO QDAY Patient Comments: TAKE 1 TABLET BY MOUTH EVERY DAY FOR 21 DAYS Referrals: Mazin Galvez MD [Primary Care Provider, Family Practice] Patient/Caregiver Discharge Instructions Education Materials: AFL/Afib, Hypertension Dc, ED Atrial Fibrillation, ED Hypertension, Established Print Language: Sinhala Stand Alone Forms: Naty Award Info., Patient Portal Info Letter, Work/Release Restrictions Discharge Order Discharge Orders: Discharge (Routine); Ordered 09/02/25 Ordered By: Steven Reeves Quality Discharge Quality Measures VTE prophylaxis
[2025-09-02 12:00] VITALS: BP 119/60; PULSE 59; PULSE 69; RESP 18; TEMP 36.6; O2SAT 98
[2025-09-06 13:49] LABS: Cardiolipin Ab IgA <2.0 APL-U/mL; Cardiolipin Ab IgG <2.0 GPL-U/mL
[2025-09-09 06:35] LABS: ANA Screen, IFA NEGATIVE (NEGATIVE); B2-Glycoprotein I Ab IgA <2.0 U/mL; B2-Glycoprotein I Ab IgG <2.0 U/mL; B2-Glycoprotein I Ab IgM <2.0 U/mL; Cardiolipin Ab IgM <2.0 MPL-U/mL; Phos.Serine Ab IgG 11 U (< OR = 30); Phos.Serine Ab IgM 9 U (< OR = 30)
[2025-09-11 10:30] LABS: B2-Glycoprotein I Ab IgA DUPLICATE ORDER; B2-Glycoprotein I Ab IgG DUPLICATE ORDER; B2-Glycoprotein I Ab IgM DUPLICATE ORDER
== END 2025-09-02 13:17 | disposition home or self-care (01) ==
LOC: SERX 22:05 → SERHOLD 09-01 01:45 → S2NX 09-02 06:35
PROVIDERS: Admitting Provider Student in an Organized Health Care Education/Training Program; Emergency Provider Emergency Medicine; PCP Family Medicine; Visit Provider Student in an Organized Health Care Education/Training Program
DX: I48.0 Paroxysmal atrial fibrillation (principal); Z82.3 Family history of stroke; K21.9 Gastro-esophageal reflux disease without esophagitis; I10 Essential (primary) hypertension; M10.9 Gout, unspecified
CPT/HCPCS: 36415; 71045; 80053; 80061; 80069; 81001; 83036; 83735; 83880; 84439; 84443; 84484; 85025; 85610; 85613; 85730; 86038; 86146; 86147; 86148; 93005; 93306; 96374; 96376; 99284; G0378; J3490; A9270

== ENCOUNTER 2025-09-13 22:31 | Emergency (ER) | payer MEDICARE, SELFPAY ==
[2025-09-13 22:34] VITALS: BMI 22.4
[2025-09-13 22:45] VITALS: BP 67/37; PULSE 44; RESP 18; O2SAT 96
--- NOTE | 2025-09-13 22:55 | EKG_ITS ---
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
[2025-09-13 22:57] VITALS: BP 110/51; PULSE 45; PULSE 488; RESP 14; O2SAT 96
--- NOTE | 2025-09-13 23:11 | PD.EDDIZZY ---
ED Dizzyness RME/HPI General Chief Complaint: General Adult/Misc Complain Stated Complaint: ACCIDENTALY TOOK BP MED TWICE LOW BP Time Seen by Provider: 09/13/25 22:57 Arrival date/time: 09/13/25 22:31 RME / HPI RME / HPI Narrative: DR. 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 Medication bottle sat amongst the rest of her current medications. Patient is currently on Flecainide 100 mg twice a day, Amlodipine 2.5 mg once a day, Nadolol 40 mg once a day, and Losartan 100 twice a day. Patient reports her heart rate is normally between 49-51 bpm. She was diagnosed with new onset atrial fibrillation 11 days ago in ED. No other complaints. Related Data Home Medications ?Medication ?Instructions ?Recorded ?Confirmed clorazepate dipotassium 7.5 mg 7.5 mg PO DAILY PRN Anxiety 10/26/23 09/01/25 tablet famotidine 20 mg tablet 20 mg PO BID 10/26/23 09/01/25 allopurinol 100 mg tablet 100 mg PO QDAY 09/01/25 09/01/25 atorvastatin 20 mg tablet 80 mg PO HS 09/01/25 09/01/25 losartan 100 mg tablet 100 mg PO QDAY 09/01/25 09/01/25 nadolol 40 mg tablet 40 mg PO QDAY 09/01/25 09/01/25 pantoprazole 40 mg tablet,delayed 40 mg PO QDAY 09/01/25 09/01/25 release Previous Rx's ?Medication ?Instructions ?Recorded apixaban 5 mg tablet (Eliquis) 5 mg PO BID #60 tabs 09/02/25 flecainide 100 mg tablet 100 mg PO Q12H #60 tabs 09/02/25 Allergies Allergy/AdvReac Type Severity Reaction Status Date / Time shellfish derived Allergy Severe Hives Verified 09/13/25 22:40 Sulfa (Sulfonamide Allergy Severe Hives Verified 09/13/25 22:40 Antibiotics) Review of Systems Review of Systems Systems Reviewed: All systems reviewed, normal except as documented Past Medical History Past Medical History NEUROLOGIC: Positive Cerebrovascular Accident (x3) and Migraine CARDIAC: Positive Cardiac Disorders, Hypercholesterolemia, Hypertension and Hypotension RESPIRATORY: Positive Pneumonia GASTROINTESTINAL: Positive Gastrointestinal Disorders, Ulcer and Gastroesophageal Reflux Disease GENITOURINARY: Positive Kidney Stones REPRODUCTIVE: Positive Previous Pregnancies MUSCULOSKELETAL: Positive Musculoskeletal Disorders, Arthritis, Gout and Fractures PSYCHO/SOCIAL: Positive Anxiety OTHER HISTORY: Positive Falls, Chicken Pox, Measles and Mumps Family History FAMILY HISTORY: Positive Family Cardiac Disorders Surgical History SURGICAL: Positive Nose Surgery, Abdominal Surgery and Tubal Ligation ED Exam Narrative Physical exam: Generally patient is alert and in no obvious distress heart bradycardic rate with regular rhythm, lungs clear to auscultation equal bilaterally, abdomen soft bowel sounds present nondistended nontender, neurologic exam [place] Coma Scale is 15 without focal motor deficit Course Quality Measures none Orders Category Date Time Status [employer] Supervisor Q4H START 00 Care 09/13/25 22:55 Active EKG (ED ONLY) *Do not use* NOW Care 09/13/25 22:55 Completed EKG (ED ONLY) *Do not use* NOW Care 09/13/25 23:13 Completed Insert IV NOW Care 09/13/25 22:55 Active EKG (ED Only) Stat Exams 09/13/25 22:55 Draft EKG (ED Only) Stat Exams 09/13/25 23:13 Ordered CBC Stat Lab 09/13/25 23:28 Completed CMP [Comprehensive Metabolic Panel] Stat Lab 09/13/25 23:28 Completed Sodium Chloride 0.9% 1000 ml [Ns] 1,000 ml Med 09/13/25 23:10 Active IV 999 mls/hr Vital Signs Vital signs: Vital Signs Pulse Rate 44 L 09/13/25 22:45 Respiratory Rate 18 09/13/25 22:45 Blood Pressure 67/37 L 09/13/25 22:45 Pulse Oximetry (%) 96 09/13/25 22:45 Oxygen Delivery Method Room Air 09/13/25 22:45 Dizziness MDM Narrative MDM Narrative:: Scribe Attestation: Yu Chew, mara scribing for and in the presence of Dr. Magdaleno. Provider Notation: Although this document has been carefully reviewed, there may still be some phonetic and other typographical errors. These errors are purely grammatical due to imperfections in the software program and should not be construed in any way to compromise the substance of the patient's medical care during this visit. Patient states that her heart rate is normally in the 40s and 50s so that is not unusual for her tonight. Patient took the Zanaflex and that made her hypotensive. The hypotension self corrected here in the emergency room to a systolic of 112 but despite that the patient still was given 1 L of IV normal saline which helped sustain the blood pressure. Potassium is normal. EKG shows sinus bradycardia at a rate of 44 without ischemic change. I believe the patient's episode of hypotension to be due to medication effect. Patient is on flecainide as well as nadolol and a small dose of amlodipine at 2-1/2 mg once a day. At this time she may continue those medications. She was recently hospitalized here approximately a week and a half ago for new onset atrial fibrillation. Patient was not in atrial fibrillation during the ER stay. Patient was hemodynamically stable throughout the ER stay. Patient data External records reviewed:: [facility] previous records (Reviewed prior ED records from 08/31/25. Patient was seen for New onset a-fib.) Clinical information provided by:: patient Social determinants that could affect healthcare access:: none Patient has the following chronic illnesses:: Migraine, Hypercholesterolemia, Hypertension, Hypotension, Ulcer, Gastroesophageal Reflux Disease, Kidney Stones, Arthritis, Gout, Anxiety How is presenting disease/condition affected by chronic disease/condition?: exacerbated by Evaluation data The following diagnostics were reviewed and interpreted by me:: lab results and EKG tracing(s) Lab and/or radiology exams considered but not ordered:: None Interpretation Summary: See MDM above. Medications / Prescriptions Medications or Prescriptions considered but not ordered:: None Medication administrations:: Medication Administration History Sodium Chloride (Ns) 1,000 mls @ 999 mls/hr IV .Q1H1M ONE Stop: 09/14/25 00:10 Last Admin: 09/13/25 23:20 Dose: 999 mls/hr Documented By: BR See above if any. Consultations Consultation(s) initiated? (list below): No Diagnosis Dizziness Differential Diagnosis: adverse reaction to drug, orthostatic hypotension, vertebral basilar insufficiency, cerebrovascular accident and transient cerebral ischemia Most likely diagnosis given after review of the tests above:: None Admission Indicated Admission indicated?: not indicated Admission Request Was there a request for admission?: No Disposition Plan Disposition Plan: Discharge Discharge Attestation Discharge Attestation: The patient and all family members were given an opportunity to ask questions and understood the discharge instructions. Discharge instructions specifically effects, indications for sooner follow up or return to the emergency department, and the expected course of current diagnosis. Patient condition: Stable Discharge Plan Plan Patient Disposition: HOME (Self Care) Prescriptions/Referrals Prescriptions/Med Rec: No Action nadolol 40 mg tablet 40 mg PO QDAY allopurinol 100 mg tablet 100 mg PO QDAY Patient Comments: TAKE 1 TABLET BY MOUTH EVERY DAY losartan 100 mg tablet 100 mg PO QDAY Patient Comments: TAKE 1 TABLET BY MOUTH EVERY DAY atorvastatin 20 mg tablet 80 mg PO HS Patient Comments: TAKE 1 TABLET BY MOUTH EVERY DAY pantoprazole 40 mg tablet,delayed release (DR/EC) 40 mg PO QDAY Patient Comments: TAKE 1 TABLET BY MOUTH EVERY DAY Eliquis 5 mg tablet 5 mg PO BID Qty: 60 0RF flecainide 100 mg tablet 100 mg PO Q12H Qty: 60 0RF famotidine 20 mg tablet 20 mg PO BID Patient Comments: TAKE 1 TABLET BY MOUTH TWICE A DAY FOR 90 DAYS clorazepate dipotassium 7.5 mg tablet 7.5 mg PO DAILY PRN (Reason: Anxiety) Patient Comments: TAKE 1 TABLET BY MOUTH EVERY DAY FOR 90 DAYS Referrals: No Primary/Family,Physician [Primary Care Provider] - In 1 week Problem List Clinical Impression: Hypotension, Adverse effects of medication Patient/Caregiver Discharge Instructions Education Materials: ED Drug Reaction, Other Additional Instructions: Take medication only as prescribed. Keep well-hydrated. Follow-up with your doctor. Return to ER as needed or if condition worsens. Print Language: Austrian Stand Alone Forms: Naty Award Info., Patient Portal Info Letter
[2025-09-13] MEDS: SODIUM CHLORIDE 0.9% 1000 ML 1,000 ML 999 ML IV (23:20)
[2025-09-13 23:43] LABS: Basophils # (Auto) 0.0 Thou/mm3 (0.0-0.2); Basophils % (Auto) 0 % (0-2.5); Eosinophils # (Auto) 0.2 Thou/mm3 (0.0-0.5); Eosinophils % (Auto) 2 % (0-10); Hematocrit 37.1 % (36.0-46.0); Hemoglobin 11.9 g/dL (12.0-16.0); Immature Granulocytes Auto 0.02 Thou/mm3 (0.00-0.00); Lymphocytes # (Auto) 2.8 Thou/mm3 (1.0-4.8); Lymphocytes % (Auto) 32 % (10-50); Mean Corpuscular HGB Conc 32.1 g/dl (31.0-37.0); Mean Corpuscular Hemoglobin 30.1 pg (25.0-35.0); Mean Corpuscular Volume 94 fL (80-100); Monocytes # (Auto) 0.8 Thou/mm3 (0.0-0.8); Monocytes % (Auto) 10 % (0-12); Neutrophils # (Auto) 4.9 Thou/mm3 (1.8-7.7); Neutrophils % (Auto) 57 % (37-80); Nucleated Red Blood Cell # 0.00 Thou/mm3 (0.00-0.00); Nucleated Red Blood Cell % 0 /100 WBC (0); Platelet Count 242 Thou/mm3 (140-440); RDW Standard Deviation 46.4 fL (36.4-46.3); Red Blood Count 3.95 Miln/mm3 (4.00-5.20); White Blood Count 8.7 Thou/mm3 (3.6-11.0)
[2025-09-13 23:56] LABS: Alanine Aminotransferase 12 U/L (10-49); Albumin, Serum 3.9 gm/dL (3.4-4.8); Albumin/Globulin Ratio 2.2 (1.2-2.2); Alkaline Phosphatase 80 U/L (46-116); Anion Gap 8 (7-16); Aspartate Amino Transferase 20 U/L (0-34); BUN/Creatinine Ratio 23 Ratio (12-20); Bilirubin,Total 0.3 mg/dL (0.3-1.2); Blood Urea Nitrogen 23 mg/dL (9-23); Calcium 8.4 mg/dL (8.3-10.6); Calcium (Corrected) 8.5 mg/dL (8.5-10.1); Carbon Dioxide 27.2 mMol/L (20.0-31.0); Chloride 109 mMol/L (98-107); Creatinine (Component) 1.0 mg/dL (0.6-1.3); Estimated Creatinine Clearance 48.0 mL/min (>60); Globulin 1.8 gm/dL (2.3-3.5); Glucose 130 mg/dL (74-106); Osmolality,Calculated 292 (275-295); Potassium 4.1 mMol/L (3.4-5.1); Sodium 144 mMol/L (136-145); Total Protein 5.7 gm/dL (5.7-8.2); eGFR 59 See Note
[2025-09-14 00:29] VITALS: BP 151/53; PULSE 48; RESP 16; O2SAT 100
== END 2025-09-14 00:54 | disposition home or self-care (01) ==
PROVIDERS: Emergency Provider Emergency Medicine
DX: T42.8X1A Poisoning by antiparkinsonism drugs and other central muscle-tone depressants, accidental (unintentional), initial encounter (principal); I95.9 Hypotension, unspecified; R00.1 Bradycardia, unspecified; I45.89 Other specified conduction disorders; I10 Essential (primary) hypertension; E78.00 Pure hypercholesterolemia, unspecified; Z79.01 Long term (current) use of anticoagulants
CPT/HCPCS: 36415; 80053; 85025; 93005; 96360; 99284; J7030

== ENCOUNTER 2025-09-17 22:27 | Emergency (ER) | payer MEDICARE, SELFPAY ==
[2025-09-17 22:30] VITALS: BMI 22.4
--- NOTE | 2025-09-17 22:30 | EKG_ITS ---
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
[2025-09-17 22:43] VITALS: BP 193/77; PULSE 49; RESP 16; TEMP 36.6; O2SAT 97
--- NOTE | 2025-09-17 23:04 | PD.EDHA ---
ED Headache RME/HPI General Chief Complaint: General Adult/Misc Complain Stated Complaint: HIGH BLOOD PRESSURE Time Seen by Provider: 09/17/25 23:11 Arrival date/time: 09/17/25 22:27 RME / HPI RME / HPI Narrative: See [facility] for Dr. Lugo's HPI Documentation. Related Data Home Medications ?Medication ?Instructions ?Recorded ?Confirmed clorazepate dipotassium 7.5 mg 7.5 mg PO DAILY PRN Anxiety 10/26/23 09/01/25 tablet famotidine 20 mg tablet 20 mg PO BID 10/26/23 09/01/25 allopurinol 100 mg tablet 100 mg PO QDAY 09/01/25 09/01/25 atorvastatin 20 mg tablet 80 mg PO HS 09/01/25 09/01/25 losartan 100 mg tablet 100 mg PO QDAY 09/01/25 09/01/25 nadolol 40 mg tablet 40 mg PO QDAY 09/01/25 09/01/25 pantoprazole 40 mg tablet,delayed 40 mg PO QDAY 09/01/25 09/01/25 release Previous Rx's ?Medication ?Instructions ?Recorded apixaban 5 mg tablet (Eliquis) 5 mg PO BID #60 tabs 09/02/25 flecainide 100 mg tablet 100 mg PO Q12H #60 tabs 09/02/25 clonidine HCl 0.1 mg tablet 0.1 mg PO BID #60 tabs 09/18/25 Allergies Allergy/AdvReac Type Severity Reaction Status Date / Time shellfish derived Allergy Severe Hives Verified 09/17/25 22:28 Sulfa (Sulfonamide Allergy Severe Hives Verified 09/17/25 22:28 Antibiotics) Review of Systems Review of Systems Systems Reviewed: All systems reviewed, normal except as documented Past Medical History Past Medical History NEUROLOGIC: Positive Neurological Disorders, Cerebrovascular Accident (x3) and Migraine CARDIAC: Positive Cardiac Disorders, Hypercholesterolemia, Hypertension and Hypotension RESPIRATORY: Positive Pneumonia GASTROINTESTINAL: Positive Gastrointestinal Disorders, Ulcer and Gastroesophageal Reflux Disease GENITOURINARY: Positive Kidney Stones REPRODUCTIVE: Positive Previous Pregnancies MUSCULOSKELETAL: Positive Musculoskeletal Disorders, Arthritis, Gout and Fractures PSYCHO/SOCIAL: Positive Anxiety OTHER HISTORY: Positive Falls, Chicken Pox, Measles and Mumps Family History FAMILY HISTORY: Positive Family Cardiac Disorders Surgical History SURGICAL: Positive Nose Surgery, Abdominal Surgery and Tubal Ligation ED Exam Narrative Physical exam: See MDM for Dr. Lugo's Physical Exam Documentation. Course Quality Measures none Orders Category Date Time Status Bedside COVID-19 Antigen Test NOW Care 09/17/25 23:13 Completed Bedside Influenza A&B Antigen Test NOW Care 09/17/25 23:13 Completed EKG (ED ONLY) *Do not use* NOW Care 09/17/25 22:30 Completed EKG (ED ONLY) *Do not use* NOW Care 09/17/25 23:14 Completed Saline [Insert IV] NOW Care 09/17/25 23:[address] head/brain wo con Stat Exams 09/17/25 23:14 Completed EKG (ED Only) Stat Exams 09/17/25 22:30 Draft EKG (ED Only) Stat Exams 09/17/25 23:14 Draft XR chest 1V portable Stat Exams 09/17/25 23:14 Completed BNP [B-Type Natriuretic Peptide] Stat Lab 09/17/25 23:29 Completed Bilirubin,Direct Stat Lab 09/17/25 23:29 Completed CBC Stat Lab 09/17/25 23:29 Completed CMP [Comprehensive Metabolic Panel] Stat Lab 09/17/25 23:29 Completed CRP [C-Reactive Protein] Stat Lab 09/17/25 23:29 Completed ESR [Sed Rate (ESR)] Stat Lab 09/17/25 23:29 Completed Hemoglobin A1C [Glycohemoglobin w (eAG)] Stat Lab 09/17/25 23:29 Completed Magnesium Stat Lab 09/17/25 23:29 Completed Procalcitonin Stat Lab 09/17/25 23:29 Completed Troponin I Stat Lab 09/17/25 23:29 Completed UA, C/S IF [Urinalysis, C/S if Indicated] Stat Lab 09/18/25 00:04 Completed hydrALAZINE INJ [Apresoline Inj] Med 09/17/25 23:13 Discontinued 10 mg IVP X1 ONE Vital Signs Vital signs: Vital Signs Temperature 97.9 F 09/17/25 22:43 Pulse Rate 49 L 09/17/25 22:43 Respiratory Rate 16 09/17/25 22:43 Blood Pressure 193/77 H 09/17/25 22:43 Pulse Oximetry (%) 97 09/17/25 22:43 Oxygen Delivery Method Room Air 09/17/25 22:43 Headache MDM Narrative MDM Narrative:: This section includes all my notes and documentations, including HPI, PE, and ED course. Jayjay Lugo MD HPI: 75 y/o female with Hx of HTN, HLD, CVA, and Atrial fibrillation here with headache, dizziness, and high BP (SBP > 200). No other complaints. ROS: All negative except as documented in HPI. Physical Exam: General: Alert and oriented. No acute distress when remaining still. High BP noted. Eyes: Conjunctivae and lids clear. EOMI. PERRL. ENT: No nasal congestion. Neck: Supple. No carotid bruit. No JVD. Heart: RRR. Lungs: No respiratory distress. Good air movement. No rhonchi, wheezing, rales. Abdomen: Soft and nontender. Skin: Warm and dry. Neuro: Alert and oriented X 3. CN 2-12 grossly normal. No peripheral motor deficits. I reviewed all diagnostic test results: My interpretation of the EKG is: Sinus rhythm (50 bpm) with nonspecific ST-T changes. My interpretation of the CXR is NAD. My review of the head CT report is NAD. Blood/urine tests unremarkable. Covid/Influenza: Negative. At this point, diagnoses include: Hypertension Treatment here included: Hydralazine 10 mg IV Significant improvement noted. Recommended a trial of outpatient treatment. Based on my best medical judgment, made decision no further evaluation or treatment indicated at this time. Patient understands and agrees to the discharge instructions customized and printed, see below. Discharge Instructions from Dr. Lugo printed for you: 1. Fortunately, there is no evidence of organ damage from your high BP. There is no stroke or heart attack. 2. But we need to lower your BP to prevent future heart attacks and strokes. Take Clonidine 0.1 mg pill(s) every 12 hours as needed based on SBP (higher number of BP). SBP > 140, take one pill. SBP > 160, take two pills. SBP > 180, take three pills. SBP > 200, take four pills. Until you are seen by your private doctor. 3. See your private doctor on 09/20/2025 for recheck and further care. Ask to review all test results and official radiology reports, to make sure you receive all necessary follow-ups and monitoring. 4. Seek immediate medical care with worsening or with any concerns. Jayjay Lugo MD Patient data External records reviewed:: [facility] previous records (Reviewed prior ED records from 09/13/25. Patient was seen for Adverse effects of medication.) Clinical information provided by:: patient Social determinants that could affect healthcare access:: none Patient has the following chronic illnesses:: Migraine, Hypercholesterolemia, Hypertension, Hypotension, Ulcer, Gastroesophageal Reflux Disease, Kidney Stones, Arthritis, Gout, Anxiety How is presenting disease/condition affected by chronic disease/condition?: exacerbated by Evaluation data The following diagnostics were reviewed and interpreted by me:: EKG tracing(s) (My interpretation of the EKG is: Sinus rhythm (50 bpm) with nonspecific ST-T changes. Jayjay Lugo MD) Lab and/or radiology exams considered but not ordered:: None Interpretation Summary: I reviewed all diagnostic test results: My interpretation of the EKG is: Sinus rhythm (50 bpm) with nonspecific ST-T changes. My interpretation of the CXR is NAD. My review of the head CT report is NAD. Blood/urine tests unremarkable. Covid/Influenza: Negative. Medications / Prescriptions Medications or Prescriptions considered but not ordered:: None Medication administrations:: Medication Administration History Discontinued Medications Hydralazine HCl (Hydralazine Inj 20 Mg/Ml Vial) 10 mg IVP X1 ONE Stop: 09/17/25 23:14 Last Admin: 09/17/25 23:58 Dose: 10 mg Documented By: Treatment here included: Hydralazine 10 mg IV Consultations Consultation(s) initiated? (list below): No Diagnosis Differential diagnosis headache: migraine, tension headache, subarachnoid hemorrhage, headache, sinusitis and other (Influenza, COVID, Hypertension) Most likely diagnosis given after review of the tests above:: Hypertension Admission Indicated Admission indicated?: not indicated Explain why admission is indicated or not indicated:: With significant improvement and no condition needing emergent intervention, there was no indication for admission. Admission Request Was there a request for admission?: No Disposition Plan Disposition Plan: Discharge Discharge Attestation Discharge Attestation: The patient and all family members were given an opportunity to ask questions and understood the discharge instructions. Discharge instructions specifically effects, indications for sooner follow up or return to the emergency department, and the expected course of current diagnosis. Patient condition: Stable Discharge Plan Plan Patient Disposition: HOME (Self Care) Prescriptions/Referrals Prescriptions/Med Rec: New clonidine HCl 0.1 mg tablet 0.1 mg PO BID Qty: 60 0RF No Action nadolol 40 mg tablet 40 mg PO QDAY allopurinol 100 mg tablet 100 mg PO QDAY Patient Comments: TAKE 1 TABLET BY MOUTH EVERY DAY losartan 100 mg tablet 100 mg PO QDAY Patient Comments: TAKE 1 TABLET BY MOUTH EVERY DAY atorvastatin 20 mg tablet 80 mg PO HS Patient Comments: TAKE 1 TABLET BY MOUTH EVERY DAY pantoprazole 40 mg tablet,delayed release (DR/EC) 40 mg PO QDAY Patient Comments: TAKE 1 TABLET BY MOUTH EVERY DAY Eliquis 5 mg tablet 5 mg PO BID Qty: 60 0RF flecainide 100 mg tablet 100 mg PO Q12H Qty: 60 0RF famotidine 20 mg tablet 20 mg PO BID Patient Comments: TAKE 1 TABLET BY MOUTH TWICE A DAY FOR 90 DAYS clorazepate dipotassium 7.5 mg tablet 7.5 mg PO DAILY PRN (Reason: Anxiety) Patient Comments: TAKE 1 TABLET BY MOUTH EVERY DAY FOR 90 DAYS Problem List Clinical Impression: Hypertension Patient/Caregiver Discharge Instructions Discharge Activity: activity as tolerated Education Materials: ED Hypertension, Established Additional Instructions: Discharge Instructions from Dr. Lugo printed for you: 1. Fortunately, there is no evidence of organ damage from your high BP. There is no stroke or heart attack. 2. But we need to lower your BP to prevent future heart attacks and strokes. Take Clonidine 0.1 mg pill(s) every 12 hours as needed based on SBP (higher number of BP). SBP > 140, take one pill. SBP > 160, take two pills. SBP > 180, take three pills. SBP > 200, take four pills. Until you are seen by your private doctor. 3. See your private doctor on 09/20/2025 for recheck and further care. Ask to review all test results and official radiology reports, to make sure you receive all necessary follow-ups and monitoring. 4. Seek immediate medical care with worsening or with any concerns. Print Language: Norwegian Stand Alone Forms: [employer] Award Info., Patient Portal Info Letter
--- NOTE | 2025-09-17 23:14 | EKG_ITS ---
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
--- NOTE | 2025-09-17 23:14 | XR_ITS ---
EXAMINATION: AP chest single view TECHNIQUE: AP portable upright chest single view Date and time: September 17, 2025, 11:28 p.m. INDICATIONS: Shortness of breath today. FINDINGS: Normal heart size Minimal accentuation basilar bronchovascular markings. No lobar pneumonia or pulmonary edema Moderate osteopenia IMPRESSION: No pneumonia or pulmonary edema
--- NOTE | 2025-09-17 23:14 | XR_ITS ---
Examination: CT brain head without contrast. 2-D sagittal coronal reconstructions Date and time of exam: September 17, 2025, 1146 hours INDICATIONS: Headache dizziness high blood pressure today CTDI: vol (mGy): 46.5 DLP: (mGycm): 892 Technique: Multiple CT axial sections of the brain have been obtained, 5 mm slice thickness. Contrast has not been administered. 2-D sagittal, coronal reconstructions have been obtained Low dose protocols were performed. One or more of the following dose reduction techniques were used; automated exposure control, adjustment of the mA and/or KV according to patient size, use of iterative reconstruction technique. Findings: No significant ventricular enlargement. Intra-axial or extra-axial hemorrhage density is not seen. No mass effect or midline shift Basal cisterns are not remarkable. Fourth ventricle is midline. Cranial vault intact. Impression: Negative for acute hemorrhage, mass effect or midline shift Advise clinical correlation and follow-up accordingly
[2025-09-17 23:37] LABS: Basophils # (Auto) 0.1 Thou/mm3 (0.0-0.2); Basophils % (Auto) 1 % (0-2.5); Eosinophils # (Auto) 0.2 Thou/mm3 (0.0-0.5); Eosinophils % (Auto) 2 % (0-10); Hematocrit 41.1 % (36.0-46.0); Hemoglobin 13.5 g/dL (12.0-16.0); Immature Granulocytes Auto 0.02 Thou/mm3 (0.00-0.00); Lymphocytes # (Auto) 3.1 Thou/mm3 (1.0-4.8); Lymphocytes % (Auto) 30 % (10-50); Mean Corpuscular HGB Conc 32.8 g/dl (31.0-37.0); Mean Corpuscular Hemoglobin 30.4 pg (25.0-35.0); Mean Corpuscular Volume 93 fL (80-100); Monocytes # (Auto) 0.8 Thou/mm3 (0.0-0.8); Monocytes % (Auto) 8 % (0-12); Neutrophils # (Auto) 6.1 Thou/mm3 (1.8-7.7); Neutrophils % (Auto) 59 % (37-80); Nucleated Red Blood Cell # 0.00 Thou/mm3 (0.00-0.00); Nucleated Red Blood Cell % 0 /100 WBC (0); Platelet Count 267 Thou/mm3 (140-440); RDW Standard Deviation 47.0 fL (36.4-46.3); Red Blood Count 4.44 Miln/mm3 (4.00-5.20); White Blood Count 10.3 Thou/mm3 (3.6-11.0)
[2025-09-17 23:51] LABS: Sed Rate (ESR) 11 mm/hr (0-30)
[2025-09-17 23:52] LABS: B-Type Natriuretic Peptide 258 pg/mL (0-100)
[2025-09-17 23:54] LABS: Alanine Aminotransferase 25 U/L (10-49); Albumin, Serum 4.6 gm/dL (3.4-4.8); Albumin/Globulin Ratio 2.1 (1.2-2.2); Alkaline Phosphatase 94 U/L (46-116); Anion Gap 10 (7-16); Aspartate Amino Transferase 29 U/L (0-34); BUN/Creatinine Ratio 17 Ratio (12-20); Bilirubin,Direct 0.1 mg/dL (0.0-0.3); Bilirubin,Total 0.4 mg/dL (0.3-1.2); Blood Urea Nitrogen 15 mg/dL (9-23); C-Reactive Protein < 0.5 mg/dL (0.0-0.9); Calcium 9.3 mg/dL (8.3-10.6); Calcium (Corrected) 9.3 mg/dL (8.5-10.1); Carbon Dioxide 27.3 mMol/L (20.0-31.0); Chloride 110 mMol/L (98-107); Creatinine (Component) 0.9 mg/dL (0.6-1.3); Estimated Creatinine Clearance 53.3 mL/min (>60); Globulin 2.2 gm/dL (2.3-3.5); Glucose 109 mg/dL (74-106); Magnesium 1.8 mg/dL (1.6-2.6); Osmolality,Calculated 294 (275-295); Potassium 3.7 mMol/L (3.4-5.1); Sodium 147 mMol/L (136-145); Total Protein 6.8 gm/dL (5.7-8.2); Troponin I < 0.020 ng/mL (0.0-0.045); eGFR > 60 See Note
[2025-09-17 23:58] VITALS: BP 177/69; PULSE 60
[2025-09-17] MEDS: hydrALAZINE INJ 20 MG/ML VIAL 10 MG IVP (23:58)
[2025-09-18 00:03] LABS: Glucose Estimated Average 114 mg/dL (80-131); Hemoglobin A1C 5.6 % Hgb (4.8-6.0)
[2025-09-18 00:18] LABS: Collection Type, Urine Clean Catch
[2025-09-18 00:27] LABS: Amorphous Crystals,Urine Present (Absent); Bacteria,Urine Rare; Bilirubin,Urine Negative (Negative); Blood,Urine Trace (Negative); Clarity,Urine Clear (Clear/Hazy); Color,Urine Colorless (Lt Yel-Yel); Culture Indicated,Urine Not Indicated; Glucose, Urine Negative (Negative); Ketones,Urine Negative (Negative); Leukocyte Esterase,Urine Positive (Negative); Nitrite,Urine Negative (Negative); PH,Urine 6.5 (5.0-7.0); Protein,Urine Negative (Neg - Trace); RBC,Urine 10 /hpf (0-3); Specific Gravity,Urine 1.007 (1.001-1.035); Squamous Epithelial Cell,Urine < 1 /hpf (0-5); Urobilinogen,Urine Negative mg/dL (0.0-1.0); WBC,Urine 4 /hpf (0-5)
[2025-09-18 00:46] VITALS: BP 147/53; PULSE 54; RESP 19; O2SAT 100
[2025-09-18 00:53] LABS: Procalcitonin < 0.04 ng/ml (0.0-0.49)
== END 2025-09-18 01:02 | disposition home or self-care (01) ==
LOC: SERX 09-18 05:02
PROVIDERS: Emergency Provider Emergency Medicine; PCP Family Medicine
DX: I10 Essential (primary) hypertension (principal); E78.5 Hyperlipidemia, unspecified; Z86.73 Personal history of transient ischemic attack (TIA), and cerebral infarction without residual deficits; I48.91 Unspecified atrial fibrillation
CPT/HCPCS: 36415; 70450; 71045; 80053; 81001; 82248; 83036; 83735; 83880; 84145; 84484; 85025; 85652; 86140; 87502; 87635; 93005; 96374; 99284; J0360

== ENCOUNTER 2025-09-22 19:43 | Emergency (ER) | payer MEDICARE, SELFPAY ==
[2025-09-22] VITALS (15 sets, daily range): BP systolic 72–127; BP diastolic 41–53; PULSE 44–51; RESP 12–18; TEMP 36.5–36.6; O2SAT 94–100
--- NOTE | 2025-09-22 20:01 | EKG_ITS ---
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
--- NOTE | 2025-09-22 20:11 | PC.NURSE ---
PER PT STATEMENT MY HEARTRATE IS NORMALLY LOW BETWEEN 45 TO 55BPM
[2025-09-22] MEDS: SODIUM CHLORIDE 0.9% 1000 ML 1,000 ML 999 ML IV ×2 (20:13→20:41)
--- NOTE | 2025-09-22 20:14 | PD.EDSYNC ---
ED Syncope RME/HPI General Chief Complaint: General Adult/Misc Complain Stated Complaint: LOW BP Time Seen by Provider: 09/22/25 19:54 Arrival date/time: 09/22/25 19:43 Mode of arrival: ambulatory RME / HPI RME / HPI narrative: DR. NATION MAIN ED EVALUATION: Patient recently seen for hypertensive episode, currently on 3 anti-hypertensive medications for which she has been compliant. Notes escalation of blood pressure at home with systolic blood pressure exceeding 190. Patient took Clonidine 0.1 mg x3 tablets and soon there after became lightheaded, dizzy, and near syncope and presents to ED for evaluation. PMH: Cerebrovascular Accident, Transient Ischemic Attacks, Migraine, Atrial Fibrillation, Hypercholesterolemia, Hypertension, Hypotension, Ulcer, Gastroesophageal Reflux Disease, Kidney Stones, Arthritis, Gout, Anxiety PSH: Tubal Ligation Allergies: Sulfa Social: Negative Related Data Home Medications ?Medication ?Instructions ?Recorded ?Confirmed clorazepate dipotassium 7.5 mg 7.5 mg PO DAILY PRN Anxiety 10/26/23 09/01/25 tablet famotidine 20 mg tablet 20 mg PO BID 10/26/23 09/01/25 allopurinol 100 mg tablet 100 mg PO QDAY 09/01/25 09/01/25 atorvastatin 20 mg tablet 80 mg PO HS 09/01/25 09/01/25 losartan 100 mg tablet 100 mg PO QDAY 09/01/25 09/01/25 nadolol 40 mg tablet 40 mg PO QDAY 09/01/25 09/01/25 pantoprazole 40 mg tablet,delayed 40 mg PO QDAY 09/01/25 09/01/25 release Previous Rx's ?Medication ?Instructions ?Recorded apixaban 5 mg tablet (Eliquis) 5 mg PO BID #60 tabs 09/02/25 flecainide 100 mg tablet 100 mg PO Q12H #60 tabs 09/02/25 clonidine HCl 0.1 mg tablet 0.1 mg PO BID #60 tabs 09/18/25 Allergies Allergy/AdvReac Type Severity Reaction Status Date / Time shellfish derived Allergy Severe Hives Verified 12/23/25 22:28 Sulfa (Sulfonamide Allergy Severe Hives Verified 09/17/25 22:28 Antibiotics) Review of Systems Review of Systems Systems Reviewed: All systems reviewed, normal except as documented Past Medical History Past Medical History NEUROLOGIC: Positive Neurological Disorders, Cerebrovascular Accident, Transient Ischemic Attacks (TIA) and Migraine CARDIAC: Positive Cardiac Disorders, Atrial Fibrillation, Hypercholesterolemia, Hypertension and Hypotension RESPIRATORY: Positive Pneumonia GASTROINTESTINAL: Positive Gastrointestinal Disorders, Ulcer and Gastroesophageal Reflux Disease GENITOURINARY: Positive Kidney Stones REPRODUCTIVE: Positive Previous Pregnancies MUSCULOSKELETAL: Positive Musculoskeletal Disorders, Arthritis, Gout and Fractures PSYCHO/SOCIAL: Positive Anxiety OTHER HISTORY: Positive Falls, Chicken Pox, Measles and Mumps Family History FAMILY HISTORY: Positive Family Cardiac Disorders Surgical History SURGICAL: Positive Nose Surgery, Abdominal Surgery and Tubal Ligation ED Exam Narrative Physical exam: GEN. APPEARANCE: The patient is alert awake oriented X-3 notably hypotensive with systolic blood pressure reading in the 80-90 range. Patient has good eye contact. Patient is cooperative. VITALS: All vitals were reviewed and the pulse ox is 100%, which is normal according to my interpretation HEENT: Normocephalic, atraumatic and nontender. Pupils are equal and reactive. Oral mucosa is moist. NECK: Supple, nontender, no meningismus, no JVD. There is no thyromegaly and no lymphadenopathy. CHEST: Nontender on palpation no deformity and no crepitus. CARDIOVASCULAR: Bradycardia, no murmur or gallop rub or extra beats. LUNGS: Clear to auscultation bilaterally with symmetrical chest rise. No laboring tachypnea or wheezing. No intercostal subcostal retraction. No rales and no rhonchi. ABDOMEN: Soft, flat, nontender to palpation, no guarding or rebound tenderness. There are no abnormal masses palpated. No pulsatile masses or bruits. Active and normal bowel sounds. EXTREMITIES: Normal inspection and palpation. No edema. No cyanosis. Patient is able to move all 4 extremities well SKIN: Warm and dry, no rashes noted. MUSCULOSKELETAL: No lumbar or midline bony tenderness. There is no CVA tenderness. No paraspinal muscle spasm or tenderness. NEURO: Cranial nerves II through XII grossly intact. There are no focal neurologic deficits noted. GCS is 15 PSYCHIATRIC: Patient is in normal mood and affect, cooperative. LYMPHATICS: No major lymphadenopathy noted. Course Quality Measures none Orders Category Date Time Status Beer Brewer Q4H START 00 Care 09/22/25 20:10 Active EKG (ED ONLY) *Do not use* NOW Care 09/22/25 20:01 Completed Insert IV NOW Care 09/22/25 20:08 Active EKG (ED Only) Stat Exams 09/22/25 20:01 Draft XR chest 1V portable Stat Exams 09/22/25 20:17 Completed B-Type Natriuretic Peptide Stat Lab 09/22/25 20:28 Completed CBC Stat Lab 09/22/25 20:28 Completed Comprehensive Metabolic Panel Stat Lab 09/22/25 20:28 Completed Drug Screen,Urine Stat Lab 09/22/25 21:49 Completed Magnesium Stat Lab 09/22/25 20:28 Completed Troponin I Stat Lab 09/22/25 20:28 Completed Urinalysis, C/S if Indicated Stat Lab 09/22/25 21:49 Completed Sodium Chloride 0.9% 1000 ml [Ns] 1,000 ml Med 09/22/25 20:09 Discontinued IV 999 mls/hr Sodium Chloride 0.9% 1000 ml [Ns] 1,000 ml Med 09/22/25 20:19 Discontinued IV 999 mls/hr Vital Signs Vital signs: Vital Signs Pulse Rate 48 L 09/22/25 19:48 Respiratory Rate 17 09/22/25 19:48 Blood Pressure 72/47 L 09/22/25 19:48 Pulse Oximetry (%) 98 09/22/25 19:48 Oxygen Delivery Method Room Air 09/22/25 19:48 Syncope MDM Narrative MDM Narrative:: Scribe Attestation: IYu am scribing for and in the presence of Dr. Nation. Provider Notation: Although this document has been carefully reviewed, there may still be some phonetic and other typographical errors. These errors are purely grammatical due to imperfections in the software program and should not be construed in any way to compromise the substance of the patient's medical care during this visit. Patient recently seen for hypertensive episode, currently on 3 anti-hypertensive medications for which she has been compliant. Notes escalation of blood pressure at home with systolic blood pressure exceeding 190. Please see PE findings. Laboratory markers, including CBC and serum chemistries, were essentially unremarkable, excluding reduced GFR of 43. Patient's glucose mildly elevated at 119. Patient was found to be profoundly hypotensive with systolic blood pressure in the 70's. HR also low at 48 without AV block. Mentation however was clear. Patient was placed on surveillance system monitor and administered IV fluids while in trendelenburg position and blood pressure gradually improved to the mid 120's systolic range. Patient remained neurologically intact with no evidence of TIA/CVA throughout ED course. 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 Observed systolic greater than 100 and considered stable for discharge. Will modify antihypertensive regimen and discharge to home. Will consider discontinuing amlodipine and initiating 0.1 mg Clonidine patch weekly while continuing Losartan with 1 tablet of Clonidine if needed for rescue. Final diagnoses include accelerated hypertensive and adverse medication reaction. Patient data External records reviewed:: [facility] previous records (Reviewed prior ED records from 09/17/25. Patient was seen for Hypertension.) Clinical information provided by:: patient Social determinants that could affect healthcare access:: none Patient has the following chronic illnesses:: Cerebrovascular Accident, Transient Ischemic Attacks, Migraine, Atrial Fibrillation, Hypercholesterolemia, Hypertension, Hypotension, Ulcer, Gastroesophageal Reflux Disease, Kidney Stones, Arthritis, Gout, Anxiety How is presenting disease/condition affected by chronic disease/condition?: exacerbated by Evaluation data The following diagnostics were reviewed and interpreted by me:: lab results, radiology exam(s) and EKG tracing(s) (EKG at 20:05 shows normal sinus bradycardia at 46, normal axis, no ectopy, no signs of acute ischemia, per my interpretation.) Lab and/or radiology exams considered but not ordered:: None Interpretation Summary: RADIOLOGY Chest X-Ray: FINDINGS: Normal heart size No pneumonia or pulmonary edema Moderate osteopenia IMPRESSION: No active disease Medications / Prescriptions Medications or Prescriptions considered but not ordered:: None Medication administrations:: Medication Administration History Discontinued Medications Sodium Chloride (Ns) 1,000 mls @ 999 mls/hr IV .Q1H1M ONE Stop: 09/22/25 21:09 Last Infusion: 09/22/25 21:16 Dose: Infused Documented By: Admin: 09/22/25 20:13 Dose: 999 mls/hr Documented By: LINDA Sodium Chloride (Ns) 1,000 mls @ 999 mls/hr IV .Q1H1M ONE Stop: 09/22/25 21:19 Last Infusion: 09/22/25 21:43 Dose: Infused Documented By: Admin: 09/22/25 20:41 Dose: 999 mls/hr Documented By: LINDA See above if any. Consultations Consultation(s) initiated? (list below): No Diagnosis Syncope Differential Diagnosis: syncope due to orthostatic hypotension and vasovagal syncope Most likely diagnosis given after review of the tests above:: Accelerated hypertensive and Adverse medication reaction Admission Indicated Admission indicated?: not indicated Explain why admission is indicated or not indicated:: Patient does not meet admission criteria Admission Request Was there a request for admission?: No Disposition Plan Disposition Plan: Discharge Discharge Attestation Discharge Attestation: The patient and all family members were given an opportunity to ask questions and understood the discharge instructions. Discharge instructions specifically effects, indications for sooner follow up or return to the emergency department, and the expected course of current diagnosis. Patient condition: Stable Discharge Plan Plan Patient Disposition: HOME (Self Care) Prescriptions/Referrals Prescriptions/Med Rec: No Action nadolol 40 mg tablet 40 mg PO QDAY allopurinol 100 mg tablet 100 mg PO QDAY Patient Comments: TAKE 1 TABLET BY MOUTH EVERY DAY losartan 100 mg tablet 100 mg PO QDAY Patient Comments: TAKE 1 TABLET BY MOUTH EVERY DAY atorvastatin 20 mg tablet 80 mg PO HS Patient Comments: TAKE 1 TABLET BY MOUTH EVERY DAY pantoprazole 40 mg tablet,delayed release (DR/EC) 40 mg PO QDAY Patient Comments: TAKE 1 TABLET BY MOUTH EVERY DAY Eliquis 5 mg tablet 5 mg PO BID Qty: 60 0RF flecainide 100 mg tablet 100 mg PO Q12H Qty: 60 0RF clonidine HCl 0.1 mg tablet 0.1 mg PO BID Qty: 60 0RF famotidine 20 mg tablet 20 mg PO BID Patient Comments: TAKE 1 TABLET BY MOUTH TWICE A DAY FOR 90 DAYS clorazepate dipotassium 7.5 mg tablet 7.5 mg PO DAILY PRN (Reason: Anxiety) Patient Comments: TAKE 1 TABLET BY MOUTH EVERY DAY FOR 90 DAYS Referrals: Mazin Galvez MD [Primary Care Provider, Family Practice] - In 1 week Problem List Clinical Impression: Accelerated hypertension, Adverse effect of drug or medicament Impression comment: Accelerated hypertension/adverse medication reaction Patient/Caregiver Discharge Instructions Other Activity Instructions:: Gradually increasing activity level as tolerated. Diet Instructions: Reduce salt intake. Education Materials: Controlling High Blood Pressure, ED Hypertension, To Be Confirmed Additional Instructions: Discontinue amlodipine. Continue losartan nightly. Begin Catapres 0.1 mg weekly patch in AM. May continue to take only 1.1 mg tablet for systolic greater than 170 diastolic greater than 100. Print Language: Syriac Stand Alone Forms: Naty Award Info., Patient Portal Info Letter
--- NOTE | 2025-09-22 20:17 | XR_ITS ---
EXAMINATION: AP chest single view TECHNIQUE: AP portable upright chest single view Date and time: , 2024, 2037 hours, comparison September 17, 2025 INDICATIONS: Hypertension today FINDINGS: Normal heart size No pneumonia or pulmonary edema Moderate osteopenia IMPRESSION: No active disease
[2025-09-22 20:56] LABS: Basophils # (Auto) 0.0 Thou/mm3 (0.0-0.2); Basophils % (Auto) 0 % (0-2.5); Eosinophils # (Auto) 0.2 Thou/mm3 (0.0-0.5); Eosinophils % (Auto) 2 % (0-10); Hematocrit 40.1 % (36.0-46.0); Hemoglobin 12.9 g/dL (12.0-16.0); Immature Granulocytes Auto 0.02 Thou/mm3 (0.00-0.00); Lymphocytes # (Auto) 2.9 Thou/mm3 (1.0-4.8); Lymphocytes % (Auto) 32 % (10-50); Mean Corpuscular HGB Conc 32.2 g/dl (31.0-37.0); Mean Corpuscular Hemoglobin 30.2 pg (25.0-35.0); Mean Corpuscular Volume 94 fL (80-100); Monocytes # (Auto) 0.7 Thou/mm3 (0.0-0.8); Monocytes % (Auto) 8 % (0-12); Neutrophils # (Auto) 5.3 Thou/mm3 (1.8-7.7); Neutrophils % (Auto) 58 % (37-80); Nucleated Red Blood Cell # 0.00 Thou/mm3 (0.00-0.00); Nucleated Red Blood Cell % 0 /100 WBC (0); Platelet Count 256 Thou/mm3 (140-440); RDW Standard Deviation 48.8 fL (36.4-46.3); Red Blood Count 4.27 Miln/mm3 (4.00-5.20); White Blood Count 9.3 Thou/mm3 (3.6-11.0)
[2025-09-22 21:05] LABS: Alanine Aminotransferase 17 U/L (10-49); Albumin, Serum 4.5 gm/dL (3.4-4.8); Albumin/Globulin Ratio 2.0 (1.2-2.2); Alkaline Phosphatase 94 U/L (46-116); Anion Gap 10 (7-16); Aspartate Amino Transferase 26 U/L (0-34); BUN/Creatinine Ratio 16 Ratio (12-20); Bilirubin,Total 0.3 mg/dL (0.3-1.2); Blood Urea Nitrogen 21 mg/dL (9-23); Calcium 8.8 mg/dL (8.3-10.6); Calcium (Corrected) 8.8 mg/dL (8.5-10.1); Carbon Dioxide 27.9 mMol/L (20.0-31.0); Chloride 107 mMol/L (98-107); Creatinine (Component) 1.3 mg/dL (0.6-1.3); Globulin 2.2 gm/dL (2.3-3.5); Glucose 119 mg/dL (74-106); Magnesium 1.9 mg/dL (1.6-2.6); Osmolality,Calculated 292 (275-295); Potassium 4.8 mMol/L (3.4-5.1); Sodium 145 mMol/L (136-145); Total Protein 6.7 gm/dL (5.7-8.2); Troponin I < 0.020 ng/mL (0.0-0.045); eGFR 43 See Note
[2025-09-22 21:21] LABS: B-Type Natriuretic Peptide 104 pg/mL (0-100)
[2025-09-22 22:03] LABS: Collection Type, Urine Clean Catch
[2025-09-22 22:08] LABS: Bilirubin,Urine Negative (Negative); Blood,Urine Negative (Negative); Clarity,Urine Clear (Clear/Hazy); Color,Urine Colorless (Lt Yel-Yel); Culture Indicated,Urine Not Indicated; Glucose, Urine Negative (Negative); Ketones,Urine Negative (Negative); Leukocyte Esterase,Urine Negative (Negative); Nitrite,Urine Negative (Negative); PH,Urine 7.0 (5.0-7.0); Protein,Urine Negative (Neg - Trace); RBC,Urine < 1 /hpf (0-3); Specific Gravity,Urine 1.006 (1.001-1.035); Squamous Epithelial Cell,Urine 1 /hpf (0-5); Urobilinogen,Urine Negative mg/dL (0.0-1.0); WBC,Urine < 1 /hpf (0-5)
[2025-09-22 22:15] LABS: Amphetamine/Methamp Scrn,U Negative (Negative); Barbiturate Screen,Urine Negative (Negative); Benzodiazepines Screen,Urine Positive (Negative); Benzoylecgonine Screen, Ur Negative (Negative); Fentanyl Screen,Urine Negative (Negative); Opiate Screen,Urine Negative (Negative); THC Screen,Urine Negative (Negative)
[2025-09-23 00:21] VITALS: BP 118/64; PULSE 58; RESP 19; O2SAT 98
== END 2025-09-23 00:23 | disposition home or self-care (01) ==
PROVIDERS: Emergency Provider Emergency Medicine; PCP Family Medicine
DX: R42 Dizziness and giddiness (principal); R55 Syncope and collapse; I10 Essential (primary) hypertension; T46.5X5A Adverse effect of other antihypertensive drugs, initial encounter; R00.1 Bradycardia, unspecified; I49.8 Other specified cardiac arrhythmias; E78.00 Pure hypercholesterolemia, unspecified; I48.91 Unspecified atrial fibrillation; Z79.01 Long term (current) use of anticoagulants
CPT/HCPCS: 36415; 71045; 80053; 80307; 81001; 83735; 83880; 84484; 85025; 93005; 96360; 99284; J7030